=== PATIENT | male | born 2000 | race Caucasian/White ===

== ENCOUNTER → 2019-09-10 | Outpatient (CLI) | payer OTHER, MEDICARE ==
[2019-09-10 12:35] LABS: Basophils # (A) 0.1 k/uL (0-0.2); Basophils % (A) 1 %; Eosinophils # (A) 0.4 k/uL (0-0.7); Eosinophils % (A) 5 %; HCT 47.7 % (39.0-53.0); HGB 15.9 gm/dL (13.0-17.5); Lymphocytes # (A) 1.8 k/uL (1.0-4.8); Lymphocytes % (A) 22 %; MCH 30.6 pg (25.0-35.0); MCHC 33.4 g/dL (31.0-37.0); MCV 91.5 fL (80.0-100.0); Monocytes # (A) 0.4 k/uL (0-1.0); Monocytes % (A) 5 %; Neutrophils # (A) 5.5 k/uL (1.3-7.7); Neutrophils % (A) 66 %; Platelet Count 198 k/uL (150-450); RBC 5.21 m/uL (4.30-5.90); RDW 11.9 % (11.5-15.5); WBC 8.3 k/uL (3.8-10.6)
[2019-09-10 19:00] LABS: ALT 15 U/L (10-49); AST 20 U/L (14-35); Albumin/Globulin Ratio 2.25 (1.60-3.17); Alkaline Phosphatase 80 U/L (41-126); Chol/HDL Ratio 1.93; Cholesterol 87 mg/dL (0-200); Glucose 82 mg/dL (70-110); Total Bilirubin 0.4 mg/dL (0.2-1.2); Total Protein 6.5 g/dL (6.2-8.2); Triglycerides <50.0 mg/dL (0.0-149.0)
[2019-09-10 20:04] LABS: Hemoglobin A1C 4.9 % (4.0-6.0)
== END | disposition home or self-care (01) ==
LOC: LABWHC1 11:33
PROVIDERS: ATTEND Nurse Practitioner Family
DX: Z51.81 Encounter for therapeutic drug level monitoring (principal); Z79.899 Other long term (current) drug therapy
CPT/HCPCS: 36415; 80061; 80076; 82947; 83036; 84439; 84443; 85025

== ENCOUNTER 2020-12-15 09:12 | Emergency (ER) | payer MEDICARE, OTHER ==
--- NOTE | 2020-12-15 09:37 | ED ---
Psych HPI - General Source: patient, RN notes reviewed Mode of arrival: ambulatory Limitations: no limitations <Khai Farnsworth - Last Filed: 12/15/20 09:36> <Layton Castle - Last Filed: 12/19/20 13:02> - General Chief Complaint: Psychiatric Symptoms Stated Complaint: Mental Health Time Seen by Provider: 12/15/20 09:16 - History of Present Illness Initial Comments: 20-year-old male presents emergency department via EMS from [facility] for psychiatric evaluation. Patient had increased agitation recently. Information is very limited as patient is not cystic. Patient reportedly had a new psychiatric medication patch applied which was removed they feel that symptoms started after this medication was started (Khai Farnsworth) - Related Data Home Medications Medication Instructions Recorded Confirmed Asenapine [Secuado 3.8MG Patch] 1 patch TRANSDERM Q24H 12/15/20 12/15/20 Divalproex Sprinkle [Depakote 250 mg PO BID@0700,199912/15/20 12/15/20 Sprinkle] Melatonin 6 mg PO HS 12/15/20 12/15/20 Methylphenidate HCl [Ritalin LA] 20 mg PO DAILY@0700 12/15/20 12/15/20 Mirtazapine [Remeron] 30 mg PO HS@199912/15/20 12/15/20 diphenhydrAMINE [Benadryl] 25 mg PO Q4H PRN 12/15/20 12/15/20 Allergies Allergy/AdvReac Type Severity Reaction Status Date / Time No Known Allergies Allergy Verified 12/15/20 10:48 Review of Systems ROS Other: All systems not noted in ROS Statement are negative. <hKai Farnsworth - Last Filed: 12/15/20 09:36> ROS Other: All systems not noted in ROS Statement are negative. <Layton Castle - Last Filed: 12/19/20 13:02> ROS Statement: Those systems with pertinent positive or pertinent negative responses have been documented in the HPI. Past Medical History Additional Past Medical History / Comment(s): autism History of Any Multi-Drug Resistant Organisms: Unobtainable Past Surgical History: Unable to Obtain Past Psychological History: Unable to Obtain Smoking Status: Unknown if ever smoked Past Alcohol Use History: Unable to Obtain Past Drug Use History: Unable to Obtain <Khai Farnsworth M - Last Filed: 12/15/20 09:36> General Exam Limitations: language barrier, altered mental status General appearance: alert, in no apparent distress Head exam: Present: atraumatic, normocephalic, normal inspection Eye exam: Present: normal appearance, PERRL, EOMI. Absent: scleral icterus, conjunctival injection, periorbital swelling ENT exam: Present: normal exam, mucous membranes moist Neck exam: Present: normal inspection, full ROM. Absent: tenderness, meningismus, lymphadenopathy Respiratory exam: Present: normal lung sounds bilaterally. Absent: respiratory distress, wheezes, rales, rhonchi, stridor Cardiovascular Exam: Present: regular rate, normal rhythm, normal heart sounds. Absent: systolic murmur, diastolic murmur, rubs, gallop, clicks Neurological exam: Present: alert Skin exam: Present: warm, dry, intact, normal color. Absent: rash <Khai Farnsworth - Last Filed: 12/15/20 09:36> Course Vital Signs 12/15/20 12/15/20 12/15/20 09:30 19:09 21:00 Temperature 97.4 F L Pulse Rate 79 79 Respiratory 18 18 16 Rate Blood Pressure 117/69 117/98 O2 Sat by Pulse 98 98 Oximetry 12/15/20 12/15/20 12/16/20 22:00 23:00 02:00 Temperature Pulse Rate Respiratory 17 16 17 Rate Blood Pressure O2 Sat by Pulse Oximetry 12/16/20 12/16/20 12/16/20 03:00 04:00 05:00 Temperature 98.5 F Pulse Rate 67 Respiratory 16 17 17 Rate Blood Pressure 115/69 O2 Sat by Pulse 99 Oximetry 12/16/20 12/17/20 12/18/20 12:20 22:05 06:40 Temperature 97.7 F Pulse Rate 98 108 H Respiratory 18 14 16 Rate Blood Pressure 126/61 114/69 130/88 O2 Sat by Pulse 98 96 100 Oximetry 12/18/20 12/18/20 12/18/20 07:32 12:35 20:00 Temperature 98.1 F Pulse Rate 99 107 H Respiratory 16 16 Rate Blood Pressure 117/80 126/76 O2 Sat by Pulse 98 99 Oximetry 12/18/20 12/19/20 21:00 06:35 Temperature 98.2 F Pulse Rate 96 Respiratory 16 20 Rate Blood Pressure 127/88 O2 Sat by Pulse 98 Oximetry Medical Decision Making - Lab Data Result diagrams: 12/16/20 15:30 12/16/20 15:30 <Layton Castle - Last Filed: 12/19/20 13:02> - Medical Decision Making 20-year-old male who had been reported in the emergency department awaiting placement for increased aggression. At approximately 1300 on December 19 the brother who is by mouth a and the [facility] had planned to take the patient back to his [facility] where he resides. Patient will be released into the care of the staff at his [facility]. (Layton Castle) - Lab Data Lab Results 12/16/20 12/16/20 12/18/20 Range/Units 15:30 15:30 09:25 WBC 6.8 (3.8-10.6) k/uL RBC 5.10 (4.30-5.90) m/uL Hgb 16.1 (13.0-17.5) gm/dL Hct 45.1 (39.0-53.0) % MCV 88.6 (80.0-100.0) fL MCH 31.7 (25.0-35.0) pg MCHC 35.8 (31.0-37.0) g/dL RDW 12.1 (11.5-15.5) % Plt Count 266 (150-450) k/uL MPV 8.0 Neutrophils % 66 % Lymphocytes % 24 % Monocytes % 7 % Eosinophils % 2 % Basophils % 0 % Neutrophils # 4.5 (1.3-7.7) k/uL Lymphocytes # 1.6 (1.0-4.8) k/uL Monocytes # 0.5 (0-1.0) k/uL Eosinophils # 0.1 (0-0.7) k/uL Basophils # 0.0 (0-0.2) k/uL Sodium 139 (137-145) mmol/L Potassium 4.0 (3.5-5.1) mmol/L Chloride 102 (98-107) mmol/L Carbon Dioxide 22 (22-30) mmol/L Anion Gap 15 mmol/L BUN 16 (9-20) mg/dL Creatinine 0.63 L (0.66-1.25) mg/dL Est GFR (CKD-EPI)AfAm >90 (>60 ml/min/1.73 sqM) Est GFR (CKD-EPI)NonAf >90 (>60 ml/min/1.73 sqM) Glucose 73 L (74-99) mg/dL Calcium 10.1 (8.4-10.2) mg/dL Total Bilirubin 0.7 (0.2-1.3) mg/dL AST 71 H (17-59) U/L ALT 26 (4-49) U/L Alkaline Phosphatase 86 (38-126) U/L Total Protein 7.8 (6.3-8.2) g/dL Albumin 4.6 (3.5-5.0) g/dL Vitamin B12 110.0 L (200.0-944.0) pg/mL Folate Cancelled TSH 2.980 (0.465-4.680) mIU/L Coronavirus (PCR) Not Detected (Not Detectd) Disposition <Khai Farnsworth - Last Filed: 12/15/20 09:36> Is patient prescribed a controlled substance at d/c from ED?: No Time of Disposition: 13:02 <Layton Castle - Last Filed: 12/19/20 13:02> Clinical Impression: Autism Disposition: HOME SELF-CARE Condition: Fair Instructions (If sedation given, give patient instructions): Autism Spectrum Disorder (DC) Referrals: None,Stated [Primary Care Provider] - 1-2 days
[2020-12-15] MEDS ORDERED: LORazepam 2 MG/ML INJ IM STA (11:47)
[2020-12-15] MEDS ORDERED: ZIPRASIDONE 20 MG VIAL IM STA (12:33)
[2020-12-15] MEDS: LORazepam 2 MG/ML INJ IM PRN (23:03)
[2020-12-16] MEDS ORDERED: DIVALPROEX SPRINKLE 125 MG CAP.SPRINK PO SCH (09:00)
[2020-12-16] MEDS: LORazepam 2 MG/ML INJ IM PRN (09:01)
--- NOTE | 2020-12-16 12:59 | P.CN ---
Psychiatric Consult - . Consult date: 12/16/20 Consult:: IDENTIFYING DATA: This patient is a 20-year-old, single, development disabled, male who presents to the emergency department for psychiatric evaluation and increased agitation. HISTORY OF PRESENT ILLNESS: The patient presented to the hospital on 12/15/2020 for increasing agitation. Patient is nonverbal and unable to participate in the psychiatric interview. Collateral information was provided by the patient's outpatient psychiatrist Dr Garsia. Patient was reportedly started on an asenapine patch and depakote sprinkles by [facility] for increasing agitation. Reportedly since starting this medication a few days ago, the patient began experiencing a worsening of behaviors. At baseline patient has severe autism and is noncommunicative and difficult to direct. As per Dr. Garsia, the patient has been nonadherent with any prescribed medications and therefore was placed on the patch so that he may receive some form of treatment for his agitation. Reportedly, the patient would only take his medications if it was crushed up int o his food. PAST PSYCHIATRIC HISTORY: The patient has severe autism. Past medication trials include Saphris and Depakote. Unable to determine if he has had any prior inpatient psychiatric hospitalizations. He is currently open with [facility] in the outpatient setting. PAST MEDICAL HISTORY: Additional Past Medical History / Comment(s): autism History of Any Multi-Drug Resistant Organisms: Unobtainable Past Surgical History: Unable to Obtain Past Psychological History: Unable to Obtain Smoking Status: Unknown if ever smoked Past Alcohol Use History: Unable to Obtain Past Drug Use History: Unable to Obtain ALLERGIES: NO KNOWN DRUG ALLERGIES CHEMICAL DEPENDENCY HISTORY: Unable to obtain FAMILY PSYCHIATRIC/SUBSTANCE USE HISTORY: Unable to obtain SOCIAL HISTORY: The patient has been staying at [address] [place] [address] in [place], [place]. He is single and never . His sibling Johann is in the process of becoming his guardian. MENTAL STATUS EXAM: General Appearance: Patient appears to be stated age is alert, uncooperative, and disheveled. He is wearing a hospital gown and is currently in restraints in bed. Behavior: Patient is displaying psychomotor agitation. Eye contact is poor. He appears to be hyper oral and attempting to place feces in his mouth. Speech: Patient is nonverbal. Mood/Affect: Unable to assess. Suicidality/Homicidality: Unable to assess. Perceptions: Unable to assess. Though content/process: Unable to assess. Memory and concentration: Grossly poor. Judgment and insight: Very poor. IMPRESSIONS: Developmental disability - autism spectrum disorder PLAN: -At this time patient DOES meet criteria for inpatient psychiatric admission. He will require placement in a psychiatric facility that can accommodate his developmental disability. -Patient DOES NOT have decision making capacity at this time and is unable to reason through and communicate/appreciate the risks, benefits and alternatives to treatment. -Would recommend the following medication changes/additions: We will increase his Depakote sprinkles to 250 mg by mouth daily and 500 mg at bedtime for mood stabilization We will discontinue Zyprexa Zydis and start Haldol oral solution 2 mg by mouth twice a day to aid in medication adherence for mood stabilization Continue Remeron 30 mg by mouth at bedtime for insomnia Continue Zyprexa when necessary 5 mg IM every 8 hours for agitation -Will continue to follow along 12/16/20 12:49
[2020-12-16] MEDS: HALOPERIDOL ORAL SOLN 10 MG/5 ML CUP PO SCH ×2 (15:19→21:45)
[2020-12-16 15:45] LABS: Basophils % (A) 0 %; Eosinophils # (A) 0.1 k/uL (0-0.7); Eosinophils % (A) 2 %; HCT 45.1 % (39.0-53.0); HGB 16.1 gm/dL (13.0-17.5); Lymphocytes # (A) 1.6 k/uL (1.0-4.8); Lymphocytes % (A) 24 %; MCH 31.7 pg (25.0-35.0); MCHC 35.8 g/dL (31.0-37.0); MCV 88.6 fL (80.0-100.0); Monocytes # (A) 0.5 k/uL (0-1.0); Monocytes % (A) 7 %; Neutrophils # (A) 4.5 k/uL (1.3-7.7); Neutrophils % (A) 66 %; Platelet Count 266 k/uL (150-450); RDW 12.1 % (11.5-15.5); WBC 6.8 k/uL (3.8-10.6)
[2020-12-16 16:00] LABS: ALT 26 U/L (4-49); AST 71 U/L (17-59); African American GFR (CKD) >90 (>60 ml/min/1.73 sqM); Albumin 4.6 g/dL (3.5-5.0); Alkaline Phosphatase 86 U/L (38-126); Anion Gap 15 mmol/L; Blood Urea Nitrogen 16 mg/dL (9-20); Calcium 10.1 mg/dL (8.4-10.2); Carbon Dioxide 22 mmol/L (22-30); Chloride 102 mmol/L (98-107); Glucose 73 mg/dL (74-99); Non-African American GFR(CKD) >90 (>60 ml/min/1.73 sqM); Sodium 139 mmol/L (137-145); Total Bilirubin 0.7 mg/dL (0.2-1.3); Total Protein 7.8 g/dL (6.3-8.2)
[2020-12-16] MEDS: MIRTAZAPINE 15 MG TAB PO SCH (20:58)
[2020-12-16] MEDS: MELATONIN 3 MG TABLET PO SCH (20:58)
[2020-12-16] MEDS ORDERED: HALOPERIDOL ORAL SOLN 10 MG/5 ML CUP PO SCH (21:00)
[2020-12-16] MEDS ORDERED: OLANZapine ODT 5 MG TAB PO SCH ×2 (21:00)
[2020-12-16] MEDS: DIVALPROEX SPRINKLE 125 MG CAP.SPRINK PO SCH (21:32)
[2020-12-17] MEDS: OLANZapine 10 MG VIAL IM PRN (01:10)
[2020-12-17] MEDS: HALOPERIDOL ORAL SOLN 10 MG/5 ML CUP PO SCH ×2 (01:14→21:41)
[2020-12-17] MEDS: DIVALPROEX SPRINKLE 125 MG CAP.SPRINK PO SCH ×2 (09:10→21:42)
[2020-12-17] MEDS ORDERED: HALOPERIDOL ORAL SOLN 10 MG/5 ML CUP PO STA (14:00)
[2020-12-17] MEDS: MIRTAZAPINE 15 MG TAB PO SCH (21:39)
[2020-12-17] MEDS: MELATONIN 3 MG TABLET PO SCH (21:39)
[2020-12-18] MEDS: HALOPERIDOL ORAL SOLN 10 MG/5 ML CUP PO SCH ×2 (08:46→21:52)
[2020-12-18] MEDS: DIVALPROEX SPRINKLE 125 MG CAP.SPRINK PO SCH ×2 (08:46→21:53)
[2020-12-18] MEDS: MIRTAZAPINE 15 MG TAB PO SCH (21:53)
[2020-12-18] MEDS: MELATONIN 3 MG TABLET PO SCH (21:53)
[2020-12-19] MEDS: OLANZapine 10 MG VIAL IM PRN ×2 (03:17→15:32)
[2020-12-19 07:19] VITALS: TEMP 98.2
[2020-12-19] MEDS: HALOPERIDOL ORAL SOLN 10 MG/5 ML CUP PO SCH (10:12)
[2020-12-19] MEDS: DIVALPROEX SPRINKLE 125 MG CAP.SPRINK PO SCH (11:45)
[2020-12-19 17:19] VITALS: BP 122/88; PULSE 86; RESP 18
== END 2020-12-19 17:38 | disposition home or self-care (01) ==
LOC: EC 09:12
DX: F84.0 Autistic disorder (principal); Z20.822 Contact with and (suspected) exposure to COVID-19
CPT/HCPCS: 99285; 96372; 82075; 36415; 80053; 84443; 82607; 85025; J2060 ×2; J3486; 82746

== ENCOUNTER 2021-01-11 17:32 | Emergency (ER) | payer MEDICARE, OTHER ==
[2021-01-11 18:47] LABS: Basophils % (A) 0 %; Eosinophils # (A) 0.1 k/uL (0-0.7); Eosinophils % (A) 1 %; HCT 48.5 % (39.0-53.0); HGB 16.1 gm/dL (13.0-17.5); Lymphocytes # (A) 1.2 k/uL (1.0-4.8); Lymphocytes % (A) 10 %; MCH 30.6 pg (25.0-35.0); MCHC 33.3 g/dL (31.0-37.0); MCV 91.9 fL (80.0-100.0); Mean Platelet Volume 7.9; Monocytes # (A) 0.7 k/uL (0-1.0); Monocytes % (A) 6 %; Neutrophils # (A) 9.5 k/uL (1.3-7.7); Neutrophils % (A) 82 %; Platelet Count 222 k/uL (150-450); RBC 5.27 m/uL (4.30-5.90); RDW 12.9 % (11.5-15.5); WBC 11.6 k/uL (3.8-10.6)
--- NOTE | 2021-01-11 19:05 | ED ---
General Adult HPI - General Chief complaint: Recheck/Abnormal Lab/Rx Stated complaint: poss med reaction Time Seen by Provider: 01/11/21 17:39 Source: patient, EMS, RN notes reviewed, old records reviewed Mode of arrival: EMS Limitations: language barrier, altered mental status - History of Present Illness Initial comments: 20-year-old male who had presented from the home where he resides with an elevated heart rate and elevated blood pressure. He apparently also been somewhat diaphoretic. He was seen in this emergency Department with the last month for increased agitation and his medications were adjusted at at that time including increasing his Depakote and changing Zyprexa to Haldol. Patient is nonverbal and unable to provide any history or complaints. There was no reported fever or vomiting. - Related Data Home Medications Medication Instructions Recorded Confirmed Divalproex Sprinkle [Depakote 500 mg PO BID@0700,199912/15/20 01/11/21 Sprinkle] Methylphenidate HCl [Ritalin LA] 20 mg PO DAILY@0700 12/15/20 01/11/21 diphenhydrAMINE [Benadryl] 25 mg PO HS@199912/15/20 01/11/21 Haloperidol Oral Soln [Haldol Oral 6 mg PO HS@199901/11/21 01/11/21 Soln] LORazepam ORAL CONC [Ativan 1 mg PO BID@0800,1500 01/11/21 01/11/21 Intensol] LORazepam ORAL CONC [Ativan 2 mg PO HS@199901/11/21 01/11/21 Intensol] Allergies Allergy/AdvReac Type Severity Reaction Status Date / Time No Known Allergies Allergy Verified 01/11/21 18:23 Review of Systems ROS Statement: Those systems with pertinent positive or pertinent negative responses have been documented in the HPI. ROS Other: All systems not noted in ROS Statement are negative. Past Medical History Additional Past Medical History / Comment(s): autism, cerebral palsy, cognitive delay History of Any Multi-Drug Resistant Organisms: Unobtainable Past Surgical History: Unable to Obtain Past Psychological History: ADD/ADHD Smoking Status: Unknown if ever smoked Past Alcohol Use History: Unable to Obtain Past Drug Use History: Unable to Obtain General Exam Limitations: language barrier, altered mental status General appearance: alert, in no apparent distress Head exam: Present: atraumatic, normocephalic Eye exam: Present: normal appearance, PERRL ENT exam: Present: mucous membranes dry Neck exam: Present: normal inspection. Absent: tenderness, meningismus Respiratory exam: Present: normal lung sounds bilaterally. Absent: respiratory distress, wheezes Cardiovascular Exam: Present: normal rhythm, tachycardia (Heart rate around 100) GI/Abdominal exam: Present: soft. Absent: distended, tenderness, guarding Extremities exam: Present: normal inspection, normal capillary refill. Absent: pedal edema, calf tenderness Neurological exam: Present: alert, other (Patient is ambulatory in the emergency department.). Absent: oriented X3 Skin exam: Present: warm, diaphoretic. Absent: cyanosis Course Vital Signs 01/11/21 01/11/21 17:39 19:59 Temperature 98.0 F 97.8 F Pulse Rate 111 H 117 H Respiratory 16 18 Rate Blood Pressure 144/99 137/79 O2 Sat by Pulse 100 100 Oximetry EKG Findings - EKG Comments: EKG Findings:: EKG: Sinus tachycardia with short CT baseline artifact, no ST segment elevation, rate of 113, CT interval 84, QRS duration 80, QTC 441. Medical Decision Making - Medical Decision Making 20-year-old male brought in for possible medication reaction, there was concern that the patient had an elevated heart rate and elevated blood pressure secondary to recent medication change. He was started on increased dose of Depakote. His Depakote level today is therapeutic but on the low end of normal at 55. He has mild leukocytosis of uncertain etiology, normal electrolytes. EKG showing sinus tachycardia 113, he is somewhat agitated at the time of this EKG and throughout his stay in the emergency department although he is able to be redirected. He is nonverbal and unable to give history. At this time patient will be discharged with very close outpatient follow-up and return parameters. Vital signs will be monitored. - Lab Data Result diagrams: 01/11/21 18:39 01/11/21 18:39 Lab Results 01/11/21 01/11/21 Range/Units 18:39 18:39 WBC 11.6 H (3.8-10.6) k/uL RBC 5.27 (4.30-5.90) m/uL Hgb 16.1 (13.0-17.5) gm/dL Hct 48.5 (39.0-53.0) % MCV 91.9 (80.0-100.0) fL MCH 30.6 (25.0-35.0) pg MCHC 33.3 (31.0-37.0) g/dL RDW 12.9 (11.5-15.5) % Plt Count 222 (150-450) k/uL MPV 7.9 Neutrophils % 82 % Lymphocytes % 10 % Monocytes % 6 % Eosinophils % 1 % Basophils % 0 % Neutrophils # 9.5 H (1.3-7.7) k/uL Lymphocytes # 1.2 (1.0-4.8) k/uL Monocytes # 0.7 (0-1.0) k/uL Eosinophils # 0.1 (0-0.7) k/uL Basophils # 0.0 (0-0.2) k/uL Sodium 139 (137-145) mmol/L Potassium 4.4 (3.5-5.1) mmol/L Chloride 104 (98-107) mmol/L Carbon Dioxide 26 (22-30) mmol/L Anion Gap 9 mmol/L BUN 16 (9-20) mg/dL Creatinine 0.56 L (0.66-1.25) mg/dL Est GFR (CKD-EPI)AfAm >90 (>60 ml/min/1.73 sqM) Est GFR (CKD-EPI)NonAf >90 (>60 ml/min/1.73 sqM) Glucose 113 H (74-99) mg/dL Calcium 10.0 (8.4-10.2) mg/dL Magnesium 2.0 (1.6-2.3) mg/dL Total Bilirubin 0.3 (0.2-1.3) mg/dL AST 39 (17-59) U/L ALT 27 (4-49) U/L Alkaline Phosphatase 76 (38-126) U/L Total Protein 7.2 (6.3-8.2) g/dL Albumin 4.3 (3.5-5.0) g/dL Valproic Acid 55.8 ug/mL Disposition Clinical Impression: Dehydration, Autism Disposition: HOME SELF-CARE Condition: Fair Additional Instructions: Please monitor heart rate and blood pressure at home. Please watch for fever. Return the emergency department with any worsening or changing signs or sym ptoms. Is patient prescribed a controlled substance at d/c from ED?: No Referrals: None,Stated [Primary Care Provider] - 1-2 days Time of Disposition: 20:09
[2021-01-11 19:20] LABS: ALT 27 U/L (4-49); AST 39 U/L (17-59); African American GFR (CKD) >90 (>60 ml/min/1.73 sqM); Albumin 4.3 g/dL (3.5-5.0); Alkaline Phosphatase 76 U/L (38-126); Anion Gap 9 mmol/L; Blood Urea Nitrogen 16 mg/dL (9-20); Carbon Dioxide 26 mmol/L (22-30); Chloride 104 mmol/L (98-107); Glucose 113 mg/dL (74-99); Non-African American GFR(CKD) >90 (>60 ml/min/1.73 sqM); Potassium 4.4 mmol/L (3.5-5.1); Sodium 139 mmol/L (137-145); Total Bilirubin 0.3 mg/dL (0.2-1.3); Total Protein 7.2 g/dL (6.3-8.2)
[2021-01-11 19:26] LABS: Valproic Acid (Depakene) 55.8 ug/mL
[2021-01-11 20:00] VITALS: BP 137/79; RESP 18; TEMP 97.8
[2021-01-11 20:12] VITALS: PULSE 104
== END 2021-01-11 20:50 | disposition home or self-care (01) ==
LOC: EEVIPCON 17:32 → EC 17:32
DX: E86.0 Dehydration (principal); F84.0 Autistic disorder
CPT/HCPCS: 36415; 80053; 80164; 83735; 85025; 93005; 99284

== ENCOUNTER 2021-01-18 11:00 | Emergency (ER) | payer MEDICARE, OTHER ==
[2021-01-18 11:11] VITALS: BP 126/79; PULSE 126; RESP 18; TEMP 98.3
--- NOTE | 2021-01-18 11:59 | CT ---
EXAMINATION TYPE: CT brain wo con DATE OF EXAM: 01/18/2021 COMPARISON: None HISTORY: 20-year-old male Fall with Left supraorbital injury. TECHNIQUE: Examination was done in axial plane without intravenous contrast. Coronal and sagittal r econstructions performed. CT DLP: 2481.4 mGycm Automated exposure control for dose reduction was used. FINDINGS: There is no evidence of acute intracranial hemorrhage, acute ischemic changes, mass, mass-effect, or extra-axial fluid collection. There is no effacement of cerebral sulci or basal subarachnoid cister ns. There is no hydrocephalus. There is no midline shift. Gimenez-white matter distinction is preserv ed. Some early cerebral cortical volume loss. Leftward nasal septal deviation. Orbits and globes appear symmetric and intact. Paranasal sinuses and mastoid air cells are clear. No calvarial fracture. IMPRESSION: No acute intracranial abnormality seen.
[2021-01-18] MEDS ORDERED: LORazepam 2 MG/ML INJ IM STA (12:08)
--- NOTE | 2021-01-18 12:12 | ED ---
General Adult HPI - General Chief complaint: Extremity Injury, Upper Stated complaint: Hematoma on head Time Seen by Provider: 01/18/21 11:18 Source: EMS, RN notes reviewed Mode of arrival: EMS Limitations: altered mental status - History of Present Illness Initial comments: 20-year-old male presents from [facility] home for increased agitation after stopping Haldol. Patient was stopped his medication yesterday of Haldol. It is unclear why he was stopped. Patient is nonverbal and will report given. Patient was sent in to evaluate after head injury. Patient reportedly hit herself off the wall. No other reported injuries or complaints from staff. - Related Data Home Medications Medication Instructions Recorded Confirmed Divalproex Sprinkle [Depakote 500 mg PO BID@0700,199912/15/20 01/11/21 Sprinkle] Methylphenidate HCl [Ritalin LA] 20 mg PO DAILY@0700 12/15/20 01/11/21 diphenhydrAMINE [Benadryl] 25 mg PO HS@199912/15/20 01/11/21 Haloperidol Oral Soln [Haldol Oral 6 mg PO HS@199901/11/21 01/11/21 Soln] LORazepam ORAL CONC [Ativan 1 mg PO BID@0800,1500 01/11/21 01/11/21 Intensol] LORazepam ORAL CONC [Ativan 2 mg PO HS@199901/11/21 01/11/21 Intensol] Allergies Allergy/AdvReac Type Severity Reaction Status Date / Time No Known Allergies Allergy Verified 01/11/21 18:23 Review of Systems ROS Statement: Those systems with pertinent positive or pertinent negative responses have been documented in the HPI. ROS Other: All systems not noted in ROS Statement are negative. Past Medical History Additional Past Medical History / Comment(s): autism, cerebral palsy, cognitive delay History of Any Multi-Drug Resistant Organisms: Unobtainable Past Surgical History: Unable to Obtain Past Psychological History: ADD/ADHD Smoking Status: Unknown if ever smoked Past Alcohol Use History: Unable to Obtain Past Drug Use History: Unable to Obtain General Exam Limitations: altered mental status General appearance: alert, in no apparent distress Head exam: Present: atraumatic, normocephalic. Absent: normal inspection (Small hematoma left) Eye exam: Present: normal appearance, PERRL, EOMI. Absent: scleral icterus, conjunctival injection, periorbital swelling ENT exam: Present: normal exam, mucous membranes moist Neck exam: Present: normal inspection. Absent: tenderness, meningismus, lymphadenopathy Respiratory exam: Present: normal lung sounds bilaterally. Absent: respiratory distress, wheezes, rales, rhonchi, stridor Cardiovascular Exam: Present: normal rhythm, tachycardia, normal heart sounds. Absent: systolic murmur, diastolic murmur, rubs, gallop, clicks GI/Abdominal exam: Present: soft, normal bowel sounds. Absent: distended, tenderness, guarding, rebound, rigid Neurological exam: Present: alert Skin exam: Present: warm, dry, intact, normal color. Absent: rash Course Vital Signs 01/18/21 11:07 Temperature 98.3 F Pulse Rate 126 H Respiratory 18 Rate Blood Pressure 126/79 O2 Sat by Pulse 98 Oximetry Medical Decision Making - Medical Decision Making CT is unremarkable. Patient was sent in to evaluate for head injury there is no intracranial hemorrhage or mass effect. Patient did have some increased agitation most likely from being stopped of his haldol. Patient was given Ativan will be discharged. Disposition Clinical Impression: Head injury Disposition: HOME SELF-CARE Condition: Stable Instructions (If sedation given, give patient instructions): Head Injury (ED) Additional Instructions: Please return to the Emergency Department if symptoms worsen or any other concerns. Is patient prescribed a controlled substance at d/c from ED?: No Referrals: None,Stated [Primary Care Provider] - 1-2 days Time of Disposition: 12:11
== END 2021-01-18 12:44 | disposition home or self-care (01) ==
LOC: EC 11:00
DX: S09.90XA Unspecified injury of head, initial encounter (principal); G80.9 Cerebral palsy, unspecified; F84.0 Autistic disorder; W22.01XA Walked into wall, initial encounter
CPT/HCPCS: 70450; 99284; 96372; J2060

== ENCOUNTER 2021-09-02 08:25 | Emergency (ER) | payer MEDICARE, OTHER ==
[2021-09-02 08:40] VITALS: BP 117/79; PULSE 145; RESP 20; TEMP 100.2
[2021-09-02] MEDS ORDERED: diphenhydrAMINE 50 MG/ML 1 ML VIAL IVP STA (08:45)
[2021-09-02] MEDS ORDERED: LORazepam 2 MG/ML INJ IV STA ×2 (08:45→16:15)
[2021-09-02] MEDS ORDERED: SODIUM CHLORIDE 0.9% 1,000 ML IV STA ×3 (08:45→14:51)
--- NOTE | 2021-09-02 09:13 | ED ---
Altered Mental Status HPI - General Chief Complaint: Altered Mental Status Stated Complaint: Behavior Changes Time Seen by Provider: 09/02/21 08:40 Source: EMS, RN notes reviewed, old records reviewed Mode of arrival: EMS Limitations: physical limitation - History of Present Illness Initial Comments: 21-year-old male with a history of behavioral issues who apparently is been acting out recently he is going through medication changes this time he appar ently has been acting more last several days and she threw himself on the floor earlier today. No fever chills nausea vomiting he has been tremulous no reports of cough no other information available at this time MD Complaint: other - Related Data Home Medications Medication Instructions Recorded Confirmed Divalproex Sprinkle [Depakote 500 mg PO BID@0700,199912/15/20 09/02/21 Sprinkle] Methylphenidate HCl [Ritalin LA] 20 mg PO DAILY@0700 12/15/20 09/02/21 diphenhydrAMINE [Benadryl] 25 mg PO HS@199912/15/20 09/02/21 LORazepam ORAL CONC [Ativan 8 mg PO BID@0700,149901/11/21 09/02/21 Intensol] Benztropine Mesylate [Cogentin] 0.5 mg PO BID@0700,199901/18/21 09/02/21 LORazepam ORAL CONC [Ativan 2 mg PO HS 01/18/21 09/02/21 Intensol] Haloperidol Con 2mg/Ml 2 mg IM BID@0700,199909/02/21 09/02/21 Siltussin Sa Syrup 100/5ml 1 dose PO DIRECTED PRN 09/02/21 09/02/21 Allergies Allergy/AdvReac Type Severity Reaction Status Date / Time No Known Allergies Allergy Verified 09/02/21 10:12 Review of Systems ROS Statement: Those systems with pertinent positive or pertinent negative responses have been documented in the HPI. ROS Other: All systems not noted in ROS Statement are negative. Past Medical History Additional Past Medical History / Comment(s): autism, cerebral palsy, cognitive delay History of Any Multi-Drug Resistant Organisms: Unobtainable Past Surgical History: Unable to Obtain Past Psychological History: ADD/ADHD Smoking Status: Unknown if ever smoked Past Alcohol Use History: Unable to Obtain Past Drug Use History: Unable to Obtain General Exam - General Exam Comments Initial Comments: This is a well-developed sec appearing male who is awake alert demonstrate some tremor Limitations: physical limitation General appearance: alert, anxious Head exam: Present: other (Beneficial abrasion lacerations seen over the right lateral orbit. Aspect no step-off no crepitation no active bleeding no repair indicated at this time) Eye exam: Present: normal appearance ENT exam: Present: mucous membranes dry Neck exam: Present: normal inspection, full ROM, other Respiratory exam: Present: normal lung sounds bilaterally. Absent: respiratory distress, wheezes, rales, rhonchi, stridor Cardiovascular Exam: Present: normal rhythm, tachycardia, normal heart sounds. Absent: systolic murmur, diastolic murmur, rubs, gallop, clicks GI/Abdominal exam: Present: soft, normal bowel sounds. Absent: distended, tenderness, guarding, rebound, rigid Rectal exam: Present: deferred Extremities exam: Present: full ROM, normal capillary refill, other (Tremor no jessica ). Absent: tenderness, pedal edema, joint swelling, calf tenderness Back exam: Present: normal inspection Neurological exam: Present: alert, altered, CN II-XII intact. Absent: motor sensory deficit Psychiatric exam: Present: agitated Skin exam: Present: warm, dry, intact, normal color. Absent: rash Course Vital Signs 09/02/21 08:26 Temperature 100.2 F H Pulse Rate 145 H Respiratory 20 Rate Blood Pressure 117/79 O2 Sat by Pulse 95 Oximetry - Reevaluation(s) Reevaluation #1: 09/02/21 14:53 Reevaluation the patient patient has severe tremor it was later found that it is been going on for about a month patient does have a history of cerebral palsy ADD developmental delay. Additionally his elbow dosing from nighttime today time. Is also learned that he had fallen twice in last 2 days with the last time being apparent joint himself out of bed. Reevaluation #2: 09/02/21 14:54 Patient did require sedation to get the CAT scan I and ketamine was adminis tered. Medical Decision Making - Medical Decision Making I did discuss the findings [facility] ER to ER. Patient is evident evidence of dehydration and rhabdomyolysis and up to now a fever of unknown origin urine was unable to be obtained initially. Covid testing is negative - Lab Data Result diagrams: 09/02/21 09:47 09/02/21 09:47 Lab Results 09/02/21 09/02/21 09/02/21 Range/Units 09:47 09:47 09:47 WBC 13.7 H (3.8-10.6) k/uL RBC 5.31 (4.30-5.90) m/uL Hgb 16.7 (13.0-17.5) gm/dL Hct 48.5 (39.0-53.0) % MCV 91.3 (80.0-100.0) fL MCH 31.4 (25.0-35.0) pg MCHC 34.4 (31.0-37.0) g/dL RDW 12.1 (11.5-15.5) % Plt Count 213 (150-450) k/uL MPV 8.9 Neutrophils % 84 % Lymphocytes % 7 % Monocytes % 8 % Eosinophils % 0 % Basophils % 0 % Neutrophils # 11.5 H (1.3-7.7) k/uL Lymphocytes # 1.0 (1.0-4.8) k/uL Monocytes # 1.1 H (0-1.0) k/uL Eosinophils # 0.0 (0-0.7) k/uL Basophils # 0.0 (0-0.2) k/uL Sodium 139 (137-145) mmol/L Potassium 4.6 (3.5-5.1) mmol/L Chloride 100 (98-107) mmol/L Carbon Dioxide 22 (22-30) mmol/L Anion Gap 17 mmol/L BUN 20 (9-20) mg/dL Creatinine 0.88 (0.66-1.25) mg/dL Est GFR (CKD-EPI)AfAm >90 (>60 ml/min/1.73 sqM) Est GFR (CKD-EPI)NonAf >90 (>60 ml/min/1.73 sqM) Glucose 92 (74-99) mg/dL Lactic Ac Sepsis Rflx Plasma Lactic Acid Mino 2.6 H* (0.7-2.0) mmol/L Calcium 9.8 (8.4-10.2) mg/dL Magnesium 1.9 (1.6-2.3) mg/dL Total Bilirubin 1.2 (0.2-1.3) mg/dL AST 1101 H (17-59) U/L ALT 197 H (4-49) U/L Alkaline Phosphatase 60 (38-126) U/L Ammonia 16 (<30) umol/L Creatine Kinase 97952 H* (55-170) U/L Total Protein 7.4 (6.3-8.2) g/dL Albumin 4.6 (3.5-5.0) g/dL Influenza Type A (PCR) (Not Detectd) Influenza Type B (PCR) (Not Detectd) RSV (PCR) (Not Detectd) SARS-CoV-2 (PCR) (Not Detectd) 09/02/21 09/02/21 09/02/21 Range/Units 09:47 10:40 13:15 WBC (3.8-10.6) k/uL RBC (4.30-5.90) m/uL Hgb (13.0-17.5) gm/dL Hct (39.0-53.0) % MCV (80.0-100.0) fL MCH (25.0-35.0) pg MCHC (31.0-37.0) g/dL RDW (11.5-15.5) % Plt Count (150-450) k/uL MPV Neutrophils % % Lymphocytes % % Monocytes % % Eosinophils % % Basophils % % Neutrophils # (1.3-7.7) k/uL Lymphocytes # (1.0-4.8) k/uL Monocytes # (0-1.0) k/uL Eosinophils # (0-0.7) k/uL Basophils # (0-0.2) k/uL Sodium (137-145) mmol/L Potassium (3.5-5.1) mmol/L Chloride (98-107) mmol/L Carbon Dioxide (22-30) mmol/L Anion Gap mmol/L BUN (9-20) mg/dL Creatinine (0.66-1.25) mg/dL Est GFR (CKD-EPI)AfAm (>60 ml/min/1.73 sqM) Est GFR (CKD-EPI)NonAf (>60 ml/min/1.73 sqM) Glucose (74-99) mg/dL Lactic Ac Sepsis Rflx Y Plasma Lactic Acid Mino 1.0 (0.7-2.0) mmol/L Calcium (8.4-10.2) mg/dL Magnesium (1.6-2.3) mg/dL Total Bilirubin (0.2-1.3) mg/dL AST (17-59) U/L ALT (4-49) U/L Alkaline Phosphatase (38-126) U/L Ammonia (<30) umol/L Creatine Kinase (55-170) U/L Total Protein (6.3-8.2) g/dL Albumin (3.5-5.0) g/dL Influenza Type A (PCR) Not Detected (Not Detectd) Influenza Type B (PCR) Not Detected (Not Detectd) RSV (PCR) Not Detected (Not Detectd) SARS-CoV-2 (PCR) Not Detected (Not Detectd) - Radiology Data Radiology results: report reviewed (Imaging reviewed and I did discuss the case with the radiologist patient does have evidence of a left frontal subdural hematoma with a subarachnoid component. No mass effect seen), image reviewed Critical Care Time Critical Care Time: Yes Total Critical Care Time: 39 Critical Care Time: This did include initial assessment with history physical labs x-rays discussed with paramedics regarding the initial findings for reevaluation the patient review charting was available discussed with the radiologist discussed with the receiving physician discussion with the paramedics documentation of the above Disposition Clinical Impression: Subdural hematoma, Subarachnoid bleed, Fall, Rhabdomyolysis, Dehydration, Tachycardia Disposition: OTHER INSTITUTION NOT DEFINED Condition: Fair Referrals: Maddi Garsia MD [Primary Care Provider] - 1-2 days - Out of Hospital Transfer - Req. Specs Out of Hospital Transfer - Requested Specifics: Other Emergency Center
[2021-09-02] MEDS ORDERED: KETAMINE 50 MG/ML 10 ML VIAL IM ONE (09:24)
[2021-09-02 10:03] LABS: Basophils % (A) 0 %; Eosinophils % (A) 0 %; HCT 48.5 % (39.0-53.0); HGB 16.7 gm/dL (13.0-17.5); Lymphocytes % (A) 7 %; MCH 31.4 pg (25.0-35.0); MCHC 34.4 g/dL (31.0-37.0); MCV 91.3 fL (80.0-100.0); Mean Platelet Volume 8.9; Monocytes # (A) 1.1 k/uL (0-1.0); Monocytes % (A) 8 %; Neutrophils # (A) 11.5 k/uL (1.3-7.7); Neutrophils % (A) 84 %; Platelet Count 213 k/uL (150-450); RBC 5.31 m/uL (4.30-5.90); RDW 12.1 % (11.5-15.5); WBC 13.7 k/uL (3.8-10.6)
[2021-09-02 10:16] LABS: ALT 197 U/L (4-49); African American GFR (CKD) >90 (>60 ml/min/1.73 sqM); Albumin 4.6 g/dL (3.5-5.0); Alkaline Phosphatase 60 U/L (38-126); Anion Gap 17 mmol/L; Blood Urea Nitrogen 20 mg/dL (9-20); Calcium 9.8 mg/dL (8.4-10.2); Carbon Dioxide 22 mmol/L (22-30); Chloride 100 mmol/L (98-107); Glucose 92 mg/dL (74-99); Magnesium 1.9 mg/dL (1.6-2.3); Non-African American GFR(CKD) >90 (>60 ml/min/1.73 sqM); Potassium 4.6 mmol/L (3.5-5.1); Sodium 139 mmol/L (137-145); Total Bilirubin 1.2 mg/dL (0.2-1.3); Total Protein 7.4 g/dL (6.3-8.2)
[2021-09-02 10:35] LABS: AST 1101 U/L (17-59)
[2021-09-02 10:40] LABS: Lactic Acid, Venous 2.6 mmol/L (0.7-2.0)
[2021-09-02] MEDS ORDERED: HALOPERIDOL LACTATE 5 MG/ML 1 ML VIAL IM STA (10:45)
[2021-09-02 11:50] LABS: Creatine Kinase 83768 U/L (55-170)
[2021-09-02] MEDS ORDERED: DIPH,PERTUS(ACELL)TETVAC-LF 0.5 ML VIAL IM ONE (11:57)
--- NOTE | 2021-09-02 13:02 | CT ---
EXAMINATION TYPE: CT brain cspine wo con CT DLP: 1342.5 mGycm, Automated exposure control for dose reduction was used. DATE OF EXAM: 09/02/2021 12:45 PM COMPARISON: None.. CLINICAL INDICATION:Male, 21 years old with history of Trauma, altered mental status. TECHNIQUE: Brain: Multiple axial CT images of the brain were obtained without IV contrast. Cspine: Axial CT images from the skull base to the inferior aspect of T2 we obtained without intraven ous contrast. Coronal and sagittal reformatted images were also reviewed. FINDINGS: Brain: Extra-axial spaces: High Density blood products are seen over the convexity of the left frontal lobe with also high density within the sulci of the left frontal lobe. Ventricular system: Within normal limits Cerebral parenchyma: No acute intraparenchymal hemorrhage or mass effect. The blair-white junction is well differentiated. Cerebellum: Unremarkable. Mass effect: No evidence of midline shift. Intracranial vasculature: unremarkable Soft tissues: Normal. Calvarium/osseous structures: No depressed skull fracture. Paranasal sinuses and mastoid air cells: Clear. Visualized orbits: Orbital contents are intact. Cervical spine: Fracture: None. Osseous structures: Unremarkable Vertebral alignment: Within normal limits. Spinal canal/Neural Foramina: No evidence of significant spinal canal narrowing. No evidence of signi ficant neural foramina narrowing. Neck soft tissues: Prevertebral soft tissues are within normal limits. Other: The airway is patent. The lung apices are clear. Findings communicated to Dr. Layton Henderson MD on 09/02/2021 12:[address] Layton Lombardo. IMPRESSION: 1. Acute subdural hemorrhage over the convexity of the left frontal lobe with a small subarachnoid co mponent the left frontal lobe. No evidence of midline shift. 1. No evidence of cervical spine fracture.
--- NOTE | 2021-09-02 13:59 | XR ---
EXAMINATION TYPE: XR chest 1V DATE OF EXAM: 09/02/2021 1:37 PM COMPARISON:None CLINICAL INDICATION:Male, 21 years old with history of Fever; TECHNIQUE: Frontal view of the chest. FINDINGS: Lungs/Pleura: There is no evidence of pleural effusion, focal consolidation, or pneumothorax. Pulmonary vascularity: Unremarkable. Heart/mediastinum: Cardiomediastinal silhouette is unremarkable. Musculoskeletal: No acute osseous pathology. IMPRESSION: No acute cardiopulmonary disease/process.
== END 2021-09-02 16:35 | disposition other institution (70) ==
LOC: EC 08:25
DX: S06.5X9A Traumatic subdural hemorrhage with loss of consciousness of unspecified duration, initial encounter (principal); S06.6X9A Traumatic subarachnoid hemorrhage with loss of consciousness of unspecified duration, initial encounter; T79.6XXA Traumatic ischemia of muscle, initial encounter; E86.0 Dehydration; R00.0 Tachycardia, unspecified; R40.2412 Glasgow coma scale score 13-15, at arrival to emergency department; Z23 Encounter for immunization; Z20.822 Contact with and (suspected) exposure to COVID-19; W19.XXXA Unspecified fall, initial encounter
CPT/HCPCS: 36415; 80053; 82140; 82550; 83605; 83735; 85025; 87040; 87636; 71045; 72125; 70450; 90715; 99291; 96374; 96361; 96372; 90471; 96376; 96375; J2060; J1200; J1630

== ENCOUNTER 2021-12-19 19:33 | Emergency (ER) | payer MEDICARE, OTHER ==
[2021-12-19] MEDS ORDERED: SODIUM CHLORIDE 0.9% 1,000 ML IV STA (20:15)
--- NOTE | 2021-12-19 20:17 | ED ---
General Adult HPI - General Chief complaint: Seizure Stated complaint: seizure Time Seen by Provider: 12/19/21 20:05 Source: EMS, RN notes reviewed, old records reviewed, Caregiver Mode of arrival: EMS Limitations: altered mental status - History of Present Illness Initial comments: 21-year-old autistic male presents from extended care facility with caregiver. Patient had a seizure today lasting about 2 minutes. She states he was "flopping around like a fish" hit his head multiple times on the floor. He does have a history of seizures and his neurologist is weaning him off of Keppra, he is on Depakote 500 mg twice a day. Patient's last seizure was on December 08. His first seizure was New Year's Peggy and he was seen at [facility] after being found to have a small intracranial bleed. Patient is acting his normal self at this time per the caregiver. There is no evidence of head trauma. Patient does not appear to be in discomfort -: hour(s) Severity scale (1-10): 0 Associated Symptoms: other (seizure 2 minutes) - Related Data Home Medications Medication Instructions Recorded Confirmed Acetaminophen Oral Susp [Tylenol] 650 mg PO Q4H PRN 12/08/21 12/19/21 Famotidine [Pepcid] 20 mg PO BID@0700,199912/08/21 12/19/21 Fludrocortisone [Florinef] 0.1 mg PO TID@0700,1500,199912/08/21 12/19/21 FLUoxetine HCL [PROzac] 20 mg PO DAILY@0700 12/19/21 12/19/21 LORazepam [Ativan] 1 mg PO DAILY PRN 12/19/21 12/19/21 Valproic Acid [Depakene] 500 mg PO BID@0700,199912/19/21 12/19/21 Ziprasidone [Geodon] 20 mg PO BID@0700,1700 12/19/21 12/19/21 cloNIDine HCL [Catapres] 0.1 mg PO BID@0700,1700 12/19/21 12/19/21 hydrOXYzine HCL [Atarax] 25 - 50 mg PO TID PRN 12/19/21 12/19/21 Allergies Allergy/AdvReac Type Severity Reaction Status Date / Time No Known Allergies Allergy Verified 12/19/21 20:50 Review of Systems ROS Statement: Those systems with pertinent positive or pertinent negative responses have been documented in the HPI. ROS Other: All systems not noted in ROS Statement are negative. Past Medical History Additional Past Medical History / Comment(s): autism, cerebral palsy, cognitive delay History of Any Multi-Drug Resistant Organisms: Unobtainable Past Surgical History: Unable to Obtain Past Psychological History: ADD/ADHD Smoking Status: Unknown if ever smoked Past Alcohol Use History: Unable to Obtain Past Drug Use History: Unable to Obtain General Exam Limitations: altered mental status General appearance: alert, in no apparent distress Head exam: Present: atraumatic, normocephalic, normal inspection Eye exam: Present: normal appearance, EOMI. Absent: scleral icterus, conjuncti hanna injection, periorbital swelling, periorbital tenderness ENT exam: Present: mucous membranes dry Neck exam: Present: normal inspection, full ROM. Absent: tenderness, meningismus, lymphadenopathy, thyromegaly Respiratory exam: Present: normal lung sounds bilaterally. Absent: respiratory distress, accessory muscle use Cardiovascular Exam: Present: tachycardia, normal heart sounds GI/Abdominal exam: Present: soft. Absent: distended, tenderness Extremities exam: Present: normal inspection, full ROM, normal capillary refill. Absent: tenderness, pedal edema Back exam: Present: normal inspection, full ROM. Absent: tenderness, CVA tenderness (R), CVA tenderness (L), rash noted Neurological exam: Present: alert Expanded Neurological exam: Present: protecting the airway Patient oriented to: Present: person (Patient is autistic, normally does not use words clearly) Cranial nerves: EOM's Intact: Normal, Gag Reflex: Normal, Tongue Deviation: Normal Motor strength exam: RUE: 5, LUE: 5, RLE: 5, LLE: 5 Eye Response: (4) open spontaneously Motor Response: (5) localizes to pain Verbal Response: (5) oriented Carey Total: 14 Psychiatric exam: Present: normal affect, normal mood Skin exam: Present: warm, dry, intact, normal color. Absent: cyanosis, diaphoretic, petechiae, pallor Course Vital Signs 12/19/21 12/19/21 12/19/21 19:36 20:35 22:40 Temperature 97.8 F 97.6 F Pulse Rate 109 H 98 Respiratory 20 18 Rate Blood Pressure 132/102 126/78 O2 Sat by Pulse 94 L 97 Oximetry Medical Decision Making - Medical Decision Making Patient presents with a 2 minute seizure today. This is his third seizure. He is on Depakote and his neurologist is weaning him off Keppra. Per caregiver patient did hit his head multiple times while seizing. Apparently this month patient had a seizure resulting in intracranial bleed therefore a CT was ordered. CT is negative for any intracranial process bleed. Electrolytes labs are unremarkable. Patient is back to normal baseline. Vital signs are stable and patient ate a peanut butter sandwich brought by caregiver. There is no evidence of trauma. Patient is moving all extremities. Case discussed with Dr. Gross and patient was given 1 g of Keppra. Caregiver was notified to contact his neurologist tomorrow to discuss plan of care. Return to the emergency room with any new or concerning symptoms. Caregiver is agreeable to this plan of care. - Lab Data Result diagrams: 12/19/21 20:33 12/19/21 20:33 Lab Results 12/19/21 12/19/21 Range/Units 20:33 20:33 WBC 7.0 (3.8-10.6) k/uL RBC 4.61 (4.30-5.90) m/uL Hgb 14.0 (13.0-17.5) gm/dL Hct 42.6 (39.0-53.0) % MCV 92.4 (80.0-100.0) fL MCH 30.4 (25.0-35.0) pg MCHC 32.9 (31.0-37.0) g/dL RDW 12.0 (11.5-15.5) % Plt Count 226 (150-450) k/uL MPV 9.6 Neutrophils % 54 % Lymphocytes % 31 % Monocytes % 6 % Eosinophils % 7 % Basophils % 1 % Neutrophils # 3.7 (1.3-7.7) k/uL Lymphocytes # 2.2 (1.0-4.8) k/uL Monocytes # 0.4 (0-1.0) k/uL Eosinophils # 0.5 (0-0.7) k/uL Basophils # 0.1 (0-0.2) k/uL Sodium 142 (137-145) mmol/L Potassium 4.4 (3.5-5.1) mmol/L Chloride 104 (98-107) mmol/L Carbon Dioxide 30 (22-30) mmol/L Anion Gap 8 mmol/L BUN 13 (9-20) mg/dL Creatinine 0.57 L (0.66-1.25) mg/dL Est GFR (CKD-EPI)AfAm >90 (>60 ml/min/1.73 sqM) Est GFR (CKD-EPI)NonAf >90 (>60 ml/min/1.73 sqM) Glucose 78 (74-99) mg/dL Calcium 9.2 (8.4-10.2) mg/dL Magnesium 2.0 (1.6-2.3) mg/dL Total Bilirubin 0.2 (0.2-1.3) mg/dL AST 28 (17-59) U/L ALT 26 (4-49) U/L Alkaline Phosphatase 74 (38-126) U/L Total Protein 7.3 (6.3-8.2) g/dL Albumin 4.1 (3.5-5.0) g/dL Valproic Acid 38.7 ug/mL Disposition Clinical Impression: Seizure Disposition: HOME SELF-CARE Condition: Good Instructions (If sedation given, give patient instructions): Recurrent Seizures in Adults (ED) Additional Instructions: Take seizure medication as prescribed and follow-up with your neurologist this week, advise your doctor of a breakthrough seizure and get recommendations for continuation of care. Return to the emergency room with any new or concerning symptoms. Is patient prescribed a controlled substance at d/c from ED?: No Referrals: Maddi Garsia MD [STAFF PHYSICIAN] - 1-2 days Time of Disposition: 22:49
[2021-12-19 20:49] LABS: Basophils # (A) 0.1 k/uL (0-0.2); Basophils % (A) 1 %; Eosinophils # (A) 0.5 k/uL (0-0.7); Eosinophils % (A) 7 %; HCT 42.6 % (39.0-53.0); Lymphocytes # (A) 2.2 k/uL (1.0-4.8); Lymphocytes % (A) 31 %; MCH 30.4 pg (25.0-35.0); MCHC 32.9 g/dL (31.0-37.0); MCV 92.4 fL (80.0-100.0); Mean Platelet Volume 9.6; Monocytes # (A) 0.4 k/uL (0-1.0); Monocytes % (A) 6 %; Neutrophils # (A) 3.7 k/uL (1.3-7.7); Neutrophils % (A) 54 %; Platelet Count 226 k/uL (150-450); RBC 4.61 m/uL (4.30-5.90)
[2021-12-19 20:59] LABS: ALT 26 U/L (4-49); AST 28 U/L (17-59); African American GFR (CKD) >90 (>60 ml/min/1.73 sqM); Albumin 4.1 g/dL (3.5-5.0); Alkaline Phosphatase 74 U/L (38-126); Anion Gap 8 mmol/L; Blood Urea Nitrogen 13 mg/dL (9-20); Calcium 9.2 mg/dL (8.4-10.2); Carbon Dioxide 30 mmol/L (22-30); Chloride 104 mmol/L (98-107); Glucose 78 mg/dL (74-99); Non-African American GFR(CKD) >90 (>60 ml/min/1.73 sqM); Potassium 4.4 mmol/L (3.5-5.1); Sodium 142 mmol/L (137-145); Total Bilirubin 0.2 mg/dL (0.2-1.3); Total Protein 7.3 g/dL (6.3-8.2)
[2021-12-19 21:03] LABS: Valproic Acid (Depakene) 38.7 ug/mL
[2021-12-19] MEDS ORDERED: LORazepam 2 MG/ML INJ IV STA (21:24)
[2021-12-19] MEDS ORDERED: levETIRAcetam IV 1,000 MG in SALINE 1 100ML.BAG IVPB STA (22:19)
--- NOTE | 2021-12-19 22:37 | CT ---
EXAMINATION TYPE: CT brain wo con DATE OF EXAM: 12/19/2021 COMPARISON: 12/08/2021 HISTORY: AMS and Seizure CT DLP: 1704.2 mGycm Automated exposure control for dose reduction was used. There is some cerebral cortical atrophy. There is slight enlargement of the ventricles. There is no m ass effect or midline shift. There is no sign of intracranial hemorrhage. Calvarium is intact. IMPRESSION: Cerebral atrophy and mild hydrocephalus. No change compared to old exam.
[2021-12-19 22:46] VITALS: BP 126/78; PULSE 98; RESP 18; TEMP 97.6
== END 2021-12-19 23:15 | disposition home or self-care (01) ==
LOC: SUPCPDRO 19:33 → EC 19:33
DX: R56.9 Unspecified convulsions (principal)
CPT/HCPCS: 36415; 80164; 80053; 83735; 85025; 70450; 96374; 96375; 96361; 99285; J2060; J1953

== ENCOUNTER 2022-04-03 19:54 | Emergency (ER) | payer MEDICARE, OTHER ==
[2022-04-03 20:15] VITALS: RESP 16; TEMP 98.1
[2022-04-03 21:07] LABS: Appearance,Urine Clear (Clear); Bilirubin,Urine Negative (Negative); Blood,Urine Negative (Negative); Color,Urine Yellow; Glucose,Urine (UA) Negative (Negative); Ketones,Urine Negative (Negative); Leukocyte Esterase,Urine Negative (Negative); Nitrite,Urine Negative (Negative); Protein,Urine Trace (Negative); Specific Gravity,Urine 1.023 (1.001-1.035); Urobilinogen,Urine <2.0 mg/dL (<2.0)
--- NOTE | 2022-04-03 21:14 | ED ---
General Adult HPI <Axel Sosa - Last Filed: 04/03/22 22:55> - General Source: EMS, RN notes reviewed Mode of arrival: EMS Limitations: no limitations <Ml Luna - Last Filed: 04/06/22 06:40> - General Chief complaint: Urogenital Stated complaint: Possible UTI Time Seen by Provider: 04/03/22 20:32 - History of Present Illness Initial comments: 21-year-old male presents to the emergency department via EMS from [facility] for evaluation of possible UTI. Per EMS, staff reports patient is having increased episodes of aggression and is restless. States he has been observed pulling at his penis so they are concerned about urinary tract infection. Patient is nonverbal. He is able to follow simple, basic commands and is cooperative upon assessment. He does not display any evidence of discomfort. No known fever, sick exposures, or appetite changes. (Ml Luna) - Related Data Home Medications Medication Instructions Recorded Confirmed Acetaminophen Oral Susp [Tylenol] 650 mg PO Q4H PRN 12/08/21 04/03/22 Fludrocortisone [Florinef] 0.1 mg PO TID@0700,1500,199912/08/21 04/03/22 LORazepam [Ativan] 0.5 mg PO BID PRN 12/19/21 04/03/22 cloNIDine HCL [Catapres] 0.1 mg PO BID@0700,199912/19/21 04/03/22 hydrOXYzine HCL [Atarax] 25 mg PO TID@0700,1200,1700 12/19/21 04/03/22 Famotidine [Pepcid] 20 mg PO BID@0700,199904/03/22 04/03/22 Melatonin 5 mg PO HS@199904/03/22 04/03/22 Valproic Acid Oral Soln [Depakene 750 mg PO BID@0700,199904/03/22 04/03/22 Syrup] Ziprasidone [Geodon] 80 mg PO BID@0700,199904/03/22 04/03/22 Allergies Allergy/AdvReac Type Severity Reaction Status Date / Time No Known Allergies Allergy Verified 04/03/22 22:11 Review of Systems ROS Other: All systems not noted in ROS Statement are negative. <Axel Sosa - Last Filed: 04/03/22 22:55> ROS Other: All systems not noted in ROS Statement are negative. <Ml Luna - Last Filed: 04/06/22 06:40> ROS Statement: Those systems with pertinent positive or pertinent negative responses have been documented in the HPI. Past Medical History Additional Past Medical History / Comment(s): autism, cerebral palsy, cognitive delay History of Any Multi-Drug Resistant Organisms: Unobtainable Past Surgical History: Unable to Obtain Past Psychological History: ADD/ADHD Smoking Status: Unknown if ever smoked Past Alcohol Use History: Unable to Obtain Past Drug Use History: Unable to Obtain <Ml Luna - Last Filed: 04/06/22 06:40> General Exam General appearance: alert, in no apparent distress, other (Well-developed, well- nourished male in no acute distress. He is nonverbal. Initial temperature 98.1, pulse 78, respirations 16, blood pressure 121/60, pulse ox 98% on room air.) Head exam: Present: normal inspection Eye exam: Present: normal appearance, PERRL. Absent: scleral icterus, conjunctival injection, periorbital swelling ENT exam: Present: mucous membranes moist Neck exam: Present: normal inspection, full ROM. Absent: lymphadenopathy Respiratory exam: Present: normal lung sounds bilaterally. Absent: respiratory distress, wheezes, rales, rhonchi, stridor, chest wall tenderness Cardiovascular Exam: Present: regular rate, normal rhythm, normal heart sounds. Absent: systolic murmur, diastolic murmur, rubs, gallop, clicks GI/Abdominal exam: Present: soft, normal bowel sounds. Absent: distended, tenderness, guarding, rebound, rigid exam: Present: normal inspection. Absent: testicular tenderness, urethral discharge, scrotal swelling External exam: Present: normal external exam. Absent: erythema, swelling, lesions Extremities exam: Present: normal inspection, normal capillary refill. Absent: pedal edema Back exam: Absent: CVA tenderness (R), CVA tenderness (L) Neurological exam: Present: alert Psychiatric exam: Present: flat affect Skin exam: Present: warm, dry, intact, normal color. Absent: rash, petechiae, pallor <Ml Luna - Last Filed: 04/06/22 06:40> Course <Ml Luna - Last Filed: 04/06/22 06:40> Vital Signs 04/03/22 04/03/22 20:05 23:00 Temperature 98.1 F Pulse Rate 78 74 Respiratory 16 Rate Blood Pressure 121/60 118/67 O2 Sat by Pulse 98 Oximetry - Reevaluation(s) Reevaluation #1: 04/03/22 21:00 Patient was straight cathed to obtain urine specimen as he is incontinent. He was cooperative with this procedure and demonstrated no aggression. 04/03/22 22:00 Patient continues to rest comfortably with no episodes of aggression. Urinalysis is negative. Patient's care is discussed with my attending, Dr. Sosa. Laboratory studies will be obtained. (Ml Luna) Medical Decision Making - Lab Data Result diagrams: 04/03/22 22:07 04/03/22 22:07 <Axel Sosa - Last Filed: 04/03/22 22:55> - Lab Data Result diagrams: 04/03/22 22:07 04/03/22 22:07 <Ml Luna - Last Filed: 04/06/22 06:40> - Medical Decision Making 21-year-old male with a history of cognitive impairment presents to the emergency department from [facility] for evaluation of increased episodes of aggression and concern for UTI. Upon exam, patient is well-appearing resting comfortably and in no acute distress. He is nonverbal. Physical exam findings are normal for his baseline. Urinalysis obtained via straight cath. Laboratory studies were reviewed and are unremarkable. No episodes of aggression demonstrated while present in the emergency department. He will be discharged home with instructions to staff to follow up with PCP as needed. Return parameters noted in paperwork. Attending: Ian. (Ml Luna) - Lab Data Lab Results 04/03/22 04/03/22 04/03/22 Range/Units 20:55 22:07 22:07 WBC 8.0 (3.8-10.6) k/uL RBC 4.74 (4.30-5.90) m/uL Hgb 13.7 (13.0-17.5) gm/dL Hct 41.3 (39.0-53.0) % MCV 87.2 (80.0-100.0) fL MCH 29.0 (25.0-35.0) pg MCHC 33.2 (31.0-37.0) g/dL RDW 13.2 (11.5-15.5) % Plt Count 180 (150-450) k/uL MPV 7.9 Neutrophils % 58 % Lymphocytes % 25 % Monocytes % 8 % Eosinophils % 8 % Basophils % 1 % Neutrophils # 4.6 (1.3-7.7) k/uL Lymphocytes # 2.0 (1.0-4.8) k/uL Monocytes # 0.6 (0-1.0) k/uL Eosinophils # 0.6 (0-0.7) k/uL Basophils # 0.1 (0-0.2) k/uL Sodium 139 (137-145) mmol/L Potassium 3.9 (3.5-5.1) mmol/L Chloride 107 (98-107) mmol/L Carbon Dioxide 27 (22-30) mmol/L Anion Gap 5 mmol/L BUN 12 (9-20) mg/dL Creatinine 0.63 L (0.66-1.25) mg/dL Est GFR (CKD-EPI)AfAm >90 (>60 ml/min/1.73 sqM) Est GFR (CKD-EPI)NonAf >90 (>60 ml/min/1.73 sqM) Glucose 108 H (74-99) mg/dL Calcium 9.1 (8.4-10.2) mg/dL Total Bilirubin <0.1 L (0.2-1.3) mg/dL AST 27 (17-59) U/L ALT 18 (4-49) U/L Alkaline Phosphatase 85 (38-126) U/L Total Protein 6.5 (6.3-8.2) g/dL Albumin 3.7 (3.5-5.0) g/dL Urine Color Yellow Urine Appearance Clear (Clear) Urine pH 8.0 (5.0-8.0) Ur Specific [place] 1.023 (1.001-1.035) Urine Protein Trace H (Negative) Urine Glucose (UA) Negative (Negative) Urine Ketones Negative (Negative) Urine Blood Negative (Negative) Urine Nitrite Negative (Negative) Urine Bilirubin Negative (Negative) Urine Urobilinogen <2.0 (<2.0) mg/dL Ur Leukocyte Esterase Negative (Negative) Disposition <Axel Sosa - Last Filed: 04/03/22 22:55> Is patient prescribed a controlled substance at d/c from ED?: No Time of Disposition: 22:50 <Ml Luna - Last Filed: 04/06/22 06:40> Clinical Impression: Feared condition not demonstrated Disposition: HOME SELF-CARE Condition: Stable Instructions (If sedation given, give patient instructions): Normal Exam (ED) Additional Instructions: Your laboratory studies were negative. There is no urine tract infection. Continue home medications as prescribed. Follow up with the PCP for a recheck as needed. Return to the emergency department with any new, worsening, or concerning symptoms. Referrals: Lenny Colindres MD [Primary Care Provider] - 1-2 days
[2022-04-03 22:29] LABS: Basophils # (A) 0.1 k/uL (0-0.2); Basophils % (A) 1 %; Eosinophils # (A) 0.6 k/uL (0-0.7); Eosinophils % (A) 8 %; HCT 41.3 % (39.0-53.0); HGB 13.7 gm/dL (13.0-17.5); Lymphocytes % (A) 25 %; MCHC 33.2 g/dL (31.0-37.0); MCV 87.2 fL (80.0-100.0); Mean Platelet Volume 7.9; Monocytes # (A) 0.6 k/uL (0-1.0); Monocytes % (A) 8 %; Neutrophils # (A) 4.6 k/uL (1.3-7.7); Neutrophils % (A) 58 %; Platelet Count 180 k/uL (150-450); RBC 4.74 m/uL (4.30-5.90); RDW 13.2 % (11.5-15.5)
[2022-04-03 22:38] LABS: ALT 18 U/L (4-49); AST 27 U/L (17-59); African American GFR (CKD) >90 (>60 ml/min/1.73 sqM); Albumin 3.7 g/dL (3.5-5.0); Alkaline Phosphatase 85 U/L (38-126); Anion Gap 5 mmol/L; Blood Urea Nitrogen 12 mg/dL (9-20); Calcium 9.1 mg/dL (8.4-10.2); Carbon Dioxide 27 mmol/L (22-30); Chloride 107 mmol/L (98-107); Glucose 108 mg/dL (74-99); Non-African American GFR(CKD) >90 (>60 ml/min/1.73 sqM); Potassium 3.9 mmol/L (3.5-5.1); Sodium 139 mmol/L (137-145); Total Bilirubin <0.1 mg/dL (0.2-1.3); Total Protein 6.5 g/dL (6.3-8.2)
[2022-04-03 23:24] VITALS: BP 118/67; PULSE 74
== END 2022-04-03 23:24 | disposition home or self-care (01) ==
LOC: EC 19:54
DX: Z71.1 Person with feared health complaint in whom no diagnosis is made (principal)
CPT/HCPCS: 36415; 80053; 81003; 85025; 99283

== ENCOUNTER 2022-04-12 14:38 | Emergency (ER) | payer MEDICARE, OTHER ==
[2022-04-12 14:54] VITALS: BP 110/65; PULSE 88; RESP 22; TEMP 98.2
[2022-04-12] MEDS ORDERED: LIDOCAINE/EPINEPHR/TETRACAINE 5 ML BOTTLE TOPICAL ONE (15:38)
--- NOTE | 2022-04-12 16:41 | ED ---
Wound/Laceration HPI - General Chief Complaint: Wound/Laceration Stated Complaint: punctured scrotum Time Seen by Provider: 04/12/22 15:21 Source: Caregiver Mode of arrival: ambulatory Limitations: language barrier - History of Present Illness Initial Comments: This 21-year-old autistic male presents with group sales representative for a laceration to his scrotum. The group sales representative is unsure how this may have happened. He may have scratched himself. He apparently plays with his genitals very regularly. This likely just occurred shortly prior to arrival. There is no other complaints or modifying factors. The patient is noncommunicative and unable to give any history himself. - Related Data Home Medications Medication Instructions Recorded Confirmed Acetaminophen Oral Susp [Tylenol] 650 mg PO Q4H PRN 12/08/21 04/03/22 Fludrocortisone [Florinef] 0.1 mg PO TID@0700,1500,199912/08/21 04/03/22 LORazepam [Ativan] 0.5 mg PO BID PRN 12/19/21 04/03/22 cloNIDine HCL [Catapres] 0.1 mg PO BID@0700,199912/19/21 04/03/22 hydrOXYzine HCL [Atarax] 25 mg PO TID@0700,1200,1700 12/19/21 04/03/22 Famotidine [Pepcid] 20 mg PO BID@0700,199904/03/22 04/03/22 Melatonin 5 mg PO HS@199904/03/22 04/03/22 Valproic Acid Oral Soln [Depakene 750 mg PO BID@0700,199904/03/22 04/03/22 Syrup] Ziprasidone [Geodon] 80 mg PO BID@0700,199904/03/22 04/03/22 Allergies Allergy/AdvReac Type Severity Reaction Status Date / Time No Known Allergies Allergy Verified 04/03/22 22:11 Review of Systems ROS Statement: Those systems with pertinent positive or pertinent negative responses have been documented in the HPI. ROS Other: All systems not noted in ROS Statement are negative. Past Medical History Additional Past Medical History / Comment(s): autism, cerebral palsy, cognitive delay History of Any Multi-Drug Resistant Organisms: Unobtainable Past Surgical History: Unable to Obtain Past Psychological History: ADD/ADHD Smoking Status: Unknown if ever smoked Past Alcohol Use History: Unable to Obtain Past Drug Use History: Unable to Obtain General Exam Limitations: language barrier exam: Present: other (There is a 2 cm superficial laceration noted to the inferior aspect of the left scrotum. There is no deep structures or foreign bodies identified.) Neurological exam: Present: other (Patient is significantly mentally handicapped.) Psychiatric exam: Present: other (Patient is significantly mentally handicapped.) Course Vital Signs 04/12/22 14:50 Temperature 98.2 F Pulse Rate 88 Respiratory 22 Rate Blood Pressure 110/65 O2 Sat by Pulse 98 Oximetry Medical Decision Making - Medical Decision Making The patient was seen and examined. LET is applied to the scrotum. This does cause partial anesthesia but not complete and therefore lidocaine plain appro ximately 2 mL was injected to the area. Excellent anesthesia is identified. The wound is thoroughly cleansed. It is closed with 3 simple interrupted 5-0 Rapide Vicryl absorbable sutures. No complications were noted. This felt as though he stable for discharge. Wound care instructions were discussed with the group sales representative. Return parameters are discussed. These are absorbable sutures so he does not need to return for removal. Disposition Clinical Impression: Laceration Disposition: HOME SELF-CARE Condition: Good Instructions (If sedation given, give patient instructions): Laceration (ED) Is patient prescribed a controlled substance at d/c from ED?: No Referrals: Luis Fernandez NPC [Primary Care Provider] - 04/18/22 Time of Disposition: 16:41
[2022-04-12] MEDS ORDERED: LIDOCAINE 1% INJ 10MG/ML (20 ML MDV) SQ ONE (17:04)
== END 2022-04-12 16:48 | disposition home or self-care (01) ==
LOC: EC 14:38
DX: S31.31XA Laceration without foreign body of scrotum and testes, initial encounter (principal); X58.XXXA Exposure to other specified factors, initial encounter
CPT/HCPCS: 99283; 12001; J2001

== ENCOUNTER 2022-04-23 08:54 | Emergency (ER) | payer MEDICARE, OTHER ==
[2022-04-23 10:20] LABS: Glucose,Whole Blood 97 mg/dL (70-110)
[2022-04-23] MEDS ORDERED: LORazepam 2 MG/ML INJ IV STA ×3 (10:32→20:23)
[2022-04-23 10:33] LABS: Basophils % (A) 1 %; Eosinophils # (A) 0.3 k/uL (0-0.7); Eosinophils % (A) 5 %; HGB 14.1 gm/dL (13.0-17.5); Lymphocytes # (A) 1.5 k/uL (1.0-4.8); Lymphocytes % (A) 24 %; MCHC 33.7 g/dL (31.0-37.0); MCV 89.1 fL (80.0-100.0); Mean Platelet Volume 9.1; Monocytes # (A) 0.4 k/uL (0-1.0); Monocytes % (A) 6 %; Neutrophils # (A) 3.9 k/uL (1.3-7.7); Neutrophils % (A) 63 %; Platelet Count 206 k/uL (150-450); RBC 4.72 m/uL (4.30-5.90); RDW 13.5 % (11.5-15.5); WBC 6.3 k/uL (3.8-10.6)
[2022-04-23 10:48] LABS: ALT 15 U/L (4-49); AST 27 U/L (17-59); African American GFR (CKD) >90 (>60 ml/min/1.73 sqM); Albumin 3.7 g/dL (3.5-5.0); Alkaline Phosphatase 69 U/L (38-126); Anion Gap 9 mmol/L; Blood Urea Nitrogen 14 mg/dL (9-20); Calcium 9.4 mg/dL (8.4-10.2); Carbon Dioxide 26 mmol/L (22-30); Chloride 106 mmol/L (98-107); Glucose 100 mg/dL (74-99); Non-African American GFR(CKD) >90 (>60 ml/min/1.73 sqM); Potassium 4.1 mmol/L (3.5-5.1); Sodium 141 mmol/L (137-145); Total Bilirubin 0.3 mg/dL (0.2-1.3); Total Protein 6.4 g/dL (6.3-8.2)
[2022-04-23 10:53] LABS: Valproic Acid (Depakene) 62.3 ug/mL
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
[2022-04-23] MEDS ORDERED: diphenhydrAMINE 50 MG/ML 1 ML VIAL IVP STA (13:48)
[2022-04-23] MEDS ORDERED: ACETAMINOPHEN ORAL SUSP 160 MG/5 ML CUP PO PRN (16:06)
[2022-04-23] MEDS ORDERED: ZIPRASIDONE 20 MG VIAL IM STA ×2 (16:07→20:38)
[2022-04-23] MEDS: ZIPRASIDONE 80 MG CAP PO SCH ×2 (20:37→23:48)
[2022-04-23] MEDS: MELATONIN 5 MG TABLET PO SCH (20:55)
[2022-04-23] MEDS: FAMOTIDINE 20 MG TAB PO SCH (21:01)
[2022-04-23] MEDS: VALPROIC ACID ORAL SOLN 250 MG/5 ML CUP PO SCH (21:05)
[2022-04-23] MEDS: FLUDROCORTISONE 0.1 MG TAB PO SCH (21:11)
[2022-04-23] MEDS: LACTULOSE 20 GM/30 ML CUP PO SCH (21:12)
[2022-04-24] MEDS ORDERED: LORazepam 2 MG/ML INJ IV STA ×2 (03:41→12:40)
[2022-04-24] MEDS ORDERED: ZIPRASIDONE 20 MG VIAL IM STA ×2 (03:41→18:27)
[2022-04-24] MEDS: MELATONIN 5 MG TABLET PO SCH ×2 (03:58→22:48)
[2022-04-24] MEDS: DOXEPIN 10 MG CAP PO SCH ×2 (03:59→22:48)
[2022-04-24] MEDS: cloNIDine HCL 0.1 MG TAB PO SCH ×3 (04:00→22:46)
[2022-04-24] MEDS: FLUDROCORTISONE 0.1 MG TAB PO SCH ×3 (07:41→22:47)
[2022-04-24] MEDS: LACTULOSE 20 GM/30 ML CUP PO SCH ×2 (07:41→22:49)
[2022-04-24] MEDS: FAMOTIDINE 20 MG TAB PO SCH ×2 (07:42→22:47)
[2022-04-24] MEDS: VALPROIC ACID ORAL SOLN 250 MG/5 ML CUP PO SCH ×2 (08:22→22:49)
[2022-04-24] MEDS: ZIPRASIDONE 80 MG CAP PO SCH ×2 (08:27→22:48)
[2022-04-24 11:57] LABS: Amphetamine Screen,Urine Not Detected (NotDetected); Barbiturate Screen,Urine Not Detected (NotDetected); Benzodiazepines Screen,Urine Detected (NotDetected); Cocaine Screen,Urine Not Detected (NotDetected); Methadone Screen, Urine Not Detected (NotDetected); Opiate Screen,Urine Not Detected (NotDetected); Oxycodone Screen, Urine Not Detected (NotDetected); Phencyclidine Screen,Urine Not Detected (NotDetected); Tricyclic Antidepressant,Urine Not Detected (NotDetected); Urn Cannabinoid Scrn Not Detected (NotDetected)
[2022-04-24 14:37] LABS: Appearance,Urine Clear (Clear); Bilirubin,Urine Negative (Negative); Blood,Urine Negative (Negative); Color,Urine Light Yellow; Glucose,Urine (UA) Negative (Negative); Ketones,Urine Trace (Negative); Leukocyte Esterase,Urine Negative (Negative); Nitrite,Urine Negative (Negative); Protein,Urine Negative (Negative); Specific Gravity,Urine 1.009 (1.001-1.035); Urobilinogen,Urine <2.0 mg/dL (<2.0)
--- NOTE | 2022-04-24 19:40 | CT ---
EXAMINATION TYPE: CT brain wo con CT DLP: 1178.4 mGycm, Automated exposure control for dose reduction was used. DATE OF EXAM: 04/24/2022 7:34 PM COMPARISON: 12/19/2021. CLINICAL INDICATION:Male, 21 years old with history of altered mental status, TECHNIQUE: Brain: Axial CT images of the brain were obtained with coronal and sagittal reformats created and rev iewed. Contrast used: None. Oral contrast used: None. FINDINGS: Brain: Extra-axial spaces: No abnormal extra-axial fluid collections. Ventricular system: Within normal limits Cerebral parenchyma: No acute intraparenchymal hemorrhage or mass effect. The blair-white junction is well differentiated. Cerebellum: Unremarkable. Mass effect: No evidence of midline shift. Intracranial vasculature: unremarkable Soft tissues: Normal. Calvarium/osseous structures: No depressed skull fracture. Paranasal sinuses and mastoid air cells: Mild scattered paranasal sinus disease. Visualized orbits: Orbital contents are intact. IMPRESSION: No acute intracranial process.
[2022-04-25] MEDS ORDERED: ZIPRASIDONE 20 MG VIAL IM STA (00:41)
[2022-04-25] MEDS: VALPROIC ACID ORAL SOLN 250 MG/5 ML CUP PO SCH ×2 (07:35→21:03)
[2022-04-25] MEDS: ZIPRASIDONE 80 MG CAP PO SCH ×2 (07:35→20:41)
[2022-04-25] MEDS: LACTULOSE 20 GM/30 ML CUP PO SCH ×2 (07:35→20:41)
[2022-04-25] MEDS: FLUDROCORTISONE 0.1 MG TAB PO SCH ×3 (07:36→20:37)
[2022-04-25] MEDS: FAMOTIDINE 20 MG TAB PO SCH ×2 (07:36→20:39)
[2022-04-25] MEDS: cloNIDine HCL 0.1 MG TAB PO SCH ×2 (07:36→20:37)
[2022-04-25] MEDS: DOXEPIN 10 MG CAP PO SCH (20:37)
[2022-04-25] MEDS: MELATONIN 5 MG TABLET PO SCH (20:40)
[2022-04-26] MEDS: cloNIDine HCL 0.1 MG TAB PO SCH ×3 (09:10→21:35)
[2022-04-26] MEDS: LACTULOSE 20 GM/30 ML CUP PO SCH ×3 (09:10→21:38)
[2022-04-26] MEDS: ZIPRASIDONE 80 MG CAP PO SCH ×2 (09:10→21:36)
[2022-04-26] MEDS: FLUDROCORTISONE 0.1 MG TAB PO SCH ×4 (09:11→21:35)
[2022-04-26] MEDS: FAMOTIDINE 20 MG TAB PO SCH ×3 (09:11→21:38)
[2022-04-26] MEDS: VALPROIC ACID ORAL SOLN 250 MG/5 ML CUP PO SCH ×2 (09:11→21:38)
[2022-04-26] MEDS: MELATONIN 5 MG TABLET PO SCH (21:37)
[2022-04-27] MEDS: cloNIDine HCL 0.1 MG TAB PO SCH ×2 (08:14→08:15)
[2022-04-27] MEDS: VALPROIC ACID ORAL SOLN 250 MG/5 ML CUP PO SCH ×2 (08:14→21:19)
[2022-04-27] MEDS: LACTULOSE 20 GM/30 ML CUP PO SCH ×2 (08:15→21:19)
[2022-04-27] MEDS: FLUDROCORTISONE 0.1 MG TAB PO SCH ×3 (08:15→21:21)
[2022-04-27] MEDS: FAMOTIDINE 20 MG TAB PO SCH ×2 (08:15→21:22)
[2022-04-27] MEDS: ZIPRASIDONE 80 MG CAP PO SCH ×2 (08:15→21:21)
[2022-04-27] MEDS: DOXEPIN 10 MG CAP PO SCH ×2 (09:57→21:21)
[2022-04-27] MEDS: MELATONIN 5 MG TABLET PO SCH (21:21)
[2022-04-28] MEDS: FAMOTIDINE 20 MG TAB PO SCH ×2 (08:07→20:21)
[2022-04-28] MEDS: FLUDROCORTISONE 0.1 MG TAB PO SCH ×3 (08:07→20:21)
[2022-04-28] MEDS: cloNIDine HCL 0.1 MG TAB PO SCH (08:07)
[2022-04-28] MEDS: ZIPRASIDONE 80 MG CAP PO SCH ×2 (08:08→20:26)
[2022-04-28] MEDS: VALPROIC ACID ORAL SOLN 250 MG/5 ML CUP PO SCH ×2 (08:08→20:23)
[2022-04-28] MEDS: LACTULOSE 20 GM/30 ML CUP PO SCH ×2 (08:08→20:21)
[2022-04-28] MEDS ORDERED: traZODone HCL 50 MG TAB PO ONE (12:20)
[2022-04-28] MEDS: DOXEPIN 10 MG CAP PO SCH (20:21)
[2022-04-28] MEDS: MELATONIN 5 MG TABLET PO SCH (20:23)
[2022-04-29] MEDS: cloNIDine HCL 0.1 MG TAB PO SCH ×2 (07:21→21:53)
[2022-04-29] MEDS: FAMOTIDINE 20 MG TAB PO SCH ×2 (07:21→21:53)
[2022-04-29] MEDS: FLUDROCORTISONE 0.1 MG TAB PO SCH ×3 (07:22→21:53)
[2022-04-29] MEDS: LACTULOSE 20 GM/30 ML CUP PO SCH ×2 (07:22→21:54)
[2022-04-29] MEDS: VALPROIC ACID ORAL SOLN 250 MG/5 ML CUP PO SCH ×2 (07:37→22:33)
[2022-04-29] MEDS: ZIPRASIDONE 80 MG CAP PO SCH ×2 (07:38→22:33)
[2022-04-29] MEDS ORDERED: traZODone HCL 50 MG TAB PO ONE (09:31)
[2022-04-29] MEDS ORDERED: LORazepam 2 MG/ML INJ IM STA (18:14)
[2022-04-29] MEDS: MELATONIN 5 MG TABLET PO SCH (21:53)
[2022-04-29] MEDS: DOXEPIN 10 MG CAP PO SCH (22:33)
[2022-04-30] MEDS: FAMOTIDINE 20 MG TAB PO SCH ×2 (07:29→07:30)
[2022-04-30] MEDS: VALPROIC ACID ORAL SOLN 250 MG/5 ML CUP PO SCH ×2 (07:30→22:37)
[2022-04-30] MEDS: cloNIDine HCL 0.1 MG TAB PO SCH ×2 (07:30→22:39)
[2022-04-30] MEDS: FLUDROCORTISONE 0.1 MG TAB PO SCH ×3 (07:30→22:39)
[2022-04-30] MEDS: LACTULOSE 20 GM/30 ML CUP PO SCH ×2 (07:30→22:38)
[2022-04-30] MEDS: ZIPRASIDONE 80 MG CAP PO SCH (07:30)
[2022-04-30] MEDS ORDERED: OLANZapine 10 MG VIAL IM PRN (12:52)
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
[2022-04-30] MEDS: OLANZapine 5 MG TAB PO PRN (15:05)
[2022-04-30] MEDS ORDERED: LORazepam 2 MG/ML INJ IM STA (20:33)
[2022-04-30] MEDS ORDERED: PALIPERIDONE 3 MG TAB.ER.24 PO SCH (21:00)
[2022-04-30] MEDS: DOXEPIN 10 MG CAP PO SCH ×2 (22:38→22:39)
[2022-04-30] MEDS: MELATONIN 5 MG TABLET PO SCH (22:39)
[2022-04-30] MEDS: ZIPRASIDONE 40 MG CAP PO SCH (22:40)
[2022-05-01] MEDS: cloNIDine HCL 0.1 MG TAB PO SCH (10:07)
[2022-05-01] MEDS: FAMOTIDINE 20 MG TAB PO SCH ×2 (10:07→20:05)
[2022-05-01] MEDS: FLUDROCORTISONE 0.1 MG TAB PO SCH ×3 (10:07→20:05)
[2022-05-01] MEDS: LACTULOSE 20 GM/30 ML CUP PO SCH ×2 (10:07→20:05)
[2022-05-01] MEDS: ZIPRASIDONE 40 MG CAP PO SCH (11:22)
[2022-05-01] MEDS: VALPROIC ACID ORAL SOLN 250 MG/5 ML CUP PO SCH ×2 (11:22→20:04)
[2022-05-01] MEDS: OLANZapine 5 MG TAB PO PRN (14:33)
--- NOTE | 2022-05-01 14:36 | P.PN ---
Progress Note - Text Progress Note Date: 05/01/22 Interval History: Patient was seen today for psychiatric follow-up regarding patient's psychiatric condition. The patients nurse claims that patient is sleeping on and off throughout the day waking up at times and pacing. He received Zyprexa prns yesterday both IM and by mouth and also extra Ativan IM last night. Patient was seen laying on the bed and continues to be in a position. He opened his eyes briefly when chief writer attempted to speak with him and patient did not answer any questions and closed his eyes shortly after. Mental Status Exam: General Appearance: Patient appears to be in a position, laying in bed, I woke briefly, not following any commands. Fair grooming and hygiene, wearing hospital gown with poor eye contact. Behavior: She is calmly laying in the bed. Speech: Nonverbal Mood/Affect: Unable to assess Suicidality/Homicidality: Unable to assess Perceptions: Unable to assess. Not responding to internal stimuli. Though content/process: Unable to assess. He is nonverbal. Memory and concentration: Unable to assess Judgment and insight: Chronically limited IMPRESSIONS: Developmental delay History of cerebral palsy PLAN: -At this time patient DOES meet criteria for inpatient psychiatric admission to a developmental delay psych unit. Please continue on with trying to find patient a bed. -Patient DOES NOT have decision making capacity. -Would recommend the following medication changes/additions: increase invega 6 mg and decrease geodon today. increase Sinequan 25 mg daily at bedtime for sleep/mood, Depakene 750 mg twice a day for mood stabilization/aggression. continue Melatonin 5 mg daily at bedtime for sleep]. Increase zyprexa 7.5 mg tid IM and PO option prn for severe agitation. -Continue 1:1 sitter for safety -Communicated plan to patient's nurse -Will continue to follow along -Please contact with any questions.
[2022-05-01] MEDS: OLANZapine 7.5 MG TAB PO PRN (18:49)
[2022-05-01] MEDS: PALIPERIDONE 6 MG TAB.ER.24 PO SCH (20:04)
[2022-05-01] MEDS: ZIPRASIDONE 20 MG CAP PO SCH (20:04)
[2022-05-01] MEDS: OLANZapine 10 MG VIAL IM PRN (20:48)
[2022-05-02] MEDS ORDERED: diphenhydrAMINE 50 MG/ML 1 ML VIAL IM STA ×2 (04:59→23:15)
[2022-05-02] MEDS ORDERED: ZIPRASIDONE 20 MG VIAL IM STA ×2 (04:59→23:15)
[2022-05-02] MEDS: LACTULOSE 20 GM/30 ML CUP PO SCH ×2 (08:11→21:55)
[2022-05-02] MEDS: FAMOTIDINE 20 MG TAB PO SCH ×2 (08:45→21:54)
[2022-05-02] MEDS: FLUDROCORTISONE 0.1 MG TAB PO SCH ×3 (08:45→21:55)
[2022-05-02] MEDS: ZIPRASIDONE 20 MG CAP PO SCH ×2 (08:46→21:55)
[2022-05-02] MEDS: cloNIDine HCL 0.1 MG TAB PO SCH ×2 (08:46→21:54)
[2022-05-02] MEDS: VALPROIC ACID ORAL SOLN 250 MG/5 ML CUP PO SCH ×2 (09:04→21:55)
[2022-05-02] MEDS ORDERED: PALIPERIDONE 3 MG TAB.ER.24 PO STA (14:31)
[2022-05-02] MEDS ORDERED: diphenhydrAMINE 50 MG CAP PO PRN (14:32)
--- NOTE | 2022-05-02 14:45 | P.PN ---
Progress Note - Text Progress Note Date: 05/02/22 Interval History: Patient was seen today for psychiatric follow-up regarding patient's psychiatric condition. The patients nurse claims that patient is sleeping on and off, and apparently patient required several when necessary's once again for sleep. Patient was seen pacing around his room looking at his tablet looked up at bid writer when bid writer called his name however patient looks back down and continue walking around and did not answer any questions. He has been taking his medications. Mental Status Exam: General Appearance: Patient appears to be in a position, laying in bed and also walking around his room with his tablet, not following any commands. Fair grooming and hygiene, wearing hospital gown with poor eye contact. Behavior: Walking around his room. Speech: Nonverbal Mood/Affect: Unable to assess Suicidality/Homicidality: Unable to assess Perceptions: Unable to assess. Not responding to internal stimuli. Though content/process: Unable to assess. He is nonverbal. Memory and concentration: Unable to assess Judgment and insight: Chronically limited IMPRESSIONS: Developmental delay History of cerebral palsy PLAN: -At this time patient DOES meet criteria for inpatient psychiatric admission to a developmental delay psych unit. Please continue on with trying to find patient a bed. -Patient DOES NOT have decision making capacity. -Would recommend the following medication changes/additions: increase invega 6 mg qhs + 3 mg daily. increase doxepin to 25 mg daily at bedtime for sleep/mood, Depakene 750 mg twice a day for mood stabilization/aggression. increase Melatonin 10 mg daily at bedtime for sleep]. zyprexa 7.5 mg tid IM and PO option prn for severe agitation. added benadryl 50 mg qhs prn for insomnia. Reference Test Clerk is not able to put in the orders into the EMR and asked nurse to do this under my name. -Continue 1:1 sitter for safety -Communicated plan to patient's nurse -Will continue to follow along -Please contact with any questions.
[2022-05-02] MEDS: OLANZapine 10 MG VIAL IM PRN (17:25)
[2022-05-02] MEDS ORDERED: MELATONIN 5 MG TABLET PO SCH (21:00)
[2022-05-02] MEDS: PALIPERIDONE 6 MG TAB.ER.24 PO SCH (21:55)
[2022-05-02] MEDS: DOXEPIN 25 MG CAP PO SCH (21:55)
[2022-05-03] MEDS ORDERED: PALIPERIDONE 3 MG TAB.ER.24 PO SCH (09:00)
[2022-05-03] MEDS: FLUDROCORTISONE 0.1 MG TAB PO SCH ×3 (10:20→20:50)
[2022-05-03] MEDS: cloNIDine HCL 0.1 MG TAB PO SCH ×2 (10:20→20:50)
[2022-05-03] MEDS: FAMOTIDINE 20 MG TAB PO SCH ×2 (10:21→20:50)
[2022-05-03] MEDS: VALPROIC ACID ORAL SOLN 250 MG/5 ML CUP PO SCH ×2 (10:21→20:53)
[2022-05-03] MEDS: LACTULOSE 20 GM/30 ML CUP PO SCH ×2 (10:21→20:53)
[2022-05-03] MEDS: ZIPRASIDONE 20 MG CAP PO SCH (10:21)
--- NOTE | 2022-05-03 13:21 | P.PN ---
Progress Note - Text Progress Note Date: 05/03/22 Interval History: Patient was seen today for psychiatric follow-up regarding patient's psychiatric condition. The patients nurse claims that patient has mainly been wandering around however causing any issues and no behavioral issues today. Patient reportedly slept about 6 hours last night according to staff. Patient was seen today in his room and was pacing around watching his tablet and a video. He looked up at fha underwriter and approached him however turned around and walked away and did not respond to any questions. He has been taking his medications. Mental Status Exam: General Appearance: Patient appears to be walking around his room with his tablet, not following any commands. Fair grooming and hygiene, wearing hospital gown with poor eye contact. Behavior: Walking around his room. Speech: Nonverbal Mood/Affect: Unable to assess Suicidality/Homicidality: Unable to assess Perceptions: Unable to assess. Not responding to internal stimuli. Though content/process: Unable to assess. He is nonverbal. Memory and concentration: Unable to assess Judgment and insight: Chronically limited IMPRESSIONS: Developmental delay History of cerebral palsy PLAN: -At this time patient DOES meet criteria for inpatient psychiatric admission to a developmental delay psych unit. Please continue on with trying to find patient a bed. -Patient DOES NOT have decision making capacity. -Would recommend the following medication changes/additions: increase invega 6 mg qhs + 6 mg daily. doxepin 25 mg daily at bedtime for sleep/mood, Depakene 750 mg twice a day for mood stabilization/aggression, Melatonin 10 mg daily at bedtime for sleep]. zyprexa 7.5 mg tid IM and PO option prn for severe agitation. benadryl 50 mg qhs prn for insomnia. Materials Management Supervisor is not able to put in the orders into the EMR and asked nurse to do this under my name. -Continue 1:1 sitter for safety -Communicated plan to patient's nurse -Will continue to follow along. if patient gets stabilized while in the ER then patient may be able to be transferred to a residential through [facility]. -Please contact with any questions.
[2022-05-03] MEDS ORDERED: PALIPERIDONE 3 MG TAB.ER.24 PO STA (13:47)
[2022-05-03] MEDS: DOXEPIN 25 MG CAP PO SCH (20:50)
[2022-05-03] MEDS: MELATONIN 5 MG TABLET PO SCH (20:51)
[2022-05-03] MEDS: PALIPERIDONE 6 MG TAB.ER.24 PO SCH (21:08)
[2022-05-03] MEDS: OLANZapine 10 MG VIAL IM PRN (22:56)
[2022-05-04] MEDS: FLUDROCORTISONE 0.1 MG TAB PO SCH ×4 (08:10→22:41)
[2022-05-04] MEDS: VALPROIC ACID ORAL SOLN 250 MG/5 ML CUP PO SCH ×2 (08:11→20:53)
[2022-05-04] MEDS: cloNIDine HCL 0.1 MG TAB PO SCH ×3 (08:12→22:39)
[2022-05-04] MEDS: FAMOTIDINE 20 MG TAB PO SCH ×3 (08:12→22:39)
[2022-05-04] MEDS: PALIPERIDONE 6 MG TAB.ER.24 PO SCH ×2 (11:08→22:38)
[2022-05-04] MEDS: LACTULOSE 20 GM/30 ML CUP PO SCH ×3 (11:08→22:41)
[2022-05-04] MEDS: OLANZapine 7.5 MG TAB PO PRN (13:24)
[2022-05-04] MEDS ORDERED: traZODone HCL 100 MG TAB PO PRN (13:39)
--- NOTE | 2022-05-04 13:50 | P.PN ---
Progress Note - Text Progress Note Date: 05/04/22 Interval History: Patient was seen today for psychiatric follow-up regarding patient's psychiatric condition. The patients nurse claims that patient just finished receiving a Zyprexa due to agitation and not being able to redirect patient. Patient apparently is still having some troubles with sleep at nighttime. He did not receive the Benadryl when necessary and instead received a Zyprexa when necessary. Patient does appear to continue to be more directable with staff and was asking for water today. He continues to be nonverbal and pacing around. He has been taking his medications. Mental Status Exam: General Appearance: Patient appears to be walking around his room with his table t, following some commands. Fair grooming and hygiene, wearing hospital gown with poor eye contact. Behavior: Walking around his room. Speech: Nonverbal Mood/Affect: Unable to assess Suicidality/Homicidality: Unable to assess Perceptions: Unable to assess. Not responding to internal stimuli. Though content/process: Unable to assess. He is nonverbal. Memory and concentration: Unable to assess Judgment and insight: Chronically limited IMPRESSIONS: Developmental delay History of cerebral palsy PLAN: -At this time patient DOES meet criteria for inpatient psychiatric admission to a developmental delay psych unit. Please continue on with trying to find patient a bed. -Patient DOES NOT have decision making capacity. -Would recommend the following medication changes/additions: invega 6 mg qhs + 6 mg daily. doxepin 25 mg daily at bedtime for sleep/mood, Depakene 750 mg twice a day for mood stabilization/aggression, Melatonin 10 mg daily at bedtime for sleep]. zyprexa 7.5 mg tid IM and PO option prn for severe agitation. benadryl 50 mg qhs for insomnia. Added trazodone 100 mg daily at bedtime when necessary for insomnia. -Continue 1:1 sitter for safety -Communicated plan to patient's nurse -Will continue to follow along. if patient gets stabilized while in the ER then patient may be able to be transferred to a skilled nursing through [facility]. -Please contact with any questions.
[2022-05-04] MEDS: diphenhydrAMINE 50 MG CAP PO SCH (20:13)
[2022-05-04] MEDS: MELATONIN 5 MG TABLET PO SCH (20:14)
[2022-05-04] MEDS ORDERED: traZODone HCL 50 MG TAB PO STA (20:28)
[2022-05-04] MEDS: DOXEPIN 25 MG CAP PO SCH (20:53)
[2022-05-04] MEDS: traZODone HCL 100 MG TAB PO STA (20:53)
[2022-05-04] MEDS: OLANZapine 10 MG VIAL IM PRN (22:00)
[2022-05-05] MEDS: LACTULOSE 20 GM/30 ML CUP PO SCH (08:43)
[2022-05-05] MEDS: FAMOTIDINE 20 MG TAB PO SCH ×2 (09:08→21:06)
[2022-05-05] MEDS: cloNIDine HCL 0.1 MG TAB PO SCH ×2 (09:08→21:10)
[2022-05-05] MEDS: VALPROIC ACID ORAL SOLN 250 MG/5 ML CUP PO SCH (09:08)
[2022-05-05] MEDS: FLUDROCORTISONE 0.1 MG TAB PO SCH ×3 (09:08→21:07)
[2022-05-05] MEDS: PALIPERIDONE 6 MG TAB.ER.24 PO SCH (09:08)
[2022-05-05] MEDS: OLANZapine 10 MG VIAL IM PRN (15:51)
[2022-05-05] MEDS ORDERED: traZODone HCL 50 MG TAB PO STA (20:33)
[2022-05-05] MEDS: MELATONIN 5 MG TABLET PO SCH ×2 (21:06→21:10)
[2022-05-05] MEDS: traZODone HCL 100 MG TAB PO STA (21:07)
[2022-05-06] MEDS: LACTULOSE 20 GM/30 ML CUP PO SCH ×3 (07:08→20:09)
[2022-05-06] MEDS: DOXEPIN 25 MG CAP PO SCH ×2 (07:08→20:10)
[2022-05-06] MEDS: VALPROIC ACID ORAL SOLN 250 MG/5 ML CUP PO SCH ×3 (07:08→20:09)
[2022-05-06] MEDS: PALIPERIDONE 6 MG TAB.ER.24 PO SCH ×3 (07:09→20:10)
[2022-05-06] MEDS: diphenhydrAMINE 50 MG CAP PO SCH ×2 (07:09→20:10)
[2022-05-06] MEDS: cloNIDine HCL 0.1 MG TAB PO SCH ×2 (08:47→20:09)
[2022-05-06] MEDS: OLANZapine 7.5 MG TAB PO PRN (08:47)
[2022-05-06] MEDS: FAMOTIDINE 20 MG TAB PO SCH ×2 (08:47→20:10)
[2022-05-06] MEDS: FLUDROCORTISONE 0.1 MG TAB PO SCH ×3 (09:29→20:09)
[2022-05-06] MEDS ORDERED: ACETAMINOPHEN ORAL SUSP 160 MG/5 ML CUP PO PRN (14:14)
[2022-05-06] MEDS: MELATONIN 5 MG TABLET PO SCH (20:09)
[2022-05-06] MEDS: traZODone HCL 100 MG TAB PO PRN (20:10)
[2022-05-07] MEDS: FLUDROCORTISONE 0.1 MG TAB PO SCH ×3 (08:17→22:09)
[2022-05-07] MEDS: cloNIDine HCL 0.1 MG TAB PO SCH ×2 (08:17→22:09)
[2022-05-07] MEDS: FAMOTIDINE 20 MG TAB PO SCH ×2 (08:17→22:09)
[2022-05-07] MEDS: VALPROIC ACID ORAL SOLN 250 MG/5 ML CUP PO SCH ×2 (08:18→22:08)
[2022-05-07] MEDS: PALIPERIDONE 6 MG TAB.ER.24 PO SCH ×2 (08:18→22:09)
[2022-05-07] MEDS: LACTULOSE 20 GM/30 ML CUP PO SCH ×2 (08:18→22:09)
[2022-05-07] MEDS: OLANZapine 10 MG VIAL IM PRN ×2 (16:14→22:10)
[2022-05-07] MEDS: traZODone HCL 100 MG TAB PO PRN (20:22)
[2022-05-07] MEDS: MELATONIN 5 MG TABLET PO SCH (22:08)
[2022-05-07] MEDS: DOXEPIN 25 MG CAP PO SCH (22:09)
[2022-05-07] MEDS: diphenhydrAMINE 50 MG CAP PO SCH (22:09)
[2022-05-08] MEDS: cloNIDine HCL 0.1 MG TAB PO SCH ×2 (07:49→20:29)
[2022-05-08] MEDS: VALPROIC ACID ORAL SOLN 250 MG/5 ML CUP PO SCH ×2 (07:49→20:37)
[2022-05-08] MEDS: PALIPERIDONE 6 MG TAB.ER.24 PO SCH ×2 (07:49→20:37)
[2022-05-08] MEDS: FLUDROCORTISONE 0.1 MG TAB PO SCH ×3 (07:49→20:31)
[2022-05-08] MEDS: FAMOTIDINE 20 MG TAB PO SCH ×2 (07:49→20:29)
[2022-05-08] MEDS: LACTULOSE 20 GM/30 ML CUP PO SCH ×2 (07:49→20:30)
[2022-05-08] MEDS: OLANZapine 10 MG VIAL IM PRN ×2 (09:01→20:37)
[2022-05-08] MEDS: traZODone HCL 100 MG TAB PO SCH (20:29)
[2022-05-08] MEDS: MELATONIN 5 MG TABLET PO SCH (20:29)
[2022-05-08] MEDS: lamoTRIgine 25 MG TAB PO SCH (20:29)
[2022-05-08] MEDS: diphenhydrAMINE 50 MG CAP PO SCH (20:30)
[2022-05-08] MEDS: DOXEPIN 25 MG CAP PO SCH (20:37)
--- NOTE | 2022-05-09 09:02 | PN ---
PROGRESS NOTE INTERVAL HISTORY: The patient was seen today for psychiatric followup regarding patient's psychiatric condition. The patient was seen today lying in his bed, sleeping, and was difficult to awake and continues to be nonverbal. According to staff members and the patient's nurse, the patient continues to wander at times in the ER and continues to grab at people when he wants something apparently. The patient has not been too aggressive. He was able to sleep better last night, however, was given Zyprexa p.r.n. The patient has also been taking his other psychiatric medications every day. MENTAL STATUS EXAMINATION: The patient is in a hospital gown, lying in bed in the position and somnolent. Unable to assess the patient's mood, he remains to be nonverbal. Unable to assess suicidal thoughts or homicidal thoughts or any perceptions. Unable to assess thought content and thought process. Unable to assess the patient's mental orientation. The patient has limited insight and judgment. ASSESSMENT/PLAN: Continue along with current assessment. Continue with trying to find psychiatric bed at different facilities. We will continue with medication management at this time. Continue with Sinequan 25 mg at bedtime, Benadryl 50 mg at bedtime, melatonin 10 mg at bedtime, b.i.d., increase trazodone to 200 mg scheduled at bedtime. Continue with Depakote liquid b.i.d. for mood stabilization. Added on Lamictal 25 mg b.i.d. for mood stabilization. Seed Corn Production Manager spoke with the patient's nurse about different behavioral techniques to try and minimize the use of p.r.n. and more redirection for the patient's behaviors. It is likely that the patient due to being nonverbal is attempting to communicate through grabbing at people. We will continue to work on the patient's sleep and agitation during the day. We will also continue following up with [facility] to see about possible custodial placement from the ER. Communicated plan with the patient's nurse and the orders for the senior technical writer. We will continue to follow along, please contact with any questions. MMODL / IJN: [id number] /
[2022-05-09] MEDS: LACTULOSE 20 GM/30 ML CUP PO SCH ×2 (09:57→20:49)
[2022-05-09] MEDS: cloNIDine HCL 0.1 MG TAB PO SCH ×2 (09:58→20:49)
[2022-05-09] MEDS: PALIPERIDONE 6 MG TAB.ER.24 PO SCH (09:58)
[2022-05-09] MEDS: VALPROIC ACID ORAL SOLN 250 MG/5 ML CUP PO SCH ×2 (09:58→20:49)
[2022-05-09] MEDS: FLUDROCORTISONE 0.1 MG TAB PO SCH ×3 (09:59→20:49)
[2022-05-09] MEDS: OLANZapine 7.5 MG TAB PO PRN (09:59)
[2022-05-09] MEDS: FAMOTIDINE 20 MG TAB PO SCH ×2 (09:59→20:49)
[2022-05-09] MEDS: lamoTRIgine 25 MG TAB PO SCH ×2 (10:09→20:50)
[2022-05-09] MEDS: OLANZapine 10 MG VIAL IM PRN (12:09)
[2022-05-09] MEDS ORDERED: VALPROIC ACID ORAL SOLN 250 MG/5 ML CUP PO ONE (14:15)
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
[2022-05-09] MEDS: chlorproMAZINE 25 MG TAB PO SCH (20:49)
[2022-05-09] MEDS: diphenhydrAMINE 50 MG CAP PO SCH (20:50)
[2022-05-09] MEDS: MELATONIN 5 MG TABLET PO SCH (20:50)
[2022-05-09] MEDS: traZODone HCL 100 MG TAB PO SCH (20:50)
[2022-05-09] MEDS: DOXEPIN 25 MG CAP PO SCH (20:50)
[2022-05-10] MEDS: cloNIDine HCL 0.1 MG TAB PO SCH ×2 (07:47→20:21)
[2022-05-10] MEDS: LACTULOSE 20 GM/30 ML CUP PO SCH ×2 (07:47→20:21)
[2022-05-10] MEDS: VALPROIC ACID ORAL SOLN 250 MG/5 ML CUP PO SCH ×2 (07:47→20:22)
[2022-05-10] MEDS: FAMOTIDINE 20 MG TAB PO SCH ×2 (07:48→20:21)
[2022-05-10] MEDS: FLUDROCORTISONE 0.1 MG TAB PO SCH ×3 (07:48→20:22)
[2022-05-10] MEDS: lamoTRIgine 25 MG TAB PO SCH ×2 (08:49→20:21)
[2022-05-10] MEDS: chlorproMAZINE 25 MG TAB PO SCH ×3 (10:10→20:22)
--- NOTE | 2022-05-10 14:42 | P.PN ---
Progress Note - Text Progress Note Date: 05/10/22 Interval History: Patient was seen today for psychiatric follow-up regarding patient's psychiatric condition. Patient appeared to be laying in bed awake and at times was noted to be getting up out of bed and trying to walk down the galo and needed to be escorted back to the room by sitters. The patients nurse and sitters claim that patient has been doing better since yesterday and is less aggressive however continues to grab at people at times however is more directable. Patient did not require a prn zyprexa sincenyesterday and apparenbtluy slept last night. He has been taking his medications. Mental Status Exam: General Appearance: Patient appears to be walking around his room with his tablet, following some commands improving. Fair grooming and hygiene, wearing hospital gown with poor eye contact. Behavior: Walking around his room. Speech: Nonverbal Mood/Affect: Unable to assess Suicidality/Homicidality: Unable to assess Perceptions: Unable to assess. Not responding to internal stimuli. Though content/process: Unable to assess. He is nonverbal. Memory and concentration: Unable to assess Judgment and insight: Chronically limited IMPRESSIONS: Developmental delay History of cerebral palsy PLAN: -At this time patient DOES meet criteria for inpatient psychiatric admission to a developmental delay psych unit. Please continue on with trying to find patient a bed. -Patient DOES NOT have decision making capacity. -Would recommend the following medication changes/additions: increase thorazine 50 mg bid + 25 mg at 12pm scheduled for agitation/psychosis. doxepin 25 mg daily at bedtime for sleep/mood, increase Depakene 1000 mg twice a day for mood stabilization/aggression, Melatonin 10 mg daily at bedtime for sleep]. zyprexa 7.5 mg tid IM and PO option prn for severe agitation. benadryl 50 mg qhs for insomnia. trazodone 200 mg daily at bedtime for insomnia. lamictal 50 mg bid for mood stablization. -Continue 1:1 sitter for safety -Communicated plan to patient's nurse -Will continue to follow along. if patient gets stabilized while in the ER then patient may be able to be transferred to a [place] [facility] [place] facility through [facility]. -Please contact with any questions.
[2022-05-10] MEDS: MELATONIN 5 MG TABLET PO SCH (20:21)
[2022-05-10] MEDS: DOXEPIN 25 MG CAP PO SCH (20:22)
[2022-05-10] MEDS: traZODone HCL 100 MG TAB PO SCH (20:22)
[2022-05-10] MEDS: diphenhydrAMINE 50 MG CAP PO SCH (20:22)
[2022-05-11] MEDS: cloNIDine HCL 0.1 MG TAB PO SCH ×3 (09:09→20:46)
[2022-05-11] MEDS: VALPROIC ACID ORAL SOLN 250 MG/5 ML CUP PO SCH ×2 (09:10→20:49)
[2022-05-11] MEDS: FAMOTIDINE 20 MG TAB PO SCH ×2 (09:10→20:45)
[2022-05-11] MEDS: chlorproMAZINE 25 MG TAB PO SCH ×3 (09:12→20:48)
[2022-05-11] MEDS: LACTULOSE 20 GM/30 ML CUP PO SCH ×2 (09:12→20:47)
[2022-05-11] MEDS: lamoTRIgine 25 MG TAB PO SCH ×2 (09:12→20:49)
[2022-05-11] MEDS: FLUDROCORTISONE 0.1 MG TAB PO SCH ×2 (16:08→20:47)
[2022-05-11] MEDS: DOXEPIN 25 MG CAP PO SCH (20:47)
[2022-05-11] MEDS: diphenhydrAMINE 50 MG CAP PO SCH (20:48)
[2022-05-11] MEDS: MELATONIN 5 MG TABLET PO SCH (20:48)
[2022-05-11] MEDS: traZODone HCL 100 MG TAB PO SCH (20:48)
[2022-05-12] MEDS: lamoTRIgine 25 MG TAB PO SCH ×2 (08:12→21:12)
[2022-05-12] MEDS: LACTULOSE 20 GM/30 ML CUP PO SCH ×2 (08:12→21:11)
[2022-05-12] MEDS: FAMOTIDINE 20 MG TAB PO SCH ×2 (08:13→08:14)
[2022-05-12] MEDS: cloNIDine HCL 0.1 MG TAB PO SCH (08:13)
[2022-05-12] MEDS: FLUDROCORTISONE 0.1 MG TAB PO SCH ×3 (08:13→19:36)
[2022-05-12] MEDS: VALPROIC ACID ORAL SOLN 250 MG/5 ML CUP PO SCH ×2 (09:09→21:10)
[2022-05-12] MEDS: chlorproMAZINE 25 MG TAB PO SCH ×2 (09:09→21:12)
[2022-05-12] MEDS: DOXEPIN 25 MG CAP PO SCH (21:12)
[2022-05-12] MEDS: diphenhydrAMINE 50 MG CAP PO SCH (21:12)
[2022-05-12] MEDS: MELATONIN 5 MG TABLET PO SCH (21:12)
[2022-05-12] MEDS: traZODone HCL 100 MG TAB PO SCH (21:13)
[2022-05-13] MEDS: FAMOTIDINE 20 MG TAB PO SCH ×2 (06:14→21:17)
[2022-05-13] MEDS: chlorproMAZINE 25 MG TAB PO SCH ×3 (06:14→21:17)
[2022-05-13] MEDS: lamoTRIgine 25 MG TAB PO SCH ×2 (06:15→21:17)
[2022-05-13] MEDS: cloNIDine HCL 0.1 MG TAB PO SCH ×2 (06:15→21:17)
[2022-05-13] MEDS: VALPROIC ACID ORAL SOLN 250 MG/5 ML CUP PO SCH ×2 (07:08→21:18)
[2022-05-13] MEDS: FLUDROCORTISONE 0.1 MG TAB PO SCH ×3 (07:08→21:17)
[2022-05-13] MEDS: LACTULOSE 20 GM/30 ML CUP PO SCH ×2 (07:08→21:17)
--- NOTE | 2022-05-13 18:33 | P.PN ---
Progress Note - Text Progress Note Date: 05/12/22 Psychiatry consult follow-up note: Interval History: Patient was seen today for psychiatric follow-up. Patient appeared to be laying in bed asleep with sitter for constant observation to maintain safety. Staff reports he is better today, has not been agitated and has not required PRN medications for agitation. He has been compliant with medications. Mental Status Exam: General Appearance: Patient with fair grooming and hygiene, wearing hospital gown with poor eye contact. Behavior: Resting in his bed Speech: Nonverbal Mood/Affect: Unable to assess Suicidality/Homicidality: Unable to assess Perceptions: Unable to assess. Not responding to internal stimuli. Though content/process: Unable to assess. He is nonverbal. Memory and concentration: Unable to assess Judgment and insight: Chronically limited IMPRESSIONS: Developmental delay History of cerebral palsy PLAN: -At this time patient DOES meet criteria for inpatient psychiatric admission to a developmental delay psych unit. Please continue on with trying to find patient a bed. -Patient DOES NOT have decision making capacity. -Continue medications as currently ordered. -Continue 1:1 sitter for safety -Communicated plan to patient's nurse. -Will continue to follow along. If patient gets stabilized while in the ER then patient may be able to be transferred to a fdc through [facility]. -Please contact with any questions.
[2022-05-13] MEDS: MELATONIN 5 MG TABLET PO SCH (21:17)
[2022-05-13] MEDS: DOXEPIN 25 MG CAP PO SCH (21:17)
[2022-05-13] MEDS: traZODone HCL 100 MG TAB PO SCH (21:17)
[2022-05-13] MEDS: diphenhydrAMINE 50 MG CAP PO SCH (21:17)
[2022-05-14] MEDS: OLANZapine 10 MG VIAL IM PRN ×2 (03:55→19:49)
[2022-05-14] MEDS: LACTULOSE 20 GM/30 ML CUP PO SCH ×2 (08:22→19:53)
[2022-05-14] MEDS: cloNIDine HCL 0.1 MG TAB PO SCH ×2 (08:22→19:53)
[2022-05-14] MEDS: FLUDROCORTISONE 0.1 MG TAB PO SCH ×3 (08:22→19:53)
[2022-05-14] MEDS: FAMOTIDINE 20 MG TAB PO SCH ×2 (08:23→19:53)
[2022-05-14] MEDS: VALPROIC ACID ORAL SOLN 250 MG/5 ML CUP PO SCH ×2 (08:23→20:03)
[2022-05-14] MEDS: lamoTRIgine 25 MG TAB PO SCH ×2 (08:35→19:55)
[2022-05-14] MEDS: chlorproMAZINE 25 MG TAB PO SCH ×3 (08:40→19:52)
--- NOTE | 2022-05-14 13:03 | P.PN ---
Progress Note - Text Progress Note Date: 05/14/22 Psychiatry consult follow-up note: Interval History: Patient was seen today for psychiatric follow-up. Patient appeared to be laying in bed asleep with sitter for constant observation to maintain safety. As per staff report, the patient has been more directable and predictable. He has been eating his meals. He continues to display coprophagia and other feces related behaviors. However, this is less frequent as to when he was first admitted. He is otherwise adherent with his medications. Mental Status Exam: General Appearance: Patient with fair grooming and hygiene, wearing hospital gown with poor eye contact. Behavior: Resting in bed without any agitated behaviors at this time. Speech: Nonverbal Mood/Affect: Unable to assess Suicidality/Homicidality: Unable to assess Perceptions: Unable to assess. Not responding to internal stimuli. Though content/process: Unable to assess. He is nonverbal. Memory and concentration: Unable to assess Judgment and insight: Chronically limited Vital Signs Temp 98.0 F 05/13/22 09:40 Pulse 78 05/13/22 09:40 Resp 18 05/13/22 09:40 BP 114/70 05/13/22 09:40 Pulse Ox 98 05/13/22 09:40 FiO2 IMPRESSIONS: Developmental delay History of cerebral palsy PLAN: -At this time patient DOES meet criteria for inpatient psychiatric admission to a developmental delay psych unit. Please continue on with trying to find patient a bed. -Patient DOES NOT have decision making capacity. -Continue medications as currently ordered. -Continue 1:1 sitter for safety -Communicated plan to patient's nurse. -Will continue to follow along. If patient gets stabilized while in the ER then patient may be able to be transferred to a care home through [facility]. -Please contact with any questions. Psychiatry will loosely follow at this time.
[2022-05-14] MEDS: diphenhydrAMINE 50 MG CAP PO SCH (20:04)
[2022-05-14] MEDS: MELATONIN 5 MG TABLET PO SCH (20:04)
[2022-05-14] MEDS: DOXEPIN 25 MG CAP PO SCH (20:04)
[2022-05-14] MEDS: traZODone HCL 100 MG TAB PO SCH (20:05)
--- NOTE | 2022-05-15 05:02 | XR ---
EXAMINATION TYPE: XR KUB DATE OF EXAM: 05/15/2022 COMPARISON: NONE HISTORY: Constipation TECHNIQUE: 2 views upright FINDINGS: There is no evidence of a pneumoperitoneum. Bony structures are intact. There is retained f ecal material throughout the large bowel. Lung bases are clear. No pathologic calcifications seen ov er the kidneys. IMPRESSION: Constipation. No free air.
[2022-05-15] MEDS: OLANZapine 7.5 MG TAB PO PRN (05:03)
[2022-05-15] MEDS: OLANZapine 10 MG VIAL IM PRN ×3 (05:03→22:49)
[2022-05-15] MEDS ORDERED: diphenhydrAMINE 50 MG/ML 1 ML VIAL IVP STA (05:06)
[2022-05-15] MEDS: cloNIDine HCL 0.1 MG TAB PO SCH ×2 (08:42→21:13)
[2022-05-15] MEDS: chlorproMAZINE 25 MG TAB PO SCH ×3 (08:52→21:14)
[2022-05-15] MEDS: FAMOTIDINE 20 MG TAB PO SCH ×2 (08:52→21:13)
[2022-05-15] MEDS: DOCUSATE 100 MG CAP PO SCH ×2 (08:52→21:15)
[2022-05-15] MEDS: lamoTRIgine 25 MG TAB PO SCH ×3 (08:52→21:17)
[2022-05-15] MEDS: FLUDROCORTISONE 0.1 MG TAB PO SCH ×3 (08:52→21:13)
[2022-05-15] MEDS: LACTULOSE 20 GM/30 ML CUP PO SCH ×2 (08:58→21:14)
[2022-05-15] MEDS: VALPROIC ACID ORAL SOLN 250 MG/5 ML CUP PO SCH ×2 (08:58→21:17)
--- NOTE | 2022-05-15 15:33 | ED ---
Medical Decision Making - Lab Data Result diagrams: 04/23/22 10:10 04/23/22 09:28 Lab Results 04/23/22 04/23/22 04/23/22 Range/Units 09:28 10:10 10:15 WBC 6.3 (3.8-10.6) k/uL RBC 4.72 (4.30-5.90) m/uL Hgb 14.1 (13.0-17.5) gm/dL Hct 42.0 (39.0-53.0) % MCV 89.1 (80.0-100.0) fL MCH 30.0 (25.0-35.0) pg MCHC 33.7 (31.0-37.0) g/dL RDW 13.5 (11.5-15.5) % Plt Count 206 (150-450) k/uL MPV 9.1 Neutrophils % 63 % Lymphocytes % 24 % Monocytes % 6 % Eosinophils % 5 % Basophils % 1 % Neutrophils # 3.9 (1.3-7.7) k/uL Lymphocytes # 1.5 (1.0-4.8) k/uL Monocytes # 0.4 (0-1.0) k/uL Eosinophils # 0.3 (0-0.7) k/uL Basophils # 0.0 (0-0.2) k/uL Sodium 141 (137-145) mmol/L Potassium 4.1 (3.5-5.1) mmol/L Chloride 106 (98-107) mmol/L Carbon Dioxide 26 (22-30) mmol/L Anion Gap 9 mmol/L BUN 14 (9-20) mg/dL Creatinine 0.61 L (0.66-1.25) mg/dL Est GFR (CKD-EPI)AfAm >90 (>60 ml/min/1.73 sqM) Est GFR (CKD-EPI)NonAf >90 (>60 ml/min/1.73 sqM) Glucose 100 H (74-99) mg/dL POC Glucose (mg/dL) 97 (70-110) mg/dL POC Glu Cyber Security ID Windy Andujar Calcium 9.4 (8.4-10.2) mg/dL Total Bilirubin 0.3 (0.2-1.3) mg/dL AST 27 (17-59) U/L ALT 15 (4-49) U/L Alkaline Phosphatase 69 (38-126) U/L Total Protein 6.4 (6.3-8.2) g/dL Albumin 3.7 (3.5-5.0) g/dL Urine Color Urine Appearance (Clear) Urine pH (5.0-8.0) Ur Specific [place] (1.001-1.035) Urine Protein (Negative) Urine Glucose (UA) (Negative) Urine Ketones (Negative) Urine Blood (Negative) Urine Nitrite (Negative) Urine Bilirubin (Negative) Urine Urobilinogen (<2.0) mg/dL Ur Leukocyte Esterase (Negative) Urine Opiates Screen (NotDetected) Ur Oxycodone Screen (NotDetected) Urine Methadone Screen (NotDetected) Ur Propoxyphene Screen (NotDetected) Ur Barbiturates Screen (NotDetected) Valproic Acid 62.3 ug/mL U Tricyclic Antidepress (NotDetected) Ur Phencyclidine Scrn (NotDetected) Ur Amphetamines Screen (NotDetected) U Methamphetamines Scrn (NotDetected) U Benzodiazepines Scrn (NotDetected) Urine Cocaine Screen (NotDetected) U Marijuana (THC) Screen (NotDetected) Coronavirus (PCR) (Not Detectd) 04/24/22 04/24/22 04/24/22 Range/Units 07:13 10:35 14:24 WBC (3.8-10.6) k/uL RBC (4.30-5.90) m/uL Hgb (13.0-17.5) gm/dL Hct (39.0-53.0) % MCV (80.0-100.0) fL MCH (25.0-35.0) pg MCHC (31.0-37.0) g/dL RDW (11.5-15.5) % Plt Count (150-450) k/uL MPV Neutrophils % % Lymphocytes % % Monocytes % % Eosinophils % % Basophils % % Neutrophils # (1.3-7.7) k/uL Lymphocytes # (1.0-4.8) k/uL Monocytes # (0-1.0) k/uL Eosinophils # (0-0.7) k/uL Basophils # (0-0.2) k/uL Sodium (137-145) mmol/L Potassium (3.5-5.1) mmol/L Chloride (98-107) mmol/L Carbon Dioxide (22-30) mmol/L Anion Gap mmol/L BUN (9-20) mg/dL Creatinine (0.66-1.25) mg/dL Est GFR (CKD-EPI)AfAm (>60 ml/min/1.73 sqM) Est GFR (CKD-EPI)NonAf (>60 ml/min/1.73 sqM) Glucose (74-99) mg/dL POC Glucose (mg/dL) (70-110) mg/dL POC Glu Cyber Security ID Calcium (8.4-10.2) mg/dL Total Bilirubin (0.2-1.3) mg/dL AST (17-59) U/L ALT (4-49) U/L Alkaline Phosphatase (38-126) U/L Total Protein (6.3-8.2) g/dL Albumin (3.5-5.0) g/dL Urine Color Light Yellow Urine Appearance Clear (Clear) Urine pH 7.0 (5.0-8.0) Ur Specific [place] 1.009 (1.001-1.035) Urine Protein Negative (Negative) Urine Glucose (UA) Negative (Negative) Urine Ketones Trace H (Negative) Urine Blood Negative (Negative) Urine Nitrite Negative (Negative) Urine Bilirubin Negative (Negative) Urine Urobilinogen <2.0 (<2.0) mg/dL Ur Leukocyte Esterase Negative (Negative) Urine Opiates Screen Not Detected (NotDetected) Ur Oxycodone Screen Not Detected (NotDetected) Urine Methadone Screen Not Detected (NotDetected) Ur Propoxyphene Screen Not Detected (NotDetected) Ur Barbiturates Screen Not Detected (NotDetected) Valproic Acid ug/mL U Tricyclic Antidepress Not Detected (NotDetected) Ur Phencyclidine Scrn Not Detected (NotDetected) Ur Amphetamines Screen Not Detected (NotDetected) U Methamphetamines Scrn Not Detected (NotDetected) U Benzodiazepines Scrn Detected H (NotDetected) Urine Cocaine Screen Not Detected (NotDetected) U Marijuana (THC) Screen Not Detected (NotDetected) Coronavirus (PCR) Not Detected (Not Detectd) Disposition Clinical Impression: Encounter for psychiatric assessment Disposition: TRANSFER TO PSYCH HOSP/UNIT Condition: Stable Is patient prescribed a controlled substance at d/c from ED?: No Referrals: Lenny Colindres MD [Primary Care Provider] - 1-2 days Procedures - Restraint - Face to Face Restraint Occurrence 1 Patient's Immediate Situation: Endangers staff safety Patient's Reaction to the Intervention: Fearful, Bizarre, Resistive to care Patient's Medical & Behavioral Condition: Agitated Need to Continue or Terminate Restraint or Seclusion: Continue Face to Face Eval of Restraint Date: 05/15/22 Face to Face Eval of Restraint Time: 15:00 Restraint Occurrence 2 Patient's Immediate Situation: Endangers others' safety Patient's Reaction to the Intervention: Aggressive, Combative Patient's Medical & Behavioral Condition: Agitated Need to Continue or Terminate Restraint or Seclusion: Continue Face to Face Eval of Restraint Date: 05/15/22 Face to Face Eval of Restraint Time: 17:00
[2022-05-15] MEDS: diphenhydrAMINE 50 MG CAP PO SCH (21:15)
[2022-05-15] MEDS: traZODone HCL 100 MG TAB PO SCH (21:32)
[2022-05-15] MEDS: DOXEPIN 25 MG CAP PO SCH (21:33)
[2022-05-15] MEDS: MELATONIN 5 MG TABLET PO SCH (21:33)
[2022-05-16] MEDS: LACTULOSE 20 GM/30 ML CUP PO SCH ×2 (06:45→20:13)
[2022-05-16] MEDS: cloNIDine HCL 0.1 MG TAB PO SCH ×2 (06:46→20:13)
[2022-05-16] MEDS: FAMOTIDINE 20 MG TAB PO SCH ×2 (06:47→20:12)
[2022-05-16] MEDS: FLUDROCORTISONE 0.1 MG TAB PO SCH ×3 (06:47→20:13)
[2022-05-16] MEDS: VALPROIC ACID ORAL SOLN 250 MG/5 ML CUP PO SCH ×2 (06:49→20:12)
[2022-05-16] MEDS: DOCUSATE 100 MG CAP PO SCH ×2 (09:10→20:13)
[2022-05-16] MEDS: chlorproMAZINE 25 MG TAB PO SCH ×3 (09:11→20:14)
[2022-05-16] MEDS: OLANZapine 10 MG VIAL IM PRN ×2 (12:02→20:14)
[2022-05-16] MEDS: OLANZapine 7.5 MG TAB PO PRN (18:28)
[2022-05-16] MEDS: diphenhydrAMINE 50 MG CAP PO SCH (20:12)
[2022-05-16] MEDS: MELATONIN 5 MG TABLET PO SCH (20:13)
[2022-05-16] MEDS: lamoTRIgine 25 MG TAB PO SCH (20:13)
[2022-05-16] MEDS: traZODone HCL 100 MG TAB PO SCH (20:13)
[2022-05-16] MEDS: DOXEPIN 25 MG CAP PO SCH (20:13)
[2022-05-17] MEDS: OLANZapine 10 MG VIAL IM PRN ×3 (03:54→21:37)
[2022-05-17] MEDS: FLUDROCORTISONE 0.1 MG TAB PO SCH ×3 (08:54→20:49)
[2022-05-17] MEDS: FAMOTIDINE 20 MG TAB PO SCH ×3 (08:54→20:49)
[2022-05-17] MEDS: cloNIDine HCL 0.1 MG TAB PO SCH ×2 (08:54→20:48)
[2022-05-17] MEDS: DOCUSATE 100 MG CAP PO SCH ×2 (08:54→20:13)
[2022-05-17] MEDS: VALPROIC ACID ORAL SOLN 250 MG/5 ML CUP PO SCH ×2 (08:55→20:13)
[2022-05-17] MEDS: lamoTRIgine 25 MG TAB PO SCH ×2 (08:55→20:13)
[2022-05-17] MEDS: LACTULOSE 20 GM/30 ML CUP PO SCH ×2 (08:55→20:49)
[2022-05-17] MEDS: chlorproMAZINE 25 MG TAB PO SCH ×4 (08:55→20:13)
--- NOTE | 2022-05-17 12:26 | P.PN ---
Progress Note - Text Progress Note Date: 05/17/22 Psychiatry consult follow-up note: Interval History: Patient was seen today for psychiatric follow-up. The patient was noted by staff to engage in coprophagia. He also has been displaying and judgment episodes of anger and agitation. He has been noted to be pulling hair, grabbing at next and faces, and throwing himself on the floor. He has been adherent with his medications. Mental Status Exam: General Appearance: Patient with fair grooming and hygiene, wearing hospital gown with poor eye contact. Behavior: Patient was seen pacing around his room and stepdown to the hallway however was redirectable back into his room. Speech: Nonverbal Mood/Affect: Unable to assess Suicidality/Homicidality: Unable to assess Perceptions: Unable to assess. Not responding to internal stimuli. Though content/process: Unable to assess. He is nonverbal. Memory and concentration: Unable to assess Judgment and insight: Chronically limited Vital Signs Temp 97.6 F 05/16/22 06:38 Pulse 104 H 05/16/22 06:38 Resp 16 05/16/22 06:38 BP 124/86 05/16/22 06:38 Pulse Ox 98 05/16/22 06:38 FiO2 IMPRESSIONS: Developmental delay History of cerebral palsy PLAN: -At this time patient DOES meet criteria for inpatient psychiatric admission to a developmental delay psych unit. Please continue on with trying to find patient a bed. -Patient DOES NOT have decision making capacity. -Continue medications as currently ordered with the exception of increasing doxepin to 50 mg at bedtime for insomnia and Thorazine to 50 mg by mouth 3 times a day for agitation -Continue 1:1 sitter for safety -Communicated plan to patient's nurse. -Will continue to follow along. If patient gets stabilized while in the ER then patient may be able to be transferred to a skilled nursing through [facility]. -Please contact with any questions. Psychiatry will loosely follow at this time.
[2022-05-17] MEDS: OLANZapine 7.5 MG TAB PO PRN (15:59)
[2022-05-17] MEDS ORDERED: ZIPRASIDONE 20 MG VIAL IM STA (17:30)
[2022-05-17] MEDS ORDERED: diphenhydrAMINE 50 MG/ML 1 ML VIAL IM STA (17:33)
[2022-05-17] MEDS: DOXEPIN 25 MG CAP PO SCH (20:13)
[2022-05-17] MEDS: traZODone HCL 100 MG TAB PO SCH (20:48)
[2022-05-17] MEDS: diphenhydrAMINE 50 MG CAP PO SCH (20:48)
[2022-05-17] MEDS: MELATONIN 5 MG TABLET PO SCH (20:48)
[2022-05-18] MEDS: cloNIDine HCL 0.1 MG TAB PO SCH ×2 (08:03→20:45)
[2022-05-18] MEDS: FLUDROCORTISONE 0.1 MG TAB PO SCH ×3 (08:04→21:12)
[2022-05-18] MEDS: FAMOTIDINE 20 MG TAB PO SCH ×2 (08:04→20:45)
[2022-05-18] MEDS: chlorproMAZINE 25 MG TAB PO SCH ×3 (08:04→21:11)
[2022-05-18] MEDS: VALPROIC ACID ORAL SOLN 250 MG/5 ML CUP PO SCH ×2 (08:04→20:44)
[2022-05-18] MEDS: lamoTRIgine 25 MG TAB PO SCH ×2 (08:05→20:44)
[2022-05-18] MEDS: LACTULOSE 20 GM/30 ML CUP PO SCH ×2 (08:05→20:43)
[2022-05-18] MEDS: DOCUSATE 100 MG CAP PO SCH ×2 (08:05→20:45)
[2022-05-18] MEDS: OLANZapine 10 MG VIAL IM PRN (13:00)
[2022-05-18] MEDS: OLANZapine 7.5 MG TAB PO PRN (17:00)
[2022-05-18] MEDS: MELATONIN 5 MG TABLET PO SCH (20:44)
[2022-05-18] MEDS: diphenhydrAMINE 50 MG CAP PO SCH (20:45)
[2022-05-18] MEDS: DOXEPIN 25 MG CAP PO SCH (20:45)
[2022-05-18] MEDS: traZODone HCL 100 MG TAB PO SCH (21:11)
[2022-05-19] MEDS ORDERED: SENNOSIDES-DOCUSATE SODIUM 1 EACH TAB PO STA (01:34)
[2022-05-19] MEDS ORDERED: polyethylene glycoL 3350 17 GM POWD.PACK PO STA (01:34)
--- NOTE | 2022-05-19 01:38 | XR ---
EXAMINATION TYPE: XR KUB DATE OF EXAM: 05/19/2022 COMPARISON: 05/15/2022 HISTORY: Constipation TECHNIQUE: FINDINGS: There is no sign of intestinal obstruction or pneumoperitoneum. There is some mild retained fecal material in the large bowel. No pathologic calcifications over the kidneys. No evidence of a m ass. IMPRESSION: Constipation which is improved compared to old exam.
[2022-05-19] MEDS: OLANZapine 10 MG VIAL IM PRN ×2 (05:06→12:25)
[2022-05-19] MEDS ORDERED: diphenhydrAMINE 50 MG/ML 1 ML VIAL IM STA (05:46)
[2022-05-19] MEDS ORDERED: chlorproMAZINE 25 MG/ML 1 ML AMP IM ONE (06:00)
[2022-05-19] MEDS: cloNIDine HCL 0.1 MG TAB PO SCH ×2 (10:21→21:52)
[2022-05-19] MEDS: lamoTRIgine 25 MG TAB PO SCH ×2 (10:22→21:51)
[2022-05-19] MEDS: FLUDROCORTISONE 0.1 MG TAB PO SCH ×2 (10:22→21:52)
[2022-05-19] MEDS: chlorproMAZINE 25 MG TAB PO SCH ×2 (10:22→21:51)
[2022-05-19] MEDS: VALPROIC ACID ORAL SOLN 250 MG/5 ML CUP PO SCH ×2 (10:22→21:56)
[2022-05-19] MEDS: FAMOTIDINE 20 MG TAB PO SCH ×2 (10:22→21:52)
[2022-05-19] MEDS: LACTULOSE 20 GM/30 ML CUP PO SCH ×2 (10:23→21:50)
[2022-05-19] MEDS: DOCUSATE 100 MG CAP PO SCH ×2 (10:23→21:51)
[2022-05-19] MEDS: OLANZapine 7.5 MG TAB PO PRN (11:47)
--- NOTE | 2022-05-19 12:36 | ED ---
Medical Decision Making - Medical Decision Making Patient became abusive towards staff and nonredirectable. Restraints were placed. See Face to Face. - Lab Data Result diagrams: 04/23/22 10:10 04/23/22 09:28 Lab Results 04/23/22 04/23/22 04/23/22 Range/Units 09:28 10:10 10:15 WBC 6.3 (3.8-10.6) k/uL RBC 4.72 (4.30-5.90) m/uL Hgb 14.1 (13.0-17.5) gm/dL Hct 42.0 (39.0-53.0) % MCV 89.1 (80.0-100.0) fL MCH 30.0 (25.0-35.0) pg MCHC 33.7 (31.0-37.0) g/dL RDW 13.5 (11.5-15.5) % Plt Count 206 (150-450) k/uL MPV 9.1 Neutrophils % 63 % Lymphocytes % 24 % Monocytes % 6 % Eosinophils % 5 % Basophils % 1 % Neutrophils # 3.9 (1.3-7.7) k/uL Lymphocytes # 1.5 (1.0-4.8) k/uL Monocytes # 0.4 (0-1.0) k/uL Eosinophils # 0.3 (0-0.7) k/uL Basophils # 0.0 (0-0.2) k/uL Sodium 141 (137-145) mmol/L Potassium 4.1 (3.5-5.1) mmol/L Chloride 106 (98-107) mmol/L Carbon Dioxide 26 (22-30) mmol/L Anion Gap 9 mmol/L BUN 14 (9-20) mg/dL Creatinine 0.61 L (0.66-1.25) mg/dL Est GFR (CKD-EPI)AfAm >90 (>60 ml/min/1.73 sqM) Est GFR (CKD-EPI)NonAf >90 (>60 ml/min/1.73 sqM) Glucose 100 H (74-99) mg/dL POC Glucose (mg/dL) 97 (70-110) mg/dL POC Glu Portable Sawmill Operator ID Con, Windy Calcium 9.4 (8.4-10.2) mg/dL Total Bilirubin 0.3 (0.2-1.3) mg/dL AST 27 (17-59) U/L ALT 15 (4-49) U/L Alkaline Phosphatase 69 (38-126) U/L Total Protein 6.4 (6.3-8.2) g/dL Albumin 3.7 (3.5-5.0) g/dL Urine Color Urine Appearance (Clear) Urine pH (5.0-8.0) Ur Specific [place] (1.001-1.035) Urine Protein (Negative) Urine Glucose (UA) (Negative) Urine Ketones (Negative) Urine Blood (Negative) Urine Nitrite (Negative) Urine Bilirubin (Negative) Urine Urobilinogen (<2.0) mg/dL Ur Leukocyte Esterase (Negative) Urine Opiates Screen (NotDetected) Ur Oxycodone Screen (NotDetected) Urine Methadone Screen (NotDetected) Ur Propoxyphene Screen (NotDetected) Ur Barbiturates Screen (NotDetected) Valproic Acid 62.3 ug/mL U Tricyclic Antidepress (NotDetected) Ur Phencyclidine Scrn (NotDetected) Ur Amphetamines Screen (NotDetected) U Methamphetamines Scrn (NotDetected) U Benzodiazepines Scrn (NotDetected) Urine Cocaine Screen (NotDetected) U Marijuana (THC) Screen (NotDetected) Coronavirus (PCR) (Not Detectd) 04/24/22 04/24/22 04/24/22 Range/Units 07:13 10:35 14:24 WBC (3.8-10.6) k/uL RBC (4.30-5.90) m/uL Hgb (13.0-17.5) gm/dL Hct (39.0-53.0) % MCV (80.0-100.0) fL MCH (25.0-35.0) pg MCHC (31.0-37.0) g/dL RDW (11.5-15.5) % Plt Count (150-450) k/uL MPV Neutrophils % % Lymphocytes % % Monocytes % % Eosinophils % % Basophils % % Neutrophils # (1.3-7.7) k/uL Lymphocytes # (1.0-4.8) k/uL Monocytes # (0-1.0) k/uL Eosinophils # (0-0.7) k/uL Basophils # (0-0.2) k/uL Sodium (137-145) mmol/L Potassium (3.5-5.1) mmol/L Chloride (98-107) mmol/L Carbon Dioxide (22-30) mmol/L Anion Gap mmol/L BUN (9-20) mg/dL Creatinine (0.66-1.25) mg/dL Est GFR (CKD-EPI)AfAm (>60 ml/min/1.73 sqM) Est GFR (CKD-EPI)NonAf (>60 ml/min/1.73 sqM) Glucose (74-99) mg/dL POC Glucose (mg/dL) (70-110) mg/dL POC Glu Portable Sawmill Operator ID Calcium (8.4-10.2) mg/dL Total Bilirubin (0.2-1.3) mg/dL AST (17-59) U/L ALT (4-49) U/L Alkaline Phosphatase (38-126) U/L Total Protein (6.3-8.2) g/dL Albumin (3.5-5.0) g/dL Urine Color Light Yellow Urine Appearance Clear (Clear) Urine pH 7.0 (5.0-8.0) Ur Specific [place] 1.009 (1.001-1.035) Urine Protein Negative (Negative) Urine Glucose (UA) Negative (Negative) Urine Ketones Trace H (Negative) Urine Blood Negative (Negative) Urine Nitrite Negative (Negative) Urine Bilirubin Negative (Negative) Urine Urobilinogen <2.0 (<2.0) mg/dL Ur Leukocyte Esterase Negative (Negative) Urine Opiates Screen Not Detected (NotDetected) Ur Oxycodone Screen Not Detected (NotDetected) Urine Methadone Screen Not Detected (NotDetected) Ur Propoxyphene Screen Not Detected (NotDetected) Ur Barbiturates Screen Not Detected (NotDetected) Valproic Acid ug/mL U Tricyclic Antidepress Not Detected (NotDetected) Ur Phencyclidine Scrn Not Detected (NotDetected) Ur Amphetamines Screen Not Detected (NotDetected) U Methamphetamines Scrn Not Detected (NotDetected) U Benzodiazepines Scrn Detected H (NotDetected) Urine Cocaine Screen Not Detected (NotDetected) U Marijuana (THC) Screen Not Detected (NotDetected) Coronavirus (PCR) Not Detected (Not Detectd) Disposition Clinical Impression: Encounter for psychiatric assessment Disposition: TRANSFER TO PSYCH HOSP/UNIT Condition: Stable Referrals: Lenny Colindres MD [Primary Care Provider] - 1-2 days Procedures - Restraint - Face to Face Restraint Occurrence 1 Patient's Immediate Situation: Endangers others' safety, Endangers staff safety, Violent behavior Patient's Reaction to the Intervention: Appropriate Patient's Medical & Behavioral Condition: Awake, Alert Need to Continue or Terminate Restraint or Seclusion: Continue Face to Face Eval of Restraint Date: 05/19/22 Face to Face Eval of Restraint Time: 12:30
[2022-05-19] MEDS ORDERED: diphenhydrAMINE 50 MG/ML 1 ML VIAL IM PRN (17:21)
[2022-05-19] MEDS: diphenhydrAMINE 50 MG CAP PO SCH (21:51)
[2022-05-19] MEDS: DOXEPIN 25 MG CAP PO SCH (21:51)
[2022-05-20] MEDS: FLUDROCORTISONE 0.1 MG TAB PO SCH ×4 (00:41→19:52)
[2022-05-20] MEDS: MELATONIN 5 MG TABLET PO SCH ×2 (00:42→20:54)
[2022-05-20] MEDS: traZODone HCL 100 MG TAB PO SCH ×2 (00:42→21:31)
[2022-05-20] MEDS: chlorproMAZINE 25 MG TAB PO SCH ×4 (00:44→21:32)
[2022-05-20] MEDS: VALPROIC ACID ORAL SOLN 250 MG/5 ML CUP PO SCH ×2 (09:55→19:55)
[2022-05-20] MEDS: LACTULOSE 20 GM/30 ML CUP PO SCH ×2 (09:56→19:53)
[2022-05-20] MEDS: DOCUSATE 100 MG CAP PO SCH ×3 (10:56→21:31)
[2022-05-20] MEDS: lamoTRIgine 25 MG TAB PO SCH ×2 (10:57→20:57)
[2022-05-20] MEDS: cloNIDine HCL 0.1 MG TAB PO SCH ×2 (10:57→19:52)
[2022-05-20] MEDS: FAMOTIDINE 20 MG TAB PO SCH ×2 (10:58→19:54)
[2022-05-20] MEDS: chlorproMAZINE 25 MG/ML 1 ML AMP IM PRN (13:03)
[2022-05-20] MEDS: diphenhydrAMINE 50 MG CAP PO SCH (20:53)
[2022-05-20] MEDS: DOXEPIN 25 MG CAP PO SCH (20:55)
[2022-05-20] MEDS: OLANZapine 10 MG VIAL IM PRN (22:10)
[2022-05-21] MEDS: chlorproMAZINE 25 MG/ML 1 ML AMP IM PRN (02:10)
[2022-05-21] MEDS: OLANZapine 7.5 MG TAB PO PRN ×2 (03:37→11:33)
[2022-05-21] MEDS ORDERED: diphenhydrAMINE 50 MG/ML 1 ML VIAL IM STA (06:10)
[2022-05-21] MEDS ORDERED: ZIPRASIDONE 20 MG VIAL IM STA (06:10)
[2022-05-21] MEDS: cloNIDine HCL 0.1 MG TAB PO SCH ×2 (10:11→20:12)
[2022-05-21] MEDS: FLUDROCORTISONE 0.1 MG TAB PO SCH ×3 (10:11→20:08)
[2022-05-21] MEDS: VALPROIC ACID ORAL SOLN 250 MG/5 ML CUP PO SCH ×2 (10:12→20:13)
[2022-05-21] MEDS: FAMOTIDINE 20 MG TAB PO SCH ×2 (10:12→20:11)
[2022-05-21] MEDS: lamoTRIgine 25 MG TAB PO SCH (11:32)
[2022-05-21] MEDS: LACTULOSE 20 GM/30 ML CUP PO SCH ×2 (11:32→20:18)
[2022-05-21] MEDS: DOCUSATE 100 MG CAP PO SCH ×3 (11:33→20:56)
[2022-05-21] MEDS: chlorproMAZINE 25 MG TAB PO SCH (11:33)
--- NOTE | 2022-05-21 13:40 | P.PN ---
Progress Note - Text Progress Note Date: 05/21/22 Interval History: Patient was seen today for psychiatric follow-up regarding patient's psychiatric condition. Patients nurse claims that patient received Thorazine, Benadryl and Zyprexa prns for agitation and aggression towards staff members earlier this morning/early last night. Patient was seen today laying in bed sleeping and continues to be nonverbal. He apparently has been sleeping fairly throughout the nighttime. He has been taking his medications as prescribed. Mental Status Exam: General Appearance: Patient \is sleeping in his bed. Fair grooming and hygiene, wearing hospital gown Behavior: Laying in his bed, sleeping. Speech: Nonverbal Mood/Affect: Unable to assess Suicidality/Homicidality: Unable to assess Perceptions: Unable to assess. Not responding to internal stimuli. Though content/process: Unable to assess. He is nonverbal. Memory and concentration: Unable to assess Judgment and insight: Chronically limited IMPRESSIONS: Developmental delay History of cerebral palsy PLAN: -At this time patient DOES meet criteria for inpatient psychiatric admission to a developmental delay psych unit. Please continue on with trying to find patient a bed. -Patient DOES NOT have decision making capacity. -Would recommend the following medication changes/additions: increase thorazine 100 mg bid sheduled for agitation/psychosis, doxepin 50 mg daily at bedtime for sleep/mood, Depakene 1000 mg twice a day for mood stabilization/aggression, check level tomorrow morning, Melatonin 10 mg daily at bedtime for sleep. zyprexa 7.5 mg tid IM and PO option prn for severe agitation. decrease benadryl 25 mg qhs for insomnia. increase trazodone 300 mg daily at bedtime for insomnia. increase lamictal 100 mg bid for mood stablization. added klonopin 1 mg bid prn for anxiety/agitation. -Continue 1:1 sitter for safety -Communicated plan to patient's nurse -Will continue to follow along. if patient gets stabilized while in the ER then patient may be able to be transferred to a long term through [facility]. -Please contact with any questions.
[2022-05-21] MEDS: MELATONIN 5 MG TABLET PO SCH (20:11)
[2022-05-21] MEDS: DOXEPIN 25 MG CAP PO SCH (20:15)
[2022-05-21] MEDS: chlorproMAZINE 100 MG TAB PO SCH (20:16)
[2022-05-21] MEDS: traZODone HCL 100 MG TAB PO SCH (20:18)
[2022-05-21] MEDS: diphenhydrAMINE 25 MG CAP PO SCH (20:21)
[2022-05-21] MEDS: lamoTRIgine 100 MG TAB PO SCH (20:56)
[2022-05-21] MEDS: clonazePAM 1 MG TAB PO PRN (22:32)
[2022-05-21] MEDS: ZIPRASIDONE 20 MG VIAL IM PRN (22:46)
[2022-05-22] MEDS: VALPROIC ACID ORAL SOLN 250 MG/5 ML CUP PO SCH ×2 (07:01→19:58)
[2022-05-22] MEDS: cloNIDine HCL 0.1 MG TAB PO SCH ×2 (07:02→20:00)
[2022-05-22] MEDS: FLUDROCORTISONE 0.1 MG TAB PO SCH ×4 (07:02→19:49)
[2022-05-22] MEDS: FAMOTIDINE 20 MG TAB PO SCH ×2 (07:02→19:45)
[2022-05-22] MEDS: DOCUSATE 100 MG CAP PO SCH ×2 (09:53→19:45)
[2022-05-22] MEDS: chlorproMAZINE 100 MG TAB PO SCH ×2 (09:54→19:44)
[2022-05-22] MEDS: lamoTRIgine 100 MG TAB PO SCH ×2 (09:54→19:44)
[2022-05-22] MEDS: LACTULOSE 20 GM/30 ML CUP PO SCH ×2 (09:55→19:58)
--- NOTE | 2022-05-22 13:29 | P.PN ---
Progress Note - Text Progress Note Date: 05/22/22 Interval History: Patient was seen today for psychiatric follow-up regarding patient's psychiatric condition. Patients nurse claims that patient has been doing a bit better today and has been a bit calmer. She states that last night she was finding difficult to sleep and was agitated and required Zyprexa and Benadryl prns to help with sleep and also agitation and aggression. She has been watching his tablet today and was eating fairly and also taking his medications. Both sitter and nurse claims that patient has improved since yesterday. Patient was seen today laying in bed watching his tablet and was distracted and nonverbal and did not say anything to data analyst report writer. He has been taking his medications as prescribed. Mental Status Exam: General Appearance: Patient is in his bed. Fair grooming and hygiene, wearing hospital gown Behavior: Laying in his bed, watching tablet. Speech: Nonverbal Mood/Affect: Unable to assess Suicidality/Homicidality: Unable to assess Perceptions: Unable to assess. Not responding to internal stimuli. Though content/process: Unable to assess. He is nonverbal. Memory and concentration: Unable to assess Judgment and insight: Chronically limited IMPRESSIONS: Developmental delay History of cerebral palsy PLAN: -At this time patient DOES meet criteria for inpatient psychiatric admission to a developmental delay psych unit. -Patient DOES NOT have decision making capacity. -Would recommend the following medication changes/additions: increase thorazine 150 mg bid sheduled for agitation/psychosis, doxepin 50 mg daily at bedtime for sleep/mood, Depakene 1000 mg twice a day for mood stabilization/aggression, VPA level on 05/22 - 34.8, Melatonin 10 mg daily at bedtime for sleep. zyprexa 7.5 mg tid IM and PO option prn for severe agitation. benadryl 25 mg qhs for insomnia. trazodone 300 mg daily at bedtime for insomnia, lamictal 100 mg bid for mood stablization. klonopin 1 mg bid prn for anxiety/agitation with 1 mg scheduled QHS for sleep -Continue 1:1 sitter for safety -Communicated plan to patient's nurse -Will continue to follow along. if patient gets stabilized while in the ER then patient may be able to be transferred to a detention through [facility]. -data analyst report writer attempted today to call Mary Burns to discuss patients care and treatm ent however no answer, left VM -Please contact with any questions.
[2022-05-22] MEDS: ZIPRASIDONE 20 MG VIAL IM PRN (19:33)
[2022-05-22] MEDS: DOXEPIN 25 MG CAP PO SCH (19:45)
[2022-05-22] MEDS: MELATONIN 5 MG TABLET PO SCH (19:45)
[2022-05-22] MEDS: clonazePAM 1 MG TAB PO SCH (19:49)
[2022-05-22] MEDS: diphenhydrAMINE 25 MG CAP PO SCH (19:49)
[2022-05-22] MEDS: traZODone HCL 100 MG TAB PO SCH (19:50)
[2022-05-23] MEDS: ZIPRASIDONE 20 MG VIAL IM PRN (04:24)
[2022-05-23] MEDS: OLANZapine 10 MG VIAL IM PRN (06:18)
[2022-05-23] MEDS: cloNIDine HCL 0.1 MG TAB PO SCH ×2 (08:03→23:06)
[2022-05-23] MEDS: FAMOTIDINE 20 MG TAB PO SCH ×2 (08:04→19:54)
[2022-05-23] MEDS: LACTULOSE 20 GM/30 ML CUP PO SCH ×2 (08:04→19:54)
[2022-05-23] MEDS: VALPROIC ACID ORAL SOLN 250 MG/5 ML CUP PO SCH ×2 (08:04→23:06)
[2022-05-23] MEDS: chlorproMAZINE 100 MG TAB PO SCH ×2 (08:05→19:56)
[2022-05-23] MEDS: DOCUSATE 100 MG CAP PO SCH ×2 (08:06→19:55)
[2022-05-23] MEDS: lamoTRIgine 100 MG TAB PO SCH ×2 (08:07→19:56)
--- NOTE | 2022-05-23 15:14 | P.PN ---
Progress Note - Text Progress Note Date: 05/23/22 Interval History: Patient was seen today for psychiatric follow-up regarding patient's psychiatric condition. Patients nurse claims that patient has been doing relatively better today however was apparently grabbing at sitter and also staff members earlier and according to documentation and MAR, patient did receive prns overnight and earlier this morning. Patient did appear to be fairly calm in his room watching his tablet and apparently showered yesterday. Seems to be that his sleep has b een gradually improving. He has been taking his medications as prescribed. Mental Status Exam: General Appearance: Patient is in his bed. Fair grooming and hygiene, wearing hospital gown Behavior: Laying in his bed, watching tablet. Speech: Nonverbal Mood/Affect: Unable to assess Suicidality/Homicidality: Unable to assess Perceptions: Unable to assess. Not responding to internal stimuli. Though content/process: Unable to assess. He is nonverbal. Memory and concentration: Unable to assess Judgment and insight: Chronically limited IMPRESSIONS: Developmental delay History of cerebral palsy PLAN: -At this time patient DOES meet criteria for inpatient psychiatric admission to a developmental delay psych unit. -Patient DOES NOT have decision making capacity. -Would recommend the following medication changes/additions: thorazine 150 mg bid sheduled for agitation/psychosis, doxepin 50 mg daily at bedtime for sleep/mood, Depakene 1000 mg twice a day for mood stabilization/aggression, VPA level on 05/22 - 34.8, Melatonin 10 mg daily at bedtime for sleep. zyprexa 7.5 mg tid IM and PO option prn for severe agitation. benadryl 25 mg qhs for insomnia. trazodone 300 mg daily at bedtime for insomnia, lamictal 100 mg bid for mood stablization. klonopin 1 mg bid prn for anxiety/agitation plus increase 2 mg scheduled QHS for sleep -Continue 1:1 sitter for safety -Communicated plan to patient's nurse -Will continue to follow along. if patient gets stabilized while in the ER then patient may be able to be transferred to a shelter through [facility]. -remote mortgage underwriter spoke with Mary Treadwell over the phone from [facility] about patients care and treatment. -Please contact with any questions.
[2022-05-23] MEDS: FLUDROCORTISONE 0.1 MG TAB PO SCH ×2 (15:24→23:06)
[2022-05-23] MEDS: chlorproMAZINE 25 MG/ML 1 ML AMP IM PRN (18:42)
[2022-05-23] MEDS: MELATONIN 5 MG TABLET PO SCH (19:54)
[2022-05-23] MEDS: clonazePAM 1 MG TAB PO PRN (19:55)
[2022-05-23] MEDS: traZODone HCL 100 MG TAB PO SCH (19:56)
[2022-05-23] MEDS ORDERED: clonazePAM 1 MG TAB PO SCH (21:00)
[2022-05-23] MEDS: DOXEPIN 25 MG CAP PO SCH (23:07)
[2022-05-23] MEDS: diphenhydrAMINE 25 MG CAP PO SCH (23:07)
[2022-05-24] MEDS: VALPROIC ACID ORAL SOLN 250 MG/5 ML CUP PO SCH ×2 (08:06→20:34)
[2022-05-24] MEDS: DOCUSATE 100 MG CAP PO SCH ×2 (08:06→20:32)
[2022-05-24] MEDS: FLUDROCORTISONE 0.1 MG TAB PO SCH ×3 (08:06→20:31)
[2022-05-24] MEDS: LACTULOSE 20 GM/30 ML CUP PO SCH ×2 (08:06→20:12)
[2022-05-24] MEDS: cloNIDine HCL 0.1 MG TAB PO SCH ×2 (08:07→20:31)
[2022-05-24] MEDS: chlorproMAZINE 100 MG TAB PO SCH ×2 (08:07→20:27)
[2022-05-24] MEDS: FAMOTIDINE 20 MG TAB PO SCH ×2 (08:07→20:31)
[2022-05-24] MEDS: lamoTRIgine 100 MG TAB PO SCH ×2 (08:07→20:27)
[2022-05-24] MEDS: clonazePAM 1 MG TAB PO PRN (08:09)
[2022-05-24] MEDS ORDERED: diphenhydrAMINE 50 MG/ML 1 ML VIAL IM PRN (09:06)
[2022-05-24] MEDS ORDERED: clonazePAM 1 MG TAB PO PRN (09:07)
[2022-05-24] MEDS: ZIPRASIDONE 20 MG VIAL IM PRN (09:30)
--- NOTE | 2022-05-24 12:29 | XR ---
EXAMINATION TYPE: XR foot limited LT DATE OF EXAM: 05/24/2022 COMPARISON: NONE HISTORY: 21 year-old male left foot pain TECHNIQUE: 2 views FINDINGS: Type I accessory navicular. A corticated density adjacent to the lateral malleolus. Os trigonum. Sugg estion of some mild anterior soft tissue swelling at the ankle. No acute fracture, subluxation, or di slocation seen. IMPRESSION: Possible bone fragment below the lateral malleolus suggesting sequela of remote injury. There may be some mild anterior soft tissue swelling at the ankle. 2 views without acute osseous abnormality seen.
--- NOTE | 2022-05-24 12:59 | P.PN ---
Progress Note - Text Progress Note Date: 05/24/22 Interval History: Patient was seen today for psychiatric follow-up regarding patient's psychiatric condition. Patients nurse claims that patient has been doing relatively better today. She claims that he was aggressive earlier in the night and had difficulty falling asleep once again she also claims that he needed Geodon prn this morning for agitation as well. She claims that she has been eating fairly well and watching his tablet. Patient apparently has also been favoring his right side of his foot/leg when walking. Seems to be that his sleep has been gradually improving. He has been taking his medications as prescribed. Mental Status Exam: General Appearance: Patient is in his bed. Fair grooming and hygiene, wearing hospital gown Behavior: Laying in his bed, watching tablet. Speech: Nonverbal Mood/Affect: Unable to assess Suicidality/Homicidality: Unable to assess Perceptions: Unable to assess. Not responding to internal stimuli. Though content/process: Unable to assess. He is nonverbal. Memory and concentration: Unable to assess Judgment and insight: Chronically limited IMPRESSIONS: Developmental delay History of cerebral palsy PLAN: -At this time patient DOES meet criteria for inpatient psychiatric admission to a developmental delay psych unit. -Patient DOES NOT have decision making capacity. -Would recommend the following medication changes/additions: increase thorazine 200 mg bid sheduled for agitation/psychosis, doxepin 50 mg daily at bedtime for sleep/mood, Depakene 1000 mg twice a day for mood stabilization/aggression, VPA level on 05/22 - 34.8, Melatonin 10 mg daily at bedtime for sleep. zyprexa 7.5 mg tid IM and PO option prn for severe agitation. benadryl 25 mg qhs for insomnia. trazodone 300 mg daily at bedtime for insomnia, increase lamictal 150 mg bid for mood stablization. klonopin 1 mg bid prn for anxiety/agitation plus 2 mg scheduled QHS for sleep -Continue 1:1 sitter for safety -Communicated plan to patient's nurse -Will continue to follow along. if patient gets stabilized while in the ER then patient may be able to be transferred to a residential through [facility]. -television writer spoke with Mary Treadwell over the phone from [facility] about patients care and treatment. -Please contact with any questions.
[2022-05-24] MEDS: OLANZapine 7.5 MG TAB PO PRN (15:31)
[2022-05-24] MEDS: ACETAMINOPHEN ORAL SUSP 160 MG/5 ML CUP PO PRN (18:29)
[2022-05-24] MEDS: traZODone HCL 100 MG TAB PO SCH (20:25)
[2022-05-24] MEDS: diphenhydrAMINE 25 MG CAP PO SCH (20:26)
[2022-05-24] MEDS: DOXEPIN 25 MG CAP PO SCH (20:29)
[2022-05-24] MEDS: MELATONIN 5 MG TABLET PO SCH (20:30)
[2022-05-24] MEDS: clonazePAM 1 MG TAB PO SCH (20:35)
[2022-05-25] MEDS: ACETAMINOPHEN ORAL SUSP 160 MG/5 ML CUP PO PRN (03:47)
[2022-05-25] MEDS ORDERED: ACETAMINOPHEN TAB 325 MG TAB PO PRN (03:53)
[2022-05-25] MEDS: cloNIDine HCL 0.1 MG TAB PO SCH ×2 (08:40→20:40)
[2022-05-25] MEDS: VALPROIC ACID ORAL SOLN 250 MG/5 ML CUP PO SCH ×2 (08:40→20:39)
[2022-05-25] MEDS: LACTULOSE 20 GM/30 ML CUP PO SCH ×2 (08:40→20:39)
[2022-05-25] MEDS: FLUDROCORTISONE 0.1 MG TAB PO SCH ×3 (08:41→20:40)
[2022-05-25] MEDS: chlorproMAZINE 100 MG TAB PO SCH ×2 (08:41→20:39)
[2022-05-25] MEDS: FAMOTIDINE 20 MG TAB PO SCH ×2 (08:41→20:39)
[2022-05-25] MEDS: DOCUSATE 100 MG CAP PO SCH ×2 (08:41→20:40)
[2022-05-25] MEDS: lamoTRIgine 100 MG TAB PO SCH ×2 (08:42→21:15)
--- NOTE | 2022-05-25 12:24 | P.PN ---
Progress Note - Text Progress Note Date: 05/25/22 Interval History: Patient was seen today for psychiatric follow-up regarding patient's psychiatric condition. Patients nurse claims that patient has been doing relatively better today and did not require any thorazine IM prns yesterday. No significant behavioral aggressions were noted today. Patient did not receive Klonopin last night due to unknown reasons, public relations writer spoke with nurse about ensuring that patient does receive SSI at nighttime to help him maintain sleep. Vision slept for the most part throughout the night. He was seen in his room today sleeping. She claims that she has been eating fairly well and watching his tablet. He has been taking his medications as prescribed. Mental Status Exam: General Appearance: Patient is in his bed. Fair grooming and hygiene, wearing hospital gown Behavior: Laying in his bed, sleeping Speech: Nonverbal Mood/Affect: Unable to assess Suicidality/Homicidality: Unable to assess Perceptions: Unable to assess. Though content/process: Unable to assess. He is nonverbal. Memory and concentration: Unable to assess Judgment and insight: Chronically limited IMPRESSIONS: Developmental delay History of cerebral palsy PLAN: -At this time patient DOES meet criteria for inpatient psychiatric admission to a developmental delay psych unit. -Patient DOES NOT have decision making capacity. -Would recommend the following medication changes/additions: thorazine 200 mg bid sheduled for agitation/psychosis, doxepin 50 mg daily at bedtime for sleep/mood, Depakene 1000 mg twice a day for mood stabilization/aggression, VPA level on 05/22 - 34.8, Melatonin 10 mg daily at bedtime for sleep. zyprexa 7.5 mg tid IM and PO option prn for severe agitation. benadryl 25 mg qhs for insomnia. trazodone 300 mg daily at bedtime for insomnia, lamictal 150 mg bid for mood stablization. klonopin 1 mg bid prn for anxiety/agitation plus 2 mg scheduled QHS for sleep -Continue 1:1 sitter for safety -Communicated plan to patient's nurse -Will continue to follow along on saturday by public relations writer -public relations writer spoke with Mary Treadwell over the phone from [facility] about patients care and treatment. -Please contact with any questions.
[2022-05-25] MEDS: OLANZapine 7.5 MG TAB PO PRN (15:33)
--- NOTE | 2022-05-25 16:39 | XR ---
EXAMINATION TYPE: XR KUB DATE OF EXAM: 05/25/2022 COMPARISON: NONE HISTORY: Pain TECHNIQUE: Single supine KUB image of the abdomen is obtained FINDINGS: Small bowel demonstrates no evidence for dilatation or air fluid levels. Gas and fecal material is seen in non-distended colon. No convincing evidence for pneumoperitoneum. No unusual calcifications. The lung bases are clear. The osseous structures are intact. IMPRESSION: 1. Overall nonobstructive bowel gas pattern. Mild to moderate fecal stasis.
[2022-05-25] MEDS: traZODone HCL 100 MG TAB PO SCH (20:39)
[2022-05-25] MEDS: clonazePAM 1 MG TAB PO SCH (20:40)
[2022-05-25] MEDS: diphenhydrAMINE 25 MG CAP PO SCH (20:40)
[2022-05-25] MEDS: DOXEPIN 25 MG CAP PO SCH (20:40)
[2022-05-25] MEDS: MELATONIN 5 MG TABLET PO SCH (20:40)
[2022-05-25] MEDS: ZIPRASIDONE 20 MG VIAL IM PRN (22:08)
[2022-05-26] MEDS: chlorproMAZINE 25 MG/ML 1 ML AMP IM PRN (01:42)
[2022-05-26] MEDS: OLANZapine 10 MG VIAL IM PRN (01:42)
[2022-05-26] MEDS: chlorproMAZINE 100 MG TAB PO SCH ×2 (08:50→20:44)
[2022-05-26] MEDS: cloNIDine HCL 0.1 MG TAB PO SCH (08:50)
[2022-05-26] MEDS: DOCUSATE 100 MG CAP PO SCH (08:50)
[2022-05-26] MEDS: lamoTRIgine 100 MG TAB PO SCH (08:50)
[2022-05-26] MEDS: FAMOTIDINE 20 MG TAB PO SCH (08:50)
[2022-05-26] MEDS: FLUDROCORTISONE 0.1 MG TAB PO SCH ×3 (08:51→20:43)
[2022-05-26] MEDS: VALPROIC ACID ORAL SOLN 250 MG/5 ML CUP PO SCH (08:51)
[2022-05-26] MEDS: LACTULOSE 20 GM/30 ML CUP PO SCH ×2 (09:16→20:45)
[2022-05-26] MEDS: ZIPRASIDONE 20 MG VIAL IM PRN ×2 (14:22→21:48)
[2022-05-26] MEDS: clonazePAM 1 MG TAB PO SCH (20:44)
[2022-05-26] MEDS: DOXEPIN 25 MG CAP PO SCH (20:45)
[2022-05-26] MEDS ORDERED: LORazepam 2 MG/ML INJ IM STA (22:15)
[2022-05-26] MEDS ORDERED: ZIPRASIDONE 20 MG VIAL IM STA (22:15)
[2022-05-27] MEDS: traZODone HCL 100 MG TAB PO SCH ×2 (01:51→19:47)
[2022-05-27] MEDS: VALPROIC ACID ORAL SOLN 250 MG/5 ML CUP PO SCH ×3 (01:52→19:46)
[2022-05-27] MEDS: diphenhydrAMINE 25 MG CAP PO SCH ×2 (01:52→19:46)
[2022-05-27] MEDS: cloNIDine HCL 0.1 MG TAB PO SCH ×3 (01:52→19:45)
[2022-05-27] MEDS: FAMOTIDINE 20 MG TAB PO SCH ×3 (01:52→19:45)
[2022-05-27] MEDS: OLANZapine 10 MG VIAL IM PRN ×3 (02:51→22:02)
[2022-05-27] MEDS: LACTULOSE 20 GM/30 ML CUP PO SCH ×2 (11:04→19:45)
[2022-05-27] MEDS: DOCUSATE 100 MG CAP PO SCH ×3 (11:05→22:52)
[2022-05-27] MEDS: chlorproMAZINE 100 MG TAB PO SCH ×2 (11:06→19:47)
[2022-05-27] MEDS: lamoTRIgine 100 MG TAB PO SCH ×3 (11:06→22:52)
[2022-05-27] MEDS: FLUDROCORTISONE 0.1 MG TAB PO SCH ×3 (11:06→19:45)
[2022-05-27] MEDS: MELATONIN 5 MG TABLET PO SCH ×2 (19:45→22:52)
[2022-05-27] MEDS: DOXEPIN 25 MG CAP PO SCH (19:46)
[2022-05-27] MEDS: clonazePAM 1 MG TAB PO SCH (22:29)
[2022-05-28] MEDS: ZIPRASIDONE 20 MG VIAL IM PRN (04:40)
[2022-05-28 09:30] VITALS: RESP 18
[2022-05-28] MEDS: LACTULOSE 20 GM/30 ML CUP PO SCH (09:55)
[2022-05-28] MEDS: VALPROIC ACID ORAL SOLN 250 MG/5 ML CUP PO SCH (09:55)
[2022-05-28] MEDS: lamoTRIgine 100 MG TAB PO SCH (09:56)
[2022-05-28] MEDS: FAMOTIDINE 20 MG TAB PO SCH (09:56)
[2022-05-28] MEDS: FLUDROCORTISONE 0.1 MG TAB PO SCH (09:57)
[2022-05-28] MEDS: DOCUSATE 100 MG CAP PO SCH (09:57)
[2022-05-28] MEDS: chlorproMAZINE 100 MG TAB PO SCH (09:57)
[2022-05-28] MEDS: cloNIDine HCL 0.1 MG TAB PO SCH (11:37)
[2022-05-28 11:42] VITALS: BP 135/89; PULSE 100; TEMP 98
[2022-05-28] MEDS ORDERED: OLANZapine 10 MG TAB PO PRN (12:24)
--- NOTE | 2022-05-28 13:07 | P.PN ---
Progress Note - Text Progress Note Date: 05/28/22 Interval History: Patient was seen today for psychiatric follow-up regarding patient's psychiatric condition. Patient was going back and forth in his room watching a tablet and appeared to be fairly happy and singing along with the songs. He appeared to have an improvement in his hygiene and grooming. The patient's nurse states the patient has been doing better and a lot less agitated. He did receive by mouth Zyprexa when necessary which had helped him earlier this morning. Patient appa rently has been getting better sleep however continues to struggle with it at times. A lot less aggression towards staff members. She has been eating and taking his medications as prescribed. Mental Status Exam: General Appearance: Patient is walking around his room watching a tablet. Fair grooming and hygiene, wearing hospital gown Behavior: Walking around watching his tablet. Poor eye contact. Speech: Nonverbal Mood/Affect: Unable to assess Suicidality/Homicidality: Unable to assess Perceptions: Unable to assess. Though content/process: Unable to assess. He is nonverbal. Memory and concentration: Unable to assess Judgment and insight: Chronically limited IMPRESSIONS: Developmental delay History of cerebral palsy PLAN: -Would recommend the following medication changes/additions: thorazine 200 mg bid sheduled for agitation/psychosis, doxepin 50 mg daily at bedtime for sleep/mood, Depakene 1000 mg twice a day for mood stabilization/aggression, VPA level on 05/22 - 34.8, Melatonin 10 mg daily at bedtime for sleep. increase prn zyprexa 10 mg BID PO prn for severe agitation. increase benadryl 50 mg qhs for insomnia. trazodone 300 mg daily at bedtime for insomnia, increase lamictal 200 mg bid for mood stablization. klonopin 2 mg scheduled QHS for sleep. -Communicated plan to patient's nurse and EPS nurse will call in patients meds to [facility] -at this time scientific writer will sign off as patient will be picked up today to go to skilled nursing and will have [facility] follow up. -Please contact with any questions.
[2022-05-28] MEDS ORDERED: diphenhydrAMINE 25 MG CAP PO SCH (21:00)
[2022-05-28] MEDS ORDERED: lamoTRIgine 100 MG TAB PO SCH (21:00)
== END 2022-05-28 12:58 ==
LOC: EC 08:54
DX: Z00.8 Encounter for other general examination (principal); Z88.8 Allergy status to other drugs, medicaments and biological substances; Z20.822 Contact with and (suspected) exposure to COVID-19
CPT/HCPCS: 36415; 93005; 80164; 80053; 85025; 81003; 80306; 87635; 70450; 99285; 96374; 96375 ×4; 96372 ×18; 96376 ×2; J2060 ×3; J1200 ×7; J3230 ×4; J3486 ×9

== ENCOUNTER 2022-05-31 07:46 | Emergency (ER) | payer MEDICARE, OTHER ==
[2022-05-31] MEDS ORDERED: ZIPRASIDONE 20 MG VIAL IM STA (08:08)
[2022-05-31] MEDS ORDERED: clonazePAM 0.5 MG TAB PO STA (09:54)
--- NOTE | 2022-05-31 09:56 | ED ---
General Adult HPI - General Chief complaint: Psychiatric Symptoms Stated complaint: petition Time Seen by Provider: 05/31/22 08:07 Source: police, RN notes reviewed Mode of arrival: ambulatory Limitations: language barrier, altered mental status - History of Present Illness Initial comments: Patient is a 21-year-old male presenting to the emergency department for agitation. Patient is nonverbal and does not provide significant history. Patient was recently at the hospital with similar problems for prolonged period of time. Patient did go to skilled nursing however reportedly was difficult and transferred back to the hospital. - Related Data Home Medications Medication Instructions Recorded Confirmed Fludrocortisone [Florinef] 0.1 mg PO TID@0800,1600,199912/08/21 05/31/22 cloNIDine HCL [Catapres] 0.1 mg PO BID@0800,199912/19/21 05/31/22 Lactulose 10 gm PO BID@0800,199904/23/22 05/31/22 Docusate Sodium [Dok] 100 mg PO BID@0800,199905/31/22 05/31/22 Doxepin HCl 50 mg PO HS@199905/31/22 05/31/22 Melatonin 10 mg PO HS@199905/31/22 05/31/22 OLANZapine [ZyPREXA] 10 mg PO BID PRN 05/31/22 05/31/22 Valproic Acid [Depakene] 1,000 mg PO BID@0800,199905/31/22 05/31/22 chlorproMAZINE HCL [Thorazine] 200 mg PO BID@0800,199905/31/22 05/31/22 diphenhydrAMINE [Benadryl] 50 mg PO HS@199905/31/22 05/31/22 lamoTRIgine [LaMICtal] 200 mg PO BID@0800,199905/31/22 05/31/22 traZODone HCL 300 mg PO HS@199905/31/22 05/31/22 Allergies Allergy/AdvReac Type Severity Reaction Status Date / Time haloperidol [From Haldol] AdvReac Unknown Verified 05/31/22 13:23 lorazepam [From Ativan] AdvReac Confusion Verified 05/31/22 13:23 Review of Systems ROS Statement: Those systems with pertinent positive or pertinent negative responses have been documented in the HPI. ROS Other: All systems not noted in ROS Statement are negative. Limitations: ROS unobtainable due to patients medical condition Past Medical History Additional Past Medical History / Comment(s): autism, cerebral palsy, cognitive delay History of Any Multi-Drug Resistant Organisms: Unobtainable Past Surgical History: Unable to Obtain Past Psychological History: ADD/ADHD Smoking Status: Unknown if ever smoked Past Alcohol Use History: Unable to Obtain Past Drug Use History: Unable to Obtain General Exam Limitations: language barrier, altered mental status General appearance: alert, in no apparent distress Head exam: Present: atraumatic Eye exam: Present: normal appearance Respiratory exam: Present: normal lung sounds bilaterally Cardiovascular Exam: Present: regular rate, normal rhythm Extremities exam: Present: normal inspection Neurological exam: Present: alert, normal gait Psychiatric exam: Present: agitated Skin exam: Present: normal color Course Vital Signs 05/31/22 06/01/22 07:49 05:00 Temperature 97.6 F Pulse Rate 100 Respiratory 18 16 Rate Blood Pressure 121/71 O2 Sat by Pulse 99 Oximetry Medical Decision Making - Medical Decision Making Pending placement with assistance of Adult Protective Services or state help. Disposition Clinical Impression: Adjustment disorder Disposition: OTHER INSTITUTION NOT DEFINED Is patient prescribed a controlled substance at d/c from ED?: No Referrals: Lenny Colindres MD [Primary Care Provider] - 1-2 days - Out of Hospital Transfer - Req. Specs Out of Hospital Transfer - Requested Specifics: Other Non-Acute
[2022-05-31] MEDS: FLUDROCORTISONE 0.1 MG TAB PO SCH ×2 (17:13→19:35)
[2022-05-31] MEDS: chlorproMAZINE 100 MG TAB PO SCH (19:34)
[2022-05-31] MEDS: diphenhydrAMINE 50 MG CAP PO SCH (19:34)
[2022-05-31] MEDS: cloNIDine HCL 0.1 MG TAB PO SCH (19:34)
[2022-05-31] MEDS: DOCUSATE 100 MG CAP PO SCH (19:34)
[2022-05-31] MEDS: DOXEPIN 25 MG CAP PO SCH (19:34)
[2022-05-31] MEDS: LACTULOSE 20 GM/30 ML CUP PO SCH (19:35)
[2022-05-31] MEDS: MELATONIN 5 MG TABLET PO SCH (19:35)
[2022-05-31] MEDS: VALPROIC ACID ORAL SOLN 250 MG/5 ML CUP PO SCH (19:35)
[2022-05-31] MEDS: traZODone HCL 100 MG TAB PO SCH (19:36)
[2022-05-31] MEDS: lamoTRIgine 100 MG TAB PO SCH (19:36)
[2022-06-01] MEDS: DOCUSATE 100 MG CAP PO SCH ×2 (09:33→19:50)
[2022-06-01] MEDS: FLUDROCORTISONE 0.1 MG TAB PO SCH ×3 (09:33→19:33)
[2022-06-01] MEDS: chlorproMAZINE 100 MG TAB PO SCH ×2 (09:33→19:33)
[2022-06-01] MEDS: lamoTRIgine 100 MG TAB PO SCH ×2 (09:33→19:32)
[2022-06-01] MEDS: LACTULOSE 20 GM/30 ML CUP PO SCH ×2 (09:33→19:54)
[2022-06-01] MEDS: cloNIDine HCL 0.1 MG TAB PO SCH ×2 (09:33→19:34)
[2022-06-01] MEDS: VALPROIC ACID ORAL SOLN 250 MG/5 ML CUP PO SCH ×2 (09:34→19:50)
[2022-06-01] MEDS: traZODone HCL 100 MG TAB PO SCH (19:32)
[2022-06-01] MEDS: MELATONIN 5 MG TABLET PO SCH (19:33)
[2022-06-01] MEDS: DOXEPIN 25 MG CAP PO SCH (19:34)
[2022-06-01] MEDS: OLANZapine 10 MG TAB PO PRN (19:35)
[2022-06-01] MEDS: diphenhydrAMINE 50 MG CAP PO SCH (19:35)
[2022-06-02] MEDS: cloNIDine HCL 0.1 MG TAB PO SCH ×2 (06:14→19:31)
[2022-06-02] MEDS: DOCUSATE 100 MG CAP PO SCH ×2 (06:14→19:31)
[2022-06-02] MEDS: chlorproMAZINE 100 MG TAB PO SCH ×2 (06:14→19:32)
[2022-06-02] MEDS: FLUDROCORTISONE 0.1 MG TAB PO SCH ×3 (06:14→19:31)
[2022-06-02] MEDS: LACTULOSE 20 GM/30 ML CUP PO SCH ×2 (06:15→19:35)
[2022-06-02] MEDS: lamoTRIgine 100 MG TAB PO SCH ×2 (06:15→19:31)
[2022-06-02] MEDS: VALPROIC ACID ORAL SOLN 250 MG/5 ML CUP PO SCH ×2 (06:15→19:35)
[2022-06-02] MEDS ORDERED: ZIPRASIDONE 20 MG VIAL IM STA (18:06)
[2022-06-02] MEDS: DOXEPIN 25 MG CAP PO SCH (19:31)
[2022-06-02] MEDS: MELATONIN 5 MG TABLET PO SCH (19:31)
[2022-06-02] MEDS: OLANZapine 10 MG TAB PO PRN (19:31)
[2022-06-02] MEDS: diphenhydrAMINE 50 MG CAP PO SCH (19:31)
[2022-06-02] MEDS: traZODone HCL 100 MG TAB PO SCH (19:33)
[2022-06-03] MEDS: lamoTRIgine 100 MG TAB PO SCH ×2 (08:55→23:00)
[2022-06-03] MEDS: DOCUSATE 100 MG CAP PO SCH ×3 (08:55→23:00)
[2022-06-03] MEDS: FLUDROCORTISONE 0.1 MG TAB PO SCH ×3 (08:55→23:02)
[2022-06-03] MEDS: chlorproMAZINE 100 MG TAB PO SCH ×2 (08:55→23:01)
[2022-06-03] MEDS: cloNIDine HCL 0.1 MG TAB PO SCH ×3 (08:55→23:00)
[2022-06-03] MEDS: LACTULOSE 20 GM/30 ML CUP PO SCH (08:56)
[2022-06-03] MEDS: VALPROIC ACID ORAL SOLN 250 MG/5 ML CUP PO SCH (08:56)
[2022-06-03] MEDS: OLANZapine 10 MG TAB PO PRN (17:32)
[2022-06-03] MEDS ORDERED: ZIPRASIDONE 20 MG VIAL IM STA (18:47)
[2022-06-03] MEDS: traZODone HCL 100 MG TAB PO SCH ×2 (19:15→23:00)
[2022-06-03] MEDS: diphenhydrAMINE 50 MG CAP PO SCH (22:59)
[2022-06-03] MEDS: DOXEPIN 25 MG CAP PO SCH (23:01)
[2022-06-03] MEDS: MELATONIN 5 MG TABLET PO SCH (23:02)
[2022-06-04] MEDS ORDERED: ZIPRASIDONE 20 MG VIAL IM STA ×2 (00:26→15:59)
[2022-06-04] MEDS ORDERED: diphenhydrAMINE 50 MG/ML 1 ML VIAL IM STA ×2 (00:26→19:03)
[2022-06-04] MEDS ORDERED: PHENobarbital SODIUM 130 MG/ML 1 ML VIAL IM STA (00:31)
[2022-06-04] MEDS: VALPROIC ACID ORAL SOLN 250 MG/5 ML CUP PO SCH ×3 (01:12→20:07)
[2022-06-04] MEDS: LACTULOSE 20 GM/30 ML CUP PO SCH ×3 (01:12→20:06)
[2022-06-04] MEDS: cloNIDine HCL 0.1 MG TAB PO SCH ×2 (07:03→20:12)
[2022-06-04] MEDS: chlorproMAZINE 100 MG TAB PO SCH ×2 (07:03→20:12)
[2022-06-04] MEDS: lamoTRIgine 100 MG TAB PO SCH ×2 (07:04→20:09)
[2022-06-04] MEDS: DOCUSATE 100 MG CAP PO SCH ×2 (07:04→20:06)
[2022-06-04] MEDS: FLUDROCORTISONE 0.1 MG TAB PO SCH ×2 (07:04→17:02)
[2022-06-04] MEDS: OLANZapine 10 MG TAB PO PRN (15:07)
[2022-06-04] MEDS ORDERED: diphenhydrAMINE 50 MG/ML 1 ML VIAL IVP STA (19:01)
[2022-06-04] MEDS ORDERED: LORazepam 2 MG/ML INJ IV STA (19:01)
[2022-06-04] MEDS ORDERED: LORazepam 2 MG/ML INJ IM STA (19:03)
[2022-06-04] MEDS: diphenhydrAMINE 50 MG CAP PO SCH (20:06)
[2022-06-04] MEDS: MELATONIN 5 MG TABLET PO SCH (20:10)
[2022-06-04] MEDS: DOXEPIN 25 MG CAP PO SCH (20:11)
[2022-06-05] MEDS: FLUDROCORTISONE 0.1 MG TAB PO SCH ×4 (00:15→21:49)
[2022-06-05] MEDS ORDERED: LORazepam 2 MG/ML INJ IM STA ×2 (10:09→17:18)
[2022-06-05] MEDS ORDERED: ZIPRASIDONE 20 MG VIAL IM STA ×2 (10:09→22:47)
[2022-06-05] MEDS: lamoTRIgine 100 MG TAB PO SCH ×2 (11:06→21:21)
[2022-06-05] MEDS: chlorproMAZINE 100 MG TAB PO SCH ×2 (11:06→21:21)
[2022-06-05] MEDS: VALPROIC ACID ORAL SOLN 250 MG/5 ML CUP PO SCH ×2 (11:06→21:20)
[2022-06-05] MEDS: DOCUSATE 100 MG CAP PO SCH ×2 (11:07→21:21)
[2022-06-05] MEDS: cloNIDine HCL 0.1 MG TAB PO SCH ×2 (11:07→21:48)
[2022-06-05] MEDS: LACTULOSE 20 GM/30 ML CUP PO SCH ×2 (11:07→21:20)
--- NOTE | 2022-06-05 11:45 | ED ---
Medical Decision Making - Lab Data Lab Results 06/04/22 Range/Units 20:54 Coronavirus (PCR) Not Detected (Not Detectd) Disposition Clinical Impression: Encounter for psychiatric assessment Disposition: HOME SELF-CARE Condition: Fair Is patient prescribed a controlled substance at d/c from ED?: No Referrals: Lenny Colindres MD [Primary Care Provider] - 1-2 days Procedures - Restraint - Face to Face Restraint Occurrence 1 Patient's Immediate Situation: Endangers others' safety, Endangers staff safety Patient's Reaction to the Intervention: Aggressive, Resistive to care Patient's Medical & Behavioral Condition: Agitated, Bizarre behavior Need to Continue or Terminate Restraint or Seclusion: Continue Face to Face Eval of Restraint Date: 06/05/22 Face to Face Eval of Restraint Time: 10:18
[2022-06-05] MEDS: OLANZapine 10 MG TAB PO PRN ×2 (16:11→21:50)
--- NOTE | 2022-06-05 18:29 | ED ---
Medical Decision Making - Lab Data Lab Results 06/04/22 Range/Units 20:54 Coronavirus (PCR) Not Detected (Not Detectd) Disposition Clinical Impression: Adjustment disorder Disposition: HOME SELF-CARE Is patient prescribed a controlled substance at d/c from ED?: No Referrals: Lenny Colindres MD [Primary Care Provider] - 1-2 days Procedures - Restraint - Face to Face Restraint Occurrence 1 Patient's Immediate Situation: Endangers self safety, Endangers others' safety, Endangers staff safety Patient's Reaction to the Intervention: Uncooperative, Restless Patient's Medical & Behavioral Condition: Awake, Alert Need to Continue or Terminate Restraint or Seclusion: Continue Face to Face Eval of Restraint Date: 06/05/22 Face to Face Eval of Restraint Time: 17:51 Restraint Occurrence 2 Patient's Immediate Situation: Endangers self safety, Endangers others' safety, Endangers staff safety Patient's Reaction to the Intervention: Uncooperative, Aggressive, Combative Patient's Medical & Behavioral Condition: Agitated Need to Continue or Terminate Restraint or Seclusion: Continue Face to Face Eval of Restraint Date: 06/06/22 Face to Face Eval of Restraint Time: 19:16
[2022-06-05] MEDS: MELATONIN 5 MG TABLET PO SCH (21:20)
[2022-06-05] MEDS: diphenhydrAMINE 50 MG CAP PO SCH (21:21)
[2022-06-05] MEDS: traZODone HCL 100 MG TAB PO SCH (21:21)
[2022-06-05] MEDS: DOXEPIN 25 MG CAP PO SCH (21:21)
[2022-06-05] MEDS ORDERED: diphenhydrAMINE 50 MG/ML 1 ML VIAL IM STA (22:49)
--- NOTE | 2022-06-06 06:16 | ED ---
Medical Decision Making - Lab Data Lab Results 06/04/22 Range/Units 20:54 Coronavirus (PCR) Not Detected (Not Detectd) Disposition <Matthew Shankar - Last Filed: 06/06/22 06:15> Is patient prescribed a controlled substance at d/c from ED?: No <Brett Hart - Last Filed: 06/08/22 21:03> Clinical Impression: Adjustment disorder Disposition: HOME SELF-CARE Referrals: Lenny Colindres MD [Primary Care Provider] - 1-2 days Procedures - Restraint - Face to Face Restraint Occurrence 1 Patient's Immediate Situation: Endangers self safety, Endangers others' safety Patient's Reaction to the Intervention: Uncooperative Patient's Medical & Behavioral Condition: Anxious Need to Continue or Terminate Restraint or Seclusion: Continue Face to Face Eval of Restraint Date: 06/06/22 Face to Face Eval of Restraint Time: 06:10 <Matthew Shankar - Last Filed: 06/06/22 06:15> - Restraint - Face to Face Restraint Occurrence 2 Patient's Immediate Situation: Endangers self safety, Endangers others' safety, Endangers staff safety, Violent behavior Patient's Reaction to the Intervention: Uncooperative Patient's Medical & Behavioral Condition: Awake Need to Continue or Terminate Restraint or Seclusion: Continue Face to Face Eval of Restraint Date: 06/07/22 Face to Face Eval of Restraint Time: 19:55 <Brett Hart - Last Filed: 06/08/22 21:03>
[2022-06-06] MEDS: chlorproMAZINE 100 MG TAB PO SCH (10:20)
[2022-06-06] MEDS: DOCUSATE 100 MG CAP PO SCH (10:20)
[2022-06-06] MEDS: cloNIDine HCL 0.1 MG TAB PO SCH (10:20)
[2022-06-06] MEDS: lamoTRIgine 100 MG TAB PO SCH (10:21)
[2022-06-06] MEDS: VALPROIC ACID ORAL SOLN 250 MG/5 ML CUP PO SCH (10:21)
[2022-06-06] MEDS: FLUDROCORTISONE 0.1 MG TAB PO SCH ×2 (10:21→16:59)
[2022-06-06] MEDS: LACTULOSE 20 GM/30 ML CUP PO SCH (10:21)
[2022-06-06] MEDS ORDERED: ZIPRASIDONE 20 MG VIAL IM STA ×2 (11:11→19:27)
[2022-06-06] MEDS: OLANZapine 10 MG TAB PO PRN ×2 (14:51→16:23)
[2022-06-06] MEDS ORDERED: LORazepam 2 MG/ML INJ IM STA (19:28)
[2022-06-07] MEDS: DOXEPIN 25 MG CAP PO SCH (03:57)
[2022-06-07] MEDS: DOCUSATE 100 MG CAP PO SCH ×3 (03:59→20:15)
[2022-06-07] MEDS: lamoTRIgine 100 MG TAB PO SCH ×3 (04:00→20:14)
[2022-06-07] MEDS: chlorproMAZINE 100 MG TAB PO SCH ×4 (04:01→20:15)
[2022-06-07] MEDS: cloNIDine HCL 0.1 MG TAB PO SCH ×3 (04:02→20:15)
[2022-06-07] MEDS: traZODone HCL 100 MG TAB PO SCH ×2 (04:03→20:14)
[2022-06-07] MEDS: MELATONIN 5 MG TABLET PO SCH ×2 (04:03→20:13)
[2022-06-07] MEDS: diphenhydrAMINE 50 MG CAP PO SCH ×2 (04:05→20:14)
[2022-06-07] MEDS: VALPROIC ACID ORAL SOLN 250 MG/5 ML CUP PO SCH ×3 (04:07→20:13)
[2022-06-07] MEDS: LACTULOSE 20 GM/30 ML CUP PO SCH ×3 (04:08→20:13)
[2022-06-07] MEDS: FLUDROCORTISONE 0.1 MG TAB PO SCH ×4 (04:47→15:58)
[2022-06-07] MEDS ORDERED: OLANZapine 10 MG VIAL IM STA (05:05)
[2022-06-07] MEDS ORDERED: ZIPRASIDONE 20 MG VIAL IM PRN (11:54)
--- NOTE | 2022-06-07 12:20 | P.CN ---
Psychiatric Consult - . Consult date: 06/07/22 Consult:: 06/07/22 11:57 IDENTIFYING DATA: This patient is a 21-year-old male with a history of CP and developmental delay who was previously at a [facility] REASON FOR REFERRAL: Psychiatry was consulted for psychiatric care. HISTORY OF PRESENT ILLNESS: The patient presented to the hospital as she was brought in by a [facility]. Apparently patient was too agitated and aggressive at the [facility] and they refused to take him back. Patient was previously in the hospital and in the ER for approximately one month prior to going to this [facility] for 2 or 3 days. Patient has a significant history of cerebral palsy and developmental delay with aggressive behaviors. Patient was seen today in his room and was watching the tablet. Patient was nonverbal and appeared to be making humming noises. He apparently has been having poor sleep, aggression towards his staff members and also the sitters. Patient was nonverbal and did not follow any commands. Patient's nurse claims that patient has been aggressive at times however has been taking his medications. Patient was not able to provide any social history and any history in general. PAST PSYCHIATRIC HISTORY: Patient has a a history of developmental delay. Patient is currently on Thorazine, Sinequan and Depakene, Lamictal, trazodone and Benadryl. PAST MEDICAL HISTORY: As per medicine H&P ALLERGIES: as per EMR. CHEMICAL DEPENDENCY HISTORY: Unable to assess FAMILY PSYCHIATRIC/SUBSTANCE USE HISTORY: Unable to assess SOCIAL HISTORY: Patient came from a [facility]. He was unable to give any information. MENTAL STATUS EXAM: General Appearance: Patient appears to be walking around his room, laying in bed watching a video on his tablet, not following any commands. Fair grooming and hygiene, wearing hospital gown with poor eye contact. Behavior: walking around, watching his tablet. Speech: Nonverbal Mood/Affect: Unable to assess Suicidality/Homicidality: Unable to assess Perceptions: Unable to assess. Not responding to internal stimuli. Though content/process: Unable to assess. He is nonverbal. Memory and concentration: Unable to assess Judgment and insight: Chronically limited IMPRESSIONS: Developmental delay History of cerebral palsy PLAN: -At this time patient DOES meet criteria for inpatient psychiatric admission to a developmental delay psych unit. Please continue on with trying to find patient a bed. -Patient DOES NOT have decision making capacity. -Would recommend the following medication changes/additions: Continue Sinequan 50 mg daily at bedtime for sleep/mood, Depakene 1000 mg twice a day for mood stabilization/aggression, Melatonin 10 mg daily at bedtime for sleep. increase thorazine 200 mg daily + 100 mg at 12pm +200 mg qhs. lamictal 200 mg bid. added klonopin 1 mg bid for agitation. trazodone 300 mg qhs for insomnia. benadryl 50 mg qhs for sleep. zyprexa and geodon prn IM and PO option for severe agitation. -Continue 1:1 sitter for safety -Communicated plan to patient's nurse -Will continue to follow along -Please contact with any questions 06/07/22 12:13
[2022-06-07] MEDS: clonazePAM 1 MG TAB PO SCH ×2 (12:32→20:15)
[2022-06-07] MEDS ORDERED: chlorproMAZINE 25 MG TAB PO SCH (13:00)
[2022-06-08] MEDS ORDERED: OLANZapine 10 MG TAB PO PRN (06:37)
[2022-06-08] MEDS ORDERED: ZIPRASIDONE 20 MG VIAL IM PRN (06:38)
[2022-06-08] MEDS ORDERED: cloNIDine HCL 0.1 MG TAB PO SCH (08:00)
[2022-06-08] MEDS ORDERED: DOCUSATE 100 MG CAP PO SCH (08:00)
[2022-06-08] MEDS ORDERED: FLUDROCORTISONE 0.1 MG TAB PO SCH (08:00)
[2022-06-08] MEDS ORDERED: clonazePAM 1 MG TAB PO SCH (09:00)
[2022-06-08] MEDS: chlorproMAZINE 100 MG TAB PO SCH (10:53)
[2022-06-08] MEDS: LACTULOSE 20 GM/30 ML CUP PO SCH (10:54)
[2022-06-08] MEDS: lamoTRIgine 100 MG TAB PO SCH (10:54)
[2022-06-08] MEDS: VALPROIC ACID ORAL SOLN 250 MG/5 ML CUP PO SCH (10:54)
--- NOTE | 2022-06-08 11:30 | P.PN ---
Progress Note - Text Progress Note Date: 06/08/22 Interval History: Patient was seen on his tablet walking around his room. Patient was seen today for psychiatric follow-up. Patient continues to be nonverbal and mainly interested in watching his tablet. Nursing staff and also sitter's claim that patient has been better today and eat his food and also took his medications. He states that he slept a bit better last night. He has not been aggressive today. Mental Status Exam: General Appearance: Patient appears to be walking around his room, laying in bed watching a video on his tablet. Fair grooming and hygiene, wearing hospital gown with poor eye contact. Behavior: walking around, watching his tablet. Speech: Nonverbal Mood/Affect: Unable to assess Suicidality/Homicidality: Unable to assess Perceptions: Unable to assess. Not responding to internal stimuli. Though content/process: Unable to assess. He is nonverbal. Memory and concentration: Unable to assess Judgment and insight: Chronically limited IMPRESSIONS: Developmental delay History of cerebral palsy PLAN: -At this time patient is clear from a psychiatric standpoint to be discharged to a shelter with continued psych care and follow up. -Patient DOES NOT have decision making capacity. -Would recommend the following medication changes/additions: Continue Sinequan 50 mg daily at bedtime for sleep/mood, Depakene 1000 mg twice a day for mood stabilization/aggression, Melatonin 10 mg daily at bedtime for sleep. increase thorazine 200 mg daily + 200 mg at 12pm +200 mg qhs. lamictal 200 mg bid. klonopin 1 mg bid for agitation. trazodone 300 mg qhs for insomnia. benadryl 50 mg qhs for sleep. please give zyprexa 10 mg bid prn for agitationn. -Continue 1:1 sitter for safety -Communicated plan to patient's nurse -at this time will sign off -Please contact with any questions
[2022-06-08] MEDS ORDERED: chlorproMAZINE 100 MG TAB PO SCH (13:00)
[2022-06-08 14:59] VITALS: BP 118/74; PULSE 110; RESP 18; TEMP 97.7
[2022-06-08] MEDS ORDERED: diphenhydrAMINE 50 MG CAP PO SCH (20:00)
== END 2022-06-08 14:59 | disposition home or self-care (01) ==
LOC: EC 07:46
DX: F43.20 Adjustment disorder, unspecified (principal); F90.9 Attention-deficit hyperactivity disorder, unspecified type; R41.82 Altered mental status, unspecified; Z88.8 Allergy status to other drugs, medicaments and biological substances; Z20.822 Contact with and (suspected) exposure to COVID-19; Z79.899 Other long term (current) drug therapy
CPT/HCPCS: 99285; 96372 ×8; 36415; 80164; J2060 ×3; J1200 ×2; J2560; J3486 ×8

== ENCOUNTER 2023-01-27 08:31 | Emergency (ER) | payer MEDICARE, OTHER ==
[2023-01-27 08:43] VITALS: RESP 18; TEMP 97.8
--- NOTE | 2023-01-27 08:59 | ED ---
General Adult HPI - General Chief complaint: Seizure Stated complaint: Seizure Time Seen by Provider: 01/27/23 08:39 Source: EMS Mode of arrival: EMS Limitations: altered mental status - History of Present Illness Initial comments: Dictation was produced using [employer] dictation software. please excuse any grammatical, word or spelling errors. Chief Complaint: 22-year-old male well known to our emergency R presents for seizure History of Present Illness: 22-year-old male he has past medical history of autism, cerebral palsy, mental debility and seizures. History of of present illness obtained from [facility] staff member states that at around 8:00 AM he had a witnessed seizure that lasted for a minute. Apparently was associated with violent tonic-clonic activity. He is postictal for several minutes when shortly after he had a second seizure. Patient is brought to the emergency department. correction staff states that he was postictal. Since being in the ER seems to have returned back to baseline. The ROS documented in this emergency department record has been reviewed and confirmed by me. Those systems with pertinent positive or negative responses have been documented in the HPI. All other systems are other negative and/or noncontributory. - Related Data Home Medications Medication Instructions Recorded Confirmed Fludrocortisone [Florinef] 0.1 mg PO TID@0800,1600,199912/08/21 05/31/22 cloNIDine HCL [Catapres] 0.1 mg PO BID@0800,199912/19/21 05/31/22 Lactulose 10 gm PO BID@0800,199904/23/22 05/31/22 Docusate Sodium [Dok] 100 mg PO BID@0800,199905/31/22 05/31/22 Doxepin HCl 50 mg PO HS@199905/31/22 05/31/22 Melatonin 10 mg PO HS@199905/31/22 05/31/22 OLANZapine [ZyPREXA] 10 mg PO BID PRN 05/31/22 05/31/22 Valproic Acid [Depakene] 1,000 mg PO BID@0800,199905/31/22 05/31/22 chlorproMAZINE HCL [Thorazine] 200 mg PO BID@0800,199905/31/22 05/31/22 diphenhydrAMINE [Benadryl] 50 mg PO HS@199905/31/22 05/31/22 lamoTRIgine [LaMICtal] 200 mg PO BID@0800,199905/31/22 05/31/22 traZODone HCL 300 mg PO HS@199905/31/22 05/31/22 Previous Rx's Medication Instructions Recorded lamoTRIgine [LaMICtal] 225 mg PO BID 12 Days #24 tablet 01/27/23 Allergies Allergy/AdvReac Type Severity Reaction Status Date / Time haloperidol [From Haldol] AdvReac Unknown Verified 01/27/23 08:44 lorazepam [From Ativan] AdvReac Confusion Verified 01/27/23 08:44 Review of Systems ROS Statement: Those systems with pertinent positive or pertinent negative responses have been documented in the HPI. ROS Other: All systems not noted in ROS Statement are negative. Past Medical History Additional Past Medical History / Comment(s): autism, cerebral palsy, cognitive delay History of Any Multi-Drug Resistant Organisms: Unobtainable Past Surgical History: Unable to Obtain Past Psychological History: ADD/ADHD Smoking Status: Unknown if ever smoked Past Alcohol Use History: Unable to Obtain Past Drug Use History: Unable to Obtain General Exam - General Exam Comments Initial Comments: PHYSICAL EXAM: General Impression: Alert, not in acute distress HEENT: Normocephalic atraumatic, extra-ocular movements intact, pupils equal and reactive to light bilaterally, mucous membranes moist. Cardiovascular: Heart regular rate and rhythm Chest: Able to complete full sentences, no retractions, no tachypnea Abdomen: abdomen soft, non-tender, non-distended, no organomegaly Musculoskeletal: Pulses present and equal in all extremities, no peripheral edema Motor: no focal deficits noted Neurological: CN II-XII grossly intact, no focal motor or sensory deficits noted Skin: Intact with no visualized rashes Psych: Normal affect and mood Limitations: altered mental status Course Vital Signs 01/27/23 08:34 Temperature 97.8 F Pulse Rate 97 Respiratory 18 Rate Blood Pressure 103/60 O2 Sat by Pulse 99 Oximetry - Reevaluation(s) Reevaluation #1: 01/27/23 11:06 Case is discussed with on-call neurology regarding patient's clinical presentation, laboratory evaluation levels and antiseizure medications. Dr. Kwesi Barcenas requested patients limits increased by 25 mg. EKG Findings - EKG Comments: EKG Findings:: My EKG interpretation: Ventricular rate 94, sinus rhythm, QRS 104, QTc 380. No TN prolongation, no QTC prolongation, no ST or T-wave changes noted. Overall, this EKG is unremarkable Medical Decision Making - Medical Decision Making Was pt. sent in by a medical professional or institution (, [facility], D[employer] GRINDER, urgent care, hospital, or [facility]...) When possible be specific @ -correction Did you speak to anyone other than the patient for history (EMS, parent, family, police, friend...)? What history was obtained from this source @ -History of present also obtained from [facility] staff member Did you review nursing and triage notes (agree or disagree)? Why? @ -I reviewed and agree with nursing and triage notes Were old charts reviewed (outside hosp., previous admission, EMS record, old EKG, old radiological studies, urgent care reports/EKG's, [facility] records)? Report findings @ -No old charts were reviewed Differential Diagnosis (chest pain, altered mental status, abdominal pain women, abdominal pain men, vaginal bleeding, musculoskeletal, weakness, fever, dyspnea, syncope, headache, dizziness, GI bleed, back pain, seizure, CVA, palpatations, mental health)? @ -Differential Seizure: Recurrent seizure disorder, febrile seizure, alcohol withdrawal, stimulants, me ningitis, encephalitis, intercranial hemorrhage, intracranial tumor, stroke, eclampsia, thyrotoxicosis, hypocalcemia, hyponatremia, hypernatremia, hypomagnesemia, psychogenic, this is not meant to be an all-inclusive list. EKG interpreted by me (3pts min.). @ -see above X-rays interpreted by me (1pt min.). @ -None done CT interpreted by me (1pt min.). @ -None done U/S interpreted by me (1pt. min.). @ -None done What testing was considered but not performed or refused? (CT, X-rays, U/S, labs)? Why? @ -None What meds were considered but not given or refused? Why? @ -None Did you discuss the management of the patient with other professionals (prof darian i.e. , [employer], D[employer] GRINDER, lab, RT, psych nurse, social science professor, quality improvement specialist, teacher, environmental technical officer, complex case manager)? Give summary @ -No Was smoking cessation discussed for >3mins.? @ -No Was critical care preformed (if so, how long)? @ -No Were there social determinants of health that impacted care today? How? (Homelessness, low income, unemployed, alcoholism, drug addiction, transportat ion, low edu. Level, literacy, decrease access to med. care, penitentiary, rehab)? @ -No Was there de-escalation of care discussed even if they declined (Discuss DNR or withdrawal of care, Hospice)? DNR status @ -No What co-morbidities impacted this encounter? (DM, HTN, Smoking, COPD, CAD, Cancer, CVA, ARF, Chemo, Hep., AIDS, mental health diagnosis, sleep apnea, morbid obesity)? @ -None Was patient admitted / discharged? Hospital course, mention meds given and route, prescriptions, significant lab abnormalities, going to OR and other pertinent info. @ -22-year-old male past medical history of seizure disorder presents after having had a seizure today at the [facility]. Labs are unremarkable. Valproic acid is subtherapeutic. Patient observed in emergency department back to baseline. Case discussed with neurology recommended increasing his Lamictal dose and follow up with outpatient neurologist. Plan was discussed with [facility] staff member at the bedside is agreeable with discharge. She is told to keep a close eye on if he is compliant with all his medications Undiagnosed new problem with uncertain prognosis? @ -No Drug Therapy requiring intensive monitoring for toxicity (Heparin, Nitro, Ins ulin, Cardizem)? @ -No Were any procedures done? @ -No Diagnosis/symptom? Acute, or Chronic, or Acute on Chronic? Uncomplicated (without systemic symptoms) or Complicated (systemic symptoms)? @ -. Seizure Side effects of treatment? @ -No Exacerbation, Progression, or Severe Exacerbation? @ -No Poses a threat to life or bodily function? How? (Chest pain, USA, [place], pneumonia, PE, COPD, DKA, ARF, appy, cholecystitis, CVA, Diverticulitis, Homicidal, Suicidal, threat to staff... and all critical care pts) @ -yes - Lab Data Result diagrams: 01/27/23 09:03 01/27/23 09:03 Lab Results 01/27/23 01/27/23 01/27/23 Range/Units 09:03 09:03 09:03 WBC 6.5 (3.8-10.6) k/uL RBC 4.11 L (4.30-5.90) m/uL Hgb 12.6 L (13.0-17.5) gm/dL Hct 38.2 L (39.0-53.0) % MCV 93.0 (80.0-100.0) fL MCH 30.8 (25.0-35.0) pg MCHC 33.1 (31.0-37.0) g/dL RDW 13.4 (11.5-15.5) % Plt Count 192 (150-450) k/uL MPV 8.1 Neutrophils % 67 % Lymphocytes % 20 % Monocytes % 5 % Eosinophils % 5 % Basophils % 1 % Neutrophils # 4.4 (1.3-7.7) k/uL Lymphocytes # 1.3 (1.0-4.8) k/uL Monocytes # 0.4 (0-1.0) k/uL Eosinophils # 0.3 (0-0.7) k/uL Basophils # 0.0 (0-0.2) k/uL Sodium 137 (137-145) mmol/L Potassium 4.2 (3.5-5.1) mmol/L Chloride 101 (98-107) mmol/L Carbon Dioxide 29 (22-30) mmol/L Anion Gap 7 mmol/L BUN 12 (9-20) mg/dL Creatinine 0.49 L (0.66-1.25) mg/dL Est GFR (CKD-EPI)AfAm >90 (>60 ml/min/1.73 sqM) Est GFR (CKD-EPI)NonAf >90 (>60 ml/min/1.73 sqM) Glucose 106 H (74-99) mg/dL Plasma Lactic Acid Mino 1.0 (0.7-2.0) mmol/L Calcium 9.1 (8.4-10.2) mg/dL Magnesium 1.9 (1.6-2.3) mg/dL Total Bilirubin 0.2 (0.2-1.3) mg/dL AST 26 (17-59) U/L ALT 26 (4-49) U/L Alkaline Phosphatase 64 (38-126) U/L Total Protein 6.0 L (6.3-8.2) g/dL Albumin 3.6 (3.5-5.0) g/dL Valproic Acid 30.9 ug/mL Disposition Clinical Impression: Seizure Disposition: HOME SELF-CARE Condition: Good Instructions (If sedation given, give patient instructions): Recurrent Seizures in Adults (ED) Additional Instructions: 1. Increased dosage of Lamictal to 225 mg by mouth twice a day 2. Follow-up with outpatient neurologist for outpatient management of seizure disorder 3. Be mindful if patient may be missing doses of his medications Prescriptions: lamoTRIgine [LaMICtal] 225 mg PO BID 12 Days #24 tablet Is patient prescribed a controlled substance at d/c from ED?: No Referrals: Lenny Colindres MD [REFERRING] - 1-2 days Time of Disposition: 11:21
[2023-01-27 09:23] LABS: Basophils % (A) 1 %; Eosinophils # (A) 0.3 k/uL (0-0.7); Eosinophils % (A) 5 %; HCT 38.2 % (39.0-53.0); HGB 12.6 gm/dL (13.0-17.5); Lymphocytes # (A) 1.3 k/uL (1.0-4.8); Lymphocytes % (A) 20 %; MCH 30.8 pg (25.0-35.0); MCHC 33.1 g/dL (31.0-37.0); Mean Platelet Volume 8.1; Monocytes # (A) 0.4 k/uL (0-1.0); Monocytes % (A) 5 %; Neutrophils # (A) 4.4 k/uL (1.3-7.7); Neutrophils % (A) 67 %; Platelet Count 192 k/uL (150-450); RBC 4.11 m/uL (4.30-5.90); RDW 13.4 % (11.5-15.5); WBC 6.5 k/uL (3.8-10.6)
[2023-01-27 10:17] LABS: ALT 26 U/L (4-49); AST 26 U/L (17-59); African American GFR (CKD) >90 (>60 ml/min/1.73 sqM); Albumin 3.6 g/dL (3.5-5.0); Alkaline Phosphatase 64 U/L (38-126); Anion Gap 7 mmol/L; Blood Urea Nitrogen 12 mg/dL (9-20); Calcium 9.1 mg/dL (8.4-10.2); Carbon Dioxide 29 mmol/L (22-30); Chloride 101 mmol/L (98-107); Glucose 106 mg/dL (74-99); Magnesium 1.9 mg/dL (1.6-2.3); Non-African American GFR(CKD) >90 (>60 ml/min/1.73 sqM); Potassium 4.2 mmol/L (3.5-5.1); Sodium 137 mmol/L (137-145); Total Bilirubin 0.2 mg/dL (0.2-1.3)
[2023-01-27 10:23] LABS: Valproic Acid (Depakene) 30.9 ug/mL
[2023-01-27 11:30] VITALS: BP 127/87; PULSE 72
== END 2023-01-27 11:57 | disposition home or self-care (01) ==
LOC: EC 08:31
DX: R56.9 Unspecified convulsions (principal); F90.9 Attention-deficit hyperactivity disorder, unspecified type; Z79.899 Other long term (current) drug therapy; Z88.8 Allergy status to other drugs, medicaments and biological substances
CPT/HCPCS: 36415; 80053; 80164; 80175; 83605; 83735; 85025; 93005; 99285

== ENCOUNTER 2023-03-10 14:19 | Emergency (ER) | payer MEDICARE, OTHER ==
[2023-03-10 14:32] VITALS: TEMP 97.6
[2023-03-10] MEDS ORDERED: LIDOCAINE/EPINEPHR/TETRACAINE 5 ML BOTTLE TOPICAL ONE (15:03)
[2023-03-10] MEDS ORDERED: DIPH,PERTUS(ACELL)TETVAC-LF 0.5 ML VIAL IM ONE (15:14)
--- NOTE | 2023-03-10 15:14 | ED ---
Fall HPI <Axel Sosa - Last Filed: 03/10/23 19:25> - General Source: RN notes reviewed, Caregiver Mode of arrival: wheelchair - History of Present Illness When Fall Occurred: just prior to arrival <Yris Tavarez - Last Filed: 03/10/23 20:15> - General Chief Complaint: Fall Stated Complaint: fall Time Seen by Provider: 03/10/23 14:42 - History of Present Illness Initial Comments: Patient is a 22-year-old male well known to the emergency room who presents after a fall onto the cement earlier today. His caregivers report he was walking and stumbled causing him to fall to the ground. He has frequent falls with a healing abrasion to his right knee. His caregivers report that he is exhibiting some abnormal behaviors for him including chewing on his lap belt for his wheelchair and covering his ears continuously as if he had a headache. Unfortunately he is minimally verbal with minimal ability to follow commands or give appropriate verbal responses. He has an abrasion to the central aspect of his forehead along with a laceration to his right eye. He has abrasions to both knees the abrasion; abrasion to his left knee is now. Caregivers deny any range of motion impairments beyond normal range of motion impairments due to his cerebral palsy and developmental delay. In addition to his developmental delay and cerebral palsy. (Yris Tavarez) - Related Data Home Medications Medication Instructions Recorded Confirmed Fludrocortisone [Florinef] 0.1 mg PO TID@0800,1600,199912/08/21 05/31/22 cloNIDine HCL [Catapres] 0.1 mg PO BID@0800,199912/19/21 05/31/22 Lactulose 10 gm PO BID@0800,199904/23/22 05/31/22 Docusate Sodium [Dok] 100 mg PO BID@0800,199905/31/22 05/31/22 Doxepin HCl 50 mg PO HS@199905/31/22 05/31/22 Melatonin 10 mg PO HS@199905/31/22 05/31/22 OLANZapine [ZyPREXA] 10 mg PO BID PRN 05/31/22 05/31/22 Valproic Acid [Depakene] 1,000 mg PO BID@0800,199905/31/22 05/31/22 chlorproMAZINE HCL [Thorazine] 200 mg PO BID@0800,199905/31/22 05/31/22 diphenhydrAMINE [Benadryl] 50 mg PO HS@199905/31/22 05/31/22 lamoTRIgine [LaMICtal] 200 mg PO BID@0800,199905/31/22 05/31/22 traZODone HCL 300 mg PO HS@199905/31/22 05/31/22 Previous Rx's Medication Instructions Recorded lamoTRIgine [LaMICtal] 225 mg PO BID 12 Days #24 tablet 01/27/23 Allergies Allergy/AdvReac Type Severity Reaction Status Date / Time haloperidol [From Haldol] AdvReac Unknown Verified 03/10/23 14:32 lorazepam [From Ativan] AdvReac Confusion Verified 03/10/23 14:32 Review of Systems ROS Other: All systems not noted in ROS Statement are negative. <Axel Sosa - Last Filed: 03/10/23 19:25> ROS Other: All systems not noted in ROS Statement are negative. <Yris Tavarez - Last Filed: 03/10/23 20:15> ROS Statement: Those systems with pertinent positive or pertinent negative responses have been documented in the HPI. Past Medical History Additional Past Medical History / Comment(s): autism, cerebral palsy, cognitive delay History of Any Multi-Drug Resistant Organisms: Unobtainable Past Surgical History: Unable to Obtain Past Psychological History: ADD/ADHD Smoking Status: Unknown if ever smoked Past Alcohol Use History: Unable to Obtain Past Drug Use History: Unable to Obtain <Yris Tavarez - Last Filed: 03/10/23 20:15> General Exam Limitations: altered mental status General appearance: alert, in no apparent distress Head exam: Present: normocephalic Expanded Head exam: Present: laceration (right eye brow 2 cm), abrasion (center forehead oval 2.5 cm max diameter), contusion. Absent: hematoma Eye exam: Present: normal appearance, PERRL, periorbital swelling (right trace upper), periorbital tenderness (upper right). Absent: scleral icterus, conjunctival injection ENT exam: Present: mucous membranes moist, normal external ear exam Neck exam: Present: normal inspection. Absent: tenderness Respiratory exam: Present: normal lung sounds bilaterally. Absent: respiratory distress, wheezes, rales, rhonchi, stridor Cardiovascular Exam: Present: regular rate, normal rhythm, normal heart sounds. Absent: systolic murmur, diastolic murmur, rubs, gallop, clicks GI/Abdominal exam: Present: soft, normal bowel sounds. Absent: distended, tenderness, guarding, rebound, rigid Extremities exam: Present: other (Range of motion bilateral lower extremities limited due to cerebral palsy. Abrasions bilateral knee and left knee healing right knee acute). Absent: pedal edema, joint swelling Back exam: Present: normal inspection Neurological exam: Present: alert, abnormal gait Psychiatric exam: Present: agitated, anxious Skin exam: Present: abrasion (as above ), other (laceration) <Yris Tavarez - Last Filed: 03/10/23 20:15> Course Vital Signs 03/10/23 03/10/23 03/10/23 14:26 15:42 16:40 Temperature 97.6 F Pulse Rate 110 H 102 H 110 H Respiratory 20 18 18 Rate Blood Pressure 104/61 104/62 112/67 O2 Sat by Pulse 100 96 98 Oximetry 03/10/23 03/10/23 03/10/23 16:47 16:52 16:57 Temperature Pulse Rate 107 H 110 H 109 H Respiratory 18 18 18 Rate Blood Pressure 116/78 117/78 O2 Sat by Pulse 98 98 96 Oximetry 03/10/23 03/10/23 03/10/23 17:02 17:07 17:13 Temperature Pulse Rate 110 H 109 H 111 H Respiratory 18 18 18 Rate Blood Pressure 124/80 128/81 135/86 O2 Sat by Pulse 96 96 95 Oximetry 03/10/23 03/10/23 17:28 18:00 Temperature Pulse Rate 117 H 98 Respiratory 18 18 Rate Blood Pressure 132/82 108/66 O2 Sat by Pulse 96 99 Oximetry Procedures - Procedural Sedation *Indications: diagnostic imaging procedure *Previous Adverse Reaction to Anesthesia/Sedation?: No *ASA Class: II *Mallampati Airway Score: 3 Preparation: teletypesetter monitor applied, pulse oximeter, supplemental O2 applied, suction/airway equipment at bedside Ketamine: IM Complications: none Patient Tolerated Procedure: well, no complications <Axel Sosa - Last Filed: 03/10/23 19:25> - Laceration Laceration #1 Consent Obtained: written consent Indication: laceration Site: face Size (cm): 2 Description: linear Depth: simple, single layer Size of Sutures: 5-0 Number of Sutures: 5 Technique: simple, interrupted Patient Tolerated Procedure: well, no complications <Yris Tavarez - Last Filed: 03/10/23 20:15> - Laceration Laceration #1 Additional Comments: Laceration repair completed under general sedation with ketamine; conscious sedation by Dr. Sosa. (Yris Tavarez) Medical Decision Making - Radiology Data Radiology results: report reviewed, image reviewed <Yris Tavarez - Last Filed: 03/10/23 20:15> - Medical Decision Making Was pt. sent in by a medical professional or institution (, PA, [employer]EW[employer] PROJECT MANAGER, urgent care, hospital, or half-way...) When possible be specific @ -No Did you speak to anyone other than the patient for history (EMS, parent, family, police, friend...)? What history was obtained from this source @ -No Did you review nursing and triage notes (agree or disagree)? Why? @ -I reviewed and agree with nursing and triage notes Were old charts reviewed (outside hosp., previous admission, EMS record, old EKG, old radiological studies, urgent care reports/EKG's, half-way records)? Report findings @ -No old charts were reviewed Differential Diagnosis (chest pain, altered mental status, abdominal pain women, abdominal pain men, vaginal bleeding, weakness, fever, dyspnea, syncope, headache, dizziness, GI bleed, back pain, seizure, CVA, palpatations, mental health, musculoskeletal)? @ -not applicable EKG interpreted by me (3pts min.). @ -None done X-rays interpreted by me (1pt min.). @ -None done CT interpreted by me (1pt min.). @ -CT brain and facial bones: No facial bone fractures. No mass or intracranial hemorrhage. 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 This finding is consistent with known cerebral palsy, developmental delay, seizure disorder and autism. U/S interpreted by me (1pt. min.). @ -None done What testing was considered but not performed or refused? (CT, X-rays, U/S, labs)? Why? @ -None What meds were considered but not given or refused? Why? @ -None Did you discuss the management of the patient with other professionals (professionals i.e. , PA, [employer]EWATER PROJECT MANAGER, lab, RT, psych nurse, school social worker, tube worker, teacher, motorcycle police officer, returned case inspector)? Give summary @ -No Was smoking cessation discussed for >3mins.? @ -No Was critical care preformed (if so, how long)? @ -No Were there social determinants of health that impacted care today? How? (Homelessness, low income, unemployed, alcoholism, drug addiction, transportation, low edu. Level, literacy, decrease access to med. care, [facility], rehab)? @ -No Was there de-escalation of care discussed even if they declined (Discuss DNR or withdrawal of care, Hospice)? DNR status @ -No What co-morbidities impacted this encounter? (DM, HTN, Smoking, COPD, CAD, Cance r, CVA, ARF, Chemo, Hep., AIDS, mental health diagnosis, sleep apnea, morbid obesity)? @ -None Was patient admitted / discharged? Hospital course, mention meds given and route, prescriptions, significant lab abnormalities, going to OR and other pertinent info. @ -22-year-old male well known to the emergency room who presents after a fall onto the cement earlier today. His caregivers report he was walking and stumbled causing him to fall to the ground. He has frequent falls with a healing abrasion to his right knee. His caregivers report that he is exhibiting some abnormal behaviors for him including chewing on his lap belt for his wheelchair and covering his ears continuously as if he had a headache. Unfortunately he is minimally verbal with minimal ability to follow commands or give appropriate verbal responses. He has an abrasion to the central aspect of his forehead along with a laceration to his right eye. He has abrasions to both knees the abrasion; abrasion to his left knee is now. Caregivers deny any range of motion impairments beyond normal range of motion impairments due to his cerebral palsy and developmental delay. In addition to his developmental delay and cerebral palsy. Will obtain CT of the brain and facial bones and plan for laceration closure. Due to developmental delay, or system and cerebral palsy will need conscious sedation for computed tomography scan and laceration closure. Will apply let prior to sedation to help with local anesthesia to laceration above right eye. Patient tolerated conscious sedation well with IM ketamine administered by Dr. Sosa. Computed tomography scan completed and laceration closed without complication. Nonadherent bandage applied to avoid irritation and patient pulling on sutures. Wound care discussed with caregivers at bedside at length. Computed tomography scan results with no known chronic changes reiterated to caregivers. Questions and concerns answered. Return parameters discussed. Will discharge home with caregivers encouraging fall precautions and continued monitoring and localized wound care for laceration to right eyebrow. Undiagnosed new problem with uncertain prognosis? @ -No Drug Therapy requiring intensive monitoring for toxicity (Heparin, Nitro, Insulin, Cardizem)? @ -No Were any procedures done? @ -Yes, laceration closure with conscious sedation see procedures for details. Diagnosis/symptom? @ -Fall Acute, or Chronic, or Acute on Chronic? @ -Acute Uncomplicated (without systemic symptoms) or Complicated (systemic symptoms)? @ -Uncomplicated Side effects of treatment? @ -No Exacerbation, Progression, or Severe Exacerbation? @ -No Poses a threat to life or bodily function? How? (Chest pain, USA, [place], pneumonia, PE, COPD, DKA, ARF, appy, cholecystitis, CVA, Diverticulitis, Homicidal, Suicidal, threat to staff... and all critical care pts) @ -No Diagnosis/symptom? @ -Laceration right eyebrow Acute, or Chronic, or Acute on Chronic? @ -Acute Uncomplicated (without systemic symptoms) or Complicated (systemic symptoms)? @ -Uncomplicated Side effects of treatment? @ -none Exacerbation, Progression, or Severe Exacerbation] @ -no Poses a threat to life or bodily function? @ -no Case discussed with and conscious sedation completed with Dr. Sosa. (Yris Tavarez) Disposition <Axel Sosa - Last Filed: 03/10/23 19:25> Is patient prescribed a controlled substance at d/c from ED?: No Time of Disposition: 18:35 <Yris Tavarez - Last Filed: 03/10/23 20:15> Clinical Impression: Fall, Laceration of right eyebrow Disposition: HOME SELF-CARE Condition: Stable Instructions (If sedation given, give patient instructions): Care For Your Stitches (ED), Laceration (ED), Moderate Sedation (ED), Fall Prevention (ED) Additional Instructions: Please keep wound clean and dry. Monitor for signs and symptoms of infection and seek medical attention as appropriate if symptoms occur. Please return to the emergency department for suture removal in 5-7 days. Keep abrasions clean and dry. Continue to maintain safety and utilize helmet when ambulating. Please follow-up with primary care provider as needed. Please return to the Emergency Department if symptoms worsen or any other concerns. Referrals: Nonstaff,Physician [REFERRING] - 1-2 days
[2023-03-10] MEDS ORDERED: KETAMINE 50 MG/ML 10 ML VIAL IM ONE (15:17)
[2023-03-10 16:46] VITALS: RESP 18
--- NOTE | 2023-03-10 17:26 | CT ---
EXAMINATION TYPE: CT brain wo con, CT facial bones wo con CT DLP: 1436.4 mGycm, Automated exposure control for dose reduction was used. DATE OF EXAM: 03/10/2023 5:07 PM COMPARISON: CTs dating back to 01/18/2021. CLINICAL INDICATION:Male, 22 years old with history of fall, Fall TECHNIQUE: Brain: Axial CT images of the brain were obtained with coronal and sagittal reformats created and rev iewed. Facial: Axial imaging of facial structures with sagittal coronal reformats. Contrast used: None. Oral contrast used: None. FINDINGS: Brain: Extra-axial spaces: No abnormal extra-axial fluid collections. Ventricular system: Dilation of the ventricular system more than would be expected for patient's age. This is increased from the 01/18/2021 and 04/24/2022 studies. Cerebral parenchyma: No acute intraparenchymal hemorrhage or mass effect. The blair-white junction is well differentiated. Cerebellum: Unremarkable. Mass effect: No evidence of midline shift. Intracranial vasculature: unremarkable Soft tissues: Soft tissue swelling over the right zygomatic/cheek area. Calvarium/osseous structures: No depressed skull fracture. Paranasal sinuses and mastoid air cells: Mild scattered paranasal sinus disease. Visualized orbits: Orbital contents are intact. IMPRESSION: 1. No acute intracranial process. 2. Soft tissue swelling over the right zygomatic/cheek area. No evidence of fracture. 3. Dilation of the ventricular system more than would be expected for patient's age. This is increas ed from 01/18/2021 and 04/24/2022 studies, correlate for communicating hydrocephalus.
[2023-03-10 18:13] VITALS: BP 108/66; PULSE 98
== END 2023-03-10 18:54 | disposition home or self-care (01) ==
LOC: EC 14:19
DX: S01.111A Laceration without foreign body of right eyelid and periocular area, initial encounter (principal); S80.212A Abrasion, left knee, initial encounter; S80.211A Abrasion, right knee, initial encounter; Z88.8 Allergy status to other drugs, medicaments and biological substances; W01.198A Fall on same level from slipping, tripping and stumbling with subsequent striking against other object, initial encounter; Y93.01 Activity, walking, marching and hiking
CPT/HCPCS: 12011; 70450; 70486; 90471; 90715; 99152; 99283

== ENCOUNTER 2023-04-17 10:15 | Emergency (ER) | payer MEDICARE, OTHER ==
--- NOTE | 2023-04-17 10:53 | ED ---
Wound/Laceration HPI - General Chief Complaint: Wound/Laceration Stated Complaint: facial laceration Time Seen by Provider: 04/17/23 10:40 Source: family Limitations: altered mental status, physical limitation - History of Present Illness Initial Comments: The patient is a 22-year-old nonverbal autistic gentleman with a seizure history who presents to the emergency room accompanied by his caregivers for a laceration over the right eyebrow. The patient bumped the right eyebrow over a pantry door last night around 7 PM causing a previous laceration to really open not seen last night however, comes in today for further evaluation. The patient did not have any LOC. He has had no nausea vomiting or abnormal behavior. He is not on any anticoagulation. Vaccinations are up-to-date Patient Tetanus UTD: Yes Context: accidental - Related Data Home Medications Medication Instructions Recorded Confirmed Fludrocortisone [Florinef] 0.1 mg PO TID@0800,1600,199912/08/21 05/31/22 cloNIDine HCL [Catapres] 0.1 mg PO BID@0800,199912/19/21 05/31/22 Lactulose 10 gm PO BID@0800,199904/23/22 05/31/22 Docusate Sodium [Dok] 100 mg PO BID@0800,199905/31/22 05/31/22 Doxepin HCl 50 mg PO HS@199905/31/22 05/31/22 Melatonin 10 mg PO HS@199905/31/22 05/31/22 OLANZapine [ZyPREXA] 10 mg PO BID PRN 05/31/22 05/31/22 Valproic Acid [Depakene] 1,000 mg PO BID@0800,199905/31/22 05/31/22 chlorproMAZINE HCL [Thorazine] 200 mg PO BID@0800,199905/31/22 05/31/22 diphenhydrAMINE [Benadryl] 50 mg PO HS@199905/31/22 05/31/22 lamoTRIgine [LaMICtal] 200 mg PO BID@0800,199905/31/22 05/31/22 traZODone HCL 300 mg PO HS@199905/31/22 05/31/22 Previous Rx's Medication Instructions Recorded lamoTRIgine [LaMICtal] 225 mg PO BID 12 Days #24 tablet 01/27/23 Allergies Allergy/AdvReac Type Severity Reaction Status Date / Time haloperidol [From Haldol] AdvReac Unknown Verified 04/17/23 10:37 lorazepam [From Ativan] AdvReac Confusion Verified 04/17/23 10:37 Review of Systems ROS Statement: Those systems with pertinent positive or pertinent negative responses have been documented in the HPI. ROS Other: All systems not noted in ROS Statement are negative. Past Medical History Additional Past Medical History / Comment(s): autism, cerebral palsy, cognitive delay History of Any Multi-Drug Resistant Organisms: Unobtainable Past Surgical History: Unable to Obtain Past Psychological History: ADD/ADHD Smoking Status: Unknown if ever smoked Past Alcohol Use History: Unable to Obtain Past Drug Use History: Unable to Obtain General Exam - General Exam Comments Initial Comments: 2.9 cm laceration over the right eyebrow no active bleeding mild stranding swelling with no ecchymosis. He has already started no excoriation or surrounding erythema or warmth Limitations: altered mental status, physical limitation Head exam: Present: other (Laceration over the upper right eyebrow with moderate amount of swelling. No ecchymosisor any erythema or warmth no active bleeding. No hemotympanum bilaterally. Pupils are equal and reactive bilaterally. Negative for any vital sign or raccoon eyes.) Eye exam: Present: normal appearance, PERRL, EOMI Pupils: Present: normal accommodation ENT exam: Present: normal exam Expanded Neck exam: Present: other (No tenderness of palpation or range of motion no midline tenderness) Respiratory exam: Present: normal lung sounds bilaterally Cardiovascular Exam: Present: regular rate Extremities exam: Present: full ROM Neurological exam: Present: alert Skin exam: Present: other (2.9 cm laceration over the right eyebrow no active bleeding noted surrounding erythema or warmth.) Course Vital Signs 04/17/23 04/17/23 10:31 12:03 Temperature 97.7 F Pulse Rate 84 100 Respiratory 22 16 Rate Blood Pressure 115/68 O2 Sat by Pulse 100 Oximetry - Reevaluation(s) Time: 12:52 (Patient tolerated laceration repair well. The sedation worked well in on reevaluation patient is alert and moving his extremities as he went at baseline. They are eager to go home at this time.) Procedures - Procedures Initial comment: 2.9 cm laceration over the right eyebrow was repaired using 3 mL of 1% lidocaine. #6, 5-0 simple interrupted superficial sutures were applied. Wound was copiously cleaned with Betadine and normal saline prior to closure. Patient was pre-sedated with 10 mg IM Geodon and 2 mg IM of Ativan. He tolerated the suture repair well. Total time 16 minutes. - Laceration Laceration #1 Indication: laceration Site: face Description: irregular Depth: simple, single layer Sedation/Analgesia: none (IM Ativan, IM Geodon) Anesthetic Used: lidocaine 1% Anesthesia Technique: local infiltration Pre-repair: irrigated extensively Type of Sutures: nylon Size of Sutures: 5-0 Technique: simple, interrupted Patient Tolerated Procedure: well Medical Decision Making - Medical Decision Making Was pt. sent in by a medical professional or institution (KIMBERLY Abraham, AIR TUCKER, urgent care, hospital, or long-term...) When possible be specific @ -Sent in by [facility] Did you speak to anyone other than the patient for history (EMS, parent, family, police, friend...)? What history was obtained from this source @ -Caretakers at [facility] Did you review nursing and triage notes (agree or disagree)? Why? @ -[I reviewed and agree with nursing and triage notes] Were old charts reviewed (outside hosp., previous admission, EMS record, old EKG, old radiological studies, urgent care reports/EKG's, long-term records)? Report findings @ -Is old charts were reviewed Differential Diagnosis (chest pain, altered mental status, abdominal pain women, abdominal pain men, vaginal bleeding, weakness, fever, dyspnea, syncope, headache, dizziness, GI bleed, back pain, seizure, CVA, palpatations, mental health, musculoskeletal)? @ -Laceration of the face, abrasion EKG interpreted by me (3pts min.). @ -[As above] X-rays interpreted by me (1pt min.). @ -[None done] CT interpreted by me (1pt min.). @ -[None done] U/S interpreted by me (1pt. min.). @ -[None done] What testing was considered but not performed or refused? (CT, X-rays, U/S, labs)? Why? @ -[None] What meds were considered but not given or refused? Why? @ -[None] Did you discuss the management of the patient with other professionals (professionals i.e. Dr., PA, AIR TUCKER, lab, RT, psych nurse, social studies department chair, bailer tenders supervisor, teacher, uniform patrol police officer, casey saw operator)? Give summary @ -Discussed patient's injury, and management in the ER and sedation planned with attending ED physician Dr. Castle who also saw the patient in the room. Was smoking cessation discussed for >3mins.? @ -[No] Was critical care preformed (if so, how long)? @ -[No] Were there social determinants of health that impacted care today? How? (Ho melessness, low income, unemployed, alcoholism, drug addiction, transportation, low edu. Level, literacy, decrease access to med. care, assisted, rehab)? @ -[No] Was there de-escalation of care discussed even if they declined (Discuss DNR or withdrawal of care, Hospice)? DNR status @ -[No] What co-morbidities impacted this encounter? (DM, HTN, Smoking, COPD, CAD, Cancer, CVA, ARF, Chemo, Hep., AIDS, mental health diagnosis, sleep apnea, morbid obesity)? @ -History of autism and nonverbal. Patient required moderate sedation with IM Ativan and Geodon for suture repair. He did tolerate this well Was patient admitted / discharged? Hospital course, mention meds given and route, prescriptions, significant lab abnormalities, going to OR and other pertinent info. @ -Discharged home under the care of his caretakers at the [facility] Undiagnosed new problem with uncertain prognosis? @ -[No] Drug Therapy requiring intensive monitoring for toxicity (Heparin, Nitro, Insulin, Cardizem)? @ -[No] Were any procedures done? @ -Laceration repair was done, see procedure note attached Diagnosis/symptom? @ -Laceration of the right eyebrow Acute, or Chronic, or Acute on Chronic? @ -Acute Uncomplicated (without systemic symptoms) or Complicated (systemic symptoms)? @ -Uncomplicated Side effects of treatment? @ -Mild fatigue after moderate sedation Exacerbation, Progression, or Severe Exacerbation? @ -[No] Poses a threat to life or bodily function? How? (Chest pain, [place], [place], pneumonia, PE, COPD, DKA, ARF, appy, cholecystitis, CVA, Diverticulitis, Homicidal, Suicidal, threat to staff... and all critical care pts) @ -[No] Disposition Clinical Impression: Laceration Disposition: HOME SELF-CARE Condition: Good Instructions (If sedation given, give patient instructions): Laceration (ED), Moderate Sedation (ED), Facial Laceration (ED) Additional Instructions: Follow-up with PCP or ED in 7 days for suture removal Is patient prescribed a controlled substance at d/c from ED?: No Referrals: Lyle Rowley [Primary Care Provider] - 1-2 days Time of Disposition: 13:05
[2023-04-17] MEDS ORDERED: LORazepam 2 MG/ML INJ IM STA (11:21)
[2023-04-17] MEDS ORDERED: ZIPRASIDONE 20 MG VIAL IM STA (11:22)
[2023-04-17] MEDS ORDERED: LIDOCAINE 1% INJ 10MG/ML (20 ML MDV) SQ ONE (12:11)
[2023-04-17 13:14] VITALS: BP 132/79; PULSE 112; RESP 18; TEMP 97.9
== END 2023-04-17 13:21 | disposition home or self-care (01) ==
LOC: EC 10:15
DX: S01.111A Laceration without foreign body of right eyelid and periocular area, initial encounter (principal); F90.9 Attention-deficit hyperactivity disorder, unspecified type; Z88.8 Allergy status to other drugs, medicaments and biological substances; W22.09XA Striking against other stationary object, initial encounter
CPT/HCPCS: 99283; 12013; 96372 ×2; J2060; J2001; J3486

== ENCOUNTER 2023-05-19 09:53 | Emergency (ER) | payer MEDICARE, OTHER ==
[2023-05-19 10:16] VITALS: TEMP 98
[2023-05-19 10:55] VITALS: RESP 18
[2023-05-19] MEDS ORDERED: GELATIN SPONGE,ABSORB (SMALL) 1 EACH SPONGE TOPICAL STA (11:56)
--- NOTE | 2023-05-19 12:05 | ED ---
General Adult HPI - General Chief complaint: Head Injury Stated complaint: fall Time Seen by Provider: 05/19/23 11:12 Source: patient, RN notes reviewed Mode of arrival: ambulatory Limitations: no limitations - History of Present Illness Initial comments: 22-year-old male presents emergency department with chief complaint of fall. Patients caregiver states that he was walking when he tripped and fell hitting his forehead on the ground. This was witnessed by his caregivers who deny any loss of consciousness. Patient is on blood thinners. Patient is acting per his usual self. - Related Data Home Medications Medication Instructions Recorded Confirmed Fludrocortisone [Florinef] 0.1 mg PO TID@0800,1600,199912/08/21 05/31/22 cloNIDine HCL [Catapres] 0.1 mg PO BID@0800,199912/19/21 05/31/22 Lactulose 10 gm PO BID@0800,199904/23/22 05/31/22 Docusate Sodium [Dok] 100 mg PO BID@0800,199905/31/22 05/31/22 Doxepin HCl 50 mg PO HS@199905/31/22 05/31/22 Melatonin 10 mg PO HS@199905/31/22 05/31/22 OLANZapine [ZyPREXA] 10 mg PO BID PRN 05/31/22 05/31/22 Valproic Acid [Depakene] 1,000 mg PO BID@0800,199905/31/22 05/31/22 chlorproMAZINE HCL [Thorazine] 200 mg PO BID@0800,199905/31/22 05/31/22 diphenhydrAMINE [Benadryl] 50 mg PO HS@199905/31/22 05/31/22 lamoTRIgine [LaMICtal] 200 mg PO BID@0800,199905/31/22 05/31/22 traZODone HCL 300 mg PO HS@199905/31/22 05/31/22 Previous Rx's Medication Instructions Recorded lamoTRIgine [LaMICtal] 225 mg PO BID 12 Days #24 tablet 01/27/23 Allergies Allergy/AdvReac Type Severity Reaction Status Date / Time haloperidol [From Haldol] AdvReac Unknown Verified 05/19/23 10:14 lorazepam [From Ativan] AdvReac Confusion Verified 05/19/23 10:14 Review of Systems ROS Statement: Those systems with pertinent positive or pertinent negative responses have been documented in the HPI. ROS Other: All systems not noted in ROS Statement are negative. Past Medical History Additional Past Medical History / Comment(s): autism, cerebral palsy, cognitive delay History of Any Multi-Drug Resistant Organisms: Unobtainable Past Surgical History: Unable to Obtain Past Psychological History: ADD/ADHD Smoking Status: Unknown if ever smoked Past Alcohol Use History: Unable to Obtain Past Drug Use History: Unable to Obtain General Exam Limitations: no limitations General appearance: alert, in no apparent distress Head exam: Present: normocephalic, other (Abrasion to his central forehead) Eye exam: Present: normal appearance, PERRL, EOMI. Absent: scleral icterus, conjunctival injection, periorbital swelling ENT exam: Present: normal exam, mucous membranes moist Neck exam: Present: normal inspection. Absent: tenderness, meningismus, lymphadenopathy Respiratory exam: Present: normal lung sounds bilaterally. Absent: respiratory distress, wheezes, rales, rhonchi, stridor Cardiovascular Exam: Present: regular rate, normal rhythm, normal heart sounds. Absent: systolic murmur, diastolic murmur, rubs, gallop, clicks Extremities exam: Present: normal inspection, full ROM, normal capillary refill. Absent: tenderness, pedal edema, joint swelling, calf tenderness Back exam: Present: normal inspection Neurological exam: Present: alert, oriented X3 Psychiatric exam: Present: normal affect, normal mood Skin exam: Present: warm, dry, abrasion (Forehead) Course Vital Signs 05/19/23 05/19/23 05/19/23 10:11 10:52 12:22 Temperature 98 F Pulse Rate 74 99 82 Respiratory 20 18 18 Rate Blood Pressure 111/66 140/83 128/84 O2 Sat by Pulse 97 97 99 Oximetry Medical Decision Making - Medical Decision Making Was pt. sent in by a medical professional or institution (, PA, MACHINE PROGRAMMER, urgent care, hospital, or [facility]...) When possible be specific @ -No Did you speak to anyone other than the patient for history (EMS, parent, family, police, friend...)? What history was obtained from this source @ -caregivers provided the history Did you review nursing and triage notes (agree or disagree)? Why? @ -I reviewed and agree with nursing and triage notes Were old charts reviewed (outside hosp., previous admission, EMS record, old EKG, old radiological studies, urgent care reports/EKG's, [facility] records)? Report findings @ -No old charts were reviewed Differential Diagnosis (chest pain, altered mental status, abdominal pain women, abdominal pain men, vaginal bleeding, weakness, fever, dyspnea, syncope, headache, dizziness, GI bleed, back pain, seizure, CVA, palpatations, mental health, musculoskeletal)? @ -not applicable EKG interpreted by me (3pts min.). @ -none X-rays interpreted by me (1pt min.). @ -None done CT interpreted by me (1pt min.). @ -None done U/S interpreted by me (1pt. min.). @ -None done What testing was considered but not performed or refused? (CT, X-rays, U/S, labs)? Why? @ -CT considered but patient is not on blood thinners, did not lose consciousness, is not vomiting, and is acting per usual What meds were considered but not given or refused? Why? @ -None Did you discuss the management of the patient with other professionals (professionals i.e. , PA, MACHINE PROGRAMMER, lab, RT, psych nurse, social science research assistant, surgical aide, teacher, classifications officer cc/cm, caseworker intake)? Give summary @ -No Was smoking cessation discussed for >3mins.? @ -No Was critical care preformed (if so, how long)? @ -No Were there social determinants of health that impacted care today? How? (Homelessness, low income, unemployed, alcoholism, drug addiction, transportation, low edu. Level, literacy, decrease access to med. care, care home, rehab)? @ -No Was there de-escalation of care discussed even if they declined (Discuss DNR or withdrawal of care, Hospice)? DNR status @ -No What co-morbidities impacted this encounter? (DM, HTN, Smoking, COPD, CAD, Cancer, CVA, ARF, Chemo, Hep., AIDS, mental health diagnosis, sleep apnea, morbid obesity)? @ -None Was patient admitted / discharged? Hospital course, mention meds given and route, prescriptions, significant lab abnormalities, going to OR and other pertinent info. @ -Discharged Patient presented to emergency department for chief complaint of fall in which he fell hitting his head on the ground. He did not lose consciousness and is not on any blood thinners. He is acting as his typical self according to his caregivers who are with him. Patient has a small abrasion to his central forehead. Strict return precautions discussed. Patient stable at time of discharge. Case discussed with my attending, Dr. Shankar Undiagnosed new problem with uncertain prognosis? @ -No Drug Therapy requiring intensive monitoring for toxicity (Heparin, Nitro, Insulin, Cardizem)? @ -No Were any procedures done? @ -No Diagnosis/symptom? @ -fall Acute, or Chronic, or Acute on Chronic? @ -acute Uncomplicated (without systemic symptoms) or Complicated (systemic symptoms)? @ -uncomplicated Side effects of treatment? @ -No Exacerbation, Progression, or Severe Exacerbation? @ -No Poses a threat to life or bodily function? How? (Chest pain, [place], [place], pneumonia, PE, COPD, DKA, ARF, appy, cholecystitis, CVA, Diverticulitis, Homicidal, Suicidal, threat to staff... and all critical care pts) @ -No Disposition Clinical Impression: Contusion of scalp Disposition: HOME SELF-CARE Condition: Stable Instructions (If sedation given, give patient instructions): Acute Wound Care (ED) Additional Instructions: Please follow up with your primary care provider. Return to the emergency department for new or worsening symptoms. Is patient prescribed a controlled substance at d/c from ED?: No Referrals: Lyle Rowley [Primary Care Provider] - 1-2 days Time of Disposition: 12:18
[2023-05-19 12:28] VITALS: BP 128/84; PULSE 82
== END 2023-05-19 12:22 | disposition home or self-care (01) ==
LOC: EC 09:53
DX: S00.03XA Contusion of scalp, initial encounter (principal); F90.9 Attention-deficit hyperactivity disorder, unspecified type; Z79.899 Other long term (current) drug therapy; Z88.6 Allergy status to analgesic agent; Z88.8 Allergy status to other drugs, medicaments and biological substances; W01.10XA Fall on same level from slipping, tripping and stumbling with subsequent striking against unspecified object, initial encounter; Y93.01 Activity, walking, marching and hiking
CPT/HCPCS: 99283

== ENCOUNTER 2023-10-10 13:44 | Emergency (ER) | payer MEDICARE, OTHER ==
[2023-10-10 14:06] VITALS: RESP 16; TEMP 97.6
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
[2023-10-10] MEDS: TOPICAL SKIN ADHESIVE 1 EACH AMP TOPICAL ONE ×2 (15:03)
[2023-10-10 15:08] VITALS: BP 140/60; PULSE 86
== END 2023-10-10 15:24 | disposition home or self-care (01) ==
LOC: EC 13:44
DX: S01.111A Laceration without foreign body of right eyelid and periocular area, initial encounter (principal); F90.9 Attention-deficit hyperactivity disorder, unspecified type; Z79.899 Other long term (current) drug therapy; Z88.8 Allergy status to other drugs, medicaments and biological substances; W19.XXXA Unspecified fall, initial encounter; Y92.009 Unspecified place in unspecified non-institutional (private) residence as the place of occurrence of the external cause; Y93.01 Activity, walking, marching and hiking
CPT/HCPCS: 12013; 99283

== ENCOUNTER 2024-11-20 10:54 | Emergency (ER) | payer MEDICARE, OTHER ==
--- NOTE | 2024-11-20 11:01 | ED ---
Fall HPI - General Stated Complaint: Fall Time Seen by Provider: 11/20/24 10:59 Source: patient, RN notes reviewed Mode of arrival: EMS Limitations: language barrier - History of Present Illness Initial Comments: 24-year-old male presented to the ER via EMS for evaluation of falls. Patient currently resides at a assisted. History is limited given patient's history of autism, cerebral palsy and cognitive delay. Patient is nonverbal. Per [employer] tray worker, she was giving patient a shower this morning when he started to have jerking motions. She states while attempting to get patient out of the shower patient was stumbling backwards against the back wall. She states in a matter of 10 minutes patient had 3 falls. Patient has had increased agitation today as well. She denies any head injury, blood thinner use or loss of consciousness. She states when patient had previous grand mal seizures these were presenting symptoms. Patient did receive morning medications around 9 or 930 today. Patient currently takes Lamictal and Depakote. Caregivers at bedside state patient has been holding his head and they are concerned as he has history of brain bleeds. - Related Data Home Medications Medication Instructions Recorded Confirmed Lactulose 10 gm PO BID PRN 04/23/22 10/18/24 Docusate Sodium [Dok] 100 mg PO BID@0800,199905/31/22 10/18/24 Doxepin HCl 50 mg PO HS@199905/31/22 10/18/24 Melatonin 10 mg PO HS@199905/31/22 10/18/24 lamoTRIgine [LaMICtal] 200 mg PO Q12HR@0800,199905/31/22 10/18/24 Benztropine Mesylate [Cogentin] 1 mg PO BID@0800,199910/18/24 10/18/24 Cholecalciferol [Vitamin D3 (25 50 mcg PO DAILY@0800 10/18/24 10/18/24 Mcg = 1000 Iu)] QUEtiapine [SEROquel] 25 mg PO DAILY@1400 10/18/24 10/18/24 QUEtiapine [SEROquel] 50 mg PO HS@199910/18/24 10/18/24 Valproic Acid Oral Soln [Depakene 1,250 mg PO BID@0800,199910/18/24 10/18/24 Syrup] chlorproMAZINE [Thorazine] 25 mg PO TID@0800,1400,199910/18/24 10/18/24 chlorproMAZINE [Thorazine] 100 mg PO TID@0800,1400,199910/18/24 10/18/24 lamoTRIgine [LaMICtal] 25 mg PO Q12HR@0800,199910/18/24 10/18/24 polyethylene glycoL 3350 [Miralax] 17 gm PO DAILY@0800 10/18/24 10/18/24 traZODone HCL [Desyrel] 100 mg PO TID@0800,1400,199910/18/24 10/18/24 Allergies Allergy/AdvReac Type Severity Reaction Status Date / Time haloperidol [From Haldol] AdvReac Thought to Verified 11/20/24 11:00 have contributed to previous brain bleed. lorazepam [From Ativan] AdvReac Confusion, Verified 11/20/24 11:00 Paradoxical reaction - agitation. Review of Systems ROS Statement: Those systems with pertinent positive or pertinent negative responses have been documented in the HPI. ROS Other: All systems not noted in ROS Statement are negative. Past Medical History Additional Past Medical History / Comment(s): autism, cerebral palsy, cognitive delay History of Any Multi-Drug Resistant Organisms: Unobtainable Past Surgical History: Unable to Obtain Past Psychological History: ADD/ADHD Smoking Status: Unknown if ever smoked Past Alcohol Use History: Unable to Obtain Past Drug Use History: Unable to Obtain General Exam - General Exam Comments Initial Comments: Visual Physical Exam Vital signs reviewed General: Well-appearing, nontoxic, no acute distress. Head: Normocephalic, atraumatic Eyes: PERRLA, EOMI ENT: Airway patent Chest: Nonlabored breathing Skin: No visual rash, normal skin tone Musculoskeletal: No gross abnormalities Limitations: language barrier (nonverbal), altered mental status (austism and cognative delay) General appearance: alert, in no apparent distress Head exam: Present: atraumatic, normocephalic, normal inspection Eye exam: Present: normal appearance, PERRL, EOMI. Absent: scleral icterus, conjunctival injection, periorbital swelling Pupils: Present: normal accommodation ENT exam: Present: normal exam, normal oropharynx, mucous membranes moist, TM's normal bilaterally Respiratory exam: Present: normal lung sounds bilaterally. Absent: respiratory distress, wheezes, rales, rhonchi, stridor Cardiovascular Exam: Present: regular rate, normal rhythm, normal heart sounds. Absent: systolic murmur, diastolic murmur, rubs, gallop, clicks GI/Abdominal exam: Present: soft, normal bowel sounds. Absent: distended, tenderness, guarding, rebound, rigid Extremities exam: Present: normal inspection, full ROM, normal capillary refill, other (patient freely moving all extremities) Neurological exam: Present: alert Skin exam: Present: warm, dry, intact, normal color. Absent: rash Course Vital Signs 11/20/24 11/20/24 10:55 17:03 Temperature 98.6 F Pulse Rate 111 H 83 Respiratory 18 16 Rate Blood Pressure 116/80 114/77 O2 Sat by Pulse 98 98 Oximetry Medical Decision Making - Medical Decision Making I performed the quick note portion of this chart. Electronically signed by Rufino Hernandez PA-C Was pt. sent in by a medical professional or institution ([facility] Abraham, GRADUATE NURSE, urgent care, hospital, or [facility]...) When possible be specific @ -Patient sent by assisted for evaluation of multiple falls Did you speak to anyone other than the patient for history (EMS, parent, family, police, friend...)? What history was obtained from this source @ -Case discussed with tray worker [employer] over the phone. Case was also discussed with 2 caregivers that arrived to the emergency department. They provided HPI and past medical history as patient is nonverbal. Did you review nursing and triage notes (agree or disagree)? Why? @ -I reviewed and agree with nursing and triage notes Were old charts reviewed (outside hosp., previous admission, EMS record, old EKG, old radiological studies, urgent care reports/EKG's, [facility] records)? Report findings @ -Prior ED visit Differential Diagnosis (chest pain, altered mental status, abdominal pain women, abdominal pain men, vaginal bleeding, weakness, fever, dyspnea, syncope, headache, dizziness, GI bleed, back pain, seizure, CVA, palpatations, mental h ealth, musculoskeletal)? @ -Fracture, dislocation, contusion, hematoma, intracranial hemorrhage, c oncussion, abrasion, laceration this list does not like to be all-inclusive EKG interpreted by me (3pts min.). @ -None done X-rays interpreted by me (1pt min.). @ -CXR interpreted by me showing no focal consolidations, pneumothorax or pleural effusions CT interpreted by me (1pt min.). @ -CT brain showing no acute intracranial hemorrhage. Mild hydrocephalus same as prior U/S interpreted by me (1pt. min.). @ -None done What testing was considered but not performed or refused? (CT, X-rays, U/S, labs)? Why? @ -None What meds were considered but not given or refused? Why? @ -None Did you discuss the management of the patient with other professionals (professionals i.e. , PA, GRADUATE NURSE, lab, RT, psych nurse, director social service, urgent care physician, teacher, seismology technical officer, disability case manager)? Give summary @ -No Was smoking cessation discussed for >3mins.? @ -No Was critical care preformed (if so, how long)? @ -No Were there social determinants of health that impacted care today? How? (Homelessness, low income, unemployed, alcoholism, drug addiction, transportation, low edu. Level, literacy, decrease access to med. care, detention, rehab)? @ -Patient resides at assisted. Was there de-escalation of care discussed even if they declined (Discuss DNR or withdrawal of care, Hospice)? DNR status @ -No What co-morbidities impacted this encounter? (DM, HTN, Smoking, COPD, CAD, Cancer, CVA, ARF, Chemo, Hep., AIDS, mental health diagnosis, sleep apnea, morbid obesity)? @ -Autism, seizure disorder, cognitive delay, cerebral palsy Was patient admitted / discharged? Hospital course, mention meds given and rout e, prescriptions, significant lab abnormalities, going to OR and other pertinent info. @ -Discharge. 24-year-old male presented to the ER via EMS for evaluation of multiple falls. Patient is tachycardic upon arrival likely due to agitation, improved, vitals otherwise within acceptable limits. Initial examination unable to be performed given patient's agitation and nonverbal, IM Geodon given. Once caregivers arrived at bedside, history and physical exam completed. Patient in no signs of acute distress. Laboratory studies obtained unremarkable. Valproic acid level 73.6, Lamictal level 11.2. Viral swabs negative. Chest x-ray negative. CT brain performed given patient's history of brain bleed and is negative for acute process. Upon reevaluation, patient resting comfortably in exam room no signs of acute distress. Results discussed with caregivers, all questions answered. I advised close follow-up with PCP. Strict return parameters discussed caregivers verbally expressed understanding and agreement with care plan. Case discussed with ED attending, Dr. Ramírez. Undiagnosed new problem with uncertain prognosis? @ -No Drug Therapy requiring intensive monitoring for toxicity (Heparin, Nitro, Insulin, Cardizem)? @ -No Were any procedures done? @ -No Diagnosis/symptom? @ -Fall Acute, or Chronic, or Acute on Chronic? @ -Acute Uncomplicated (without systemic symptoms) or Complicated (systemic symptoms)? @ -Uncomplicated Side effects of treatment? @ -No Exacerbation, Progression, or Severe Exacerbation? @ -No Poses a threat to life or bodily function? How? (Chest pain, [place], [place], pneumonia, PE, COPD, DKA, ARF, appy, cholecystitis, CVA, Diverticulitis, Homicidal, Suici january, threat to staff... and all critical care pts) @ -No - Lab Data Result diagrams: 11/20/24 14:21 11/20/24 14:21 Lab Results 11/20/24 11/20/24 11/20/24 Range/Units 13:56 14:21 14:21 WBC 4.6 (3.8-10.6) k/uL RBC 5.21 (4.30-5.90) m/uL Hgb 15.1 (13.0-17.5) gm/dL Hct 45.3 (39.0-53.0) % MCV 87.1 (80.0-100.0) fL MCH 29.0 (25.0-35.0) pg MCHC 33.3 (31.0-37.0) g/dL RDW 12.2 (11.5-15.5) % Plt Count 184 (150-450) k/uL MPV 8.0 Neutrophils % 61 % Lymphocytes % 29 % Monocytes % 7 % Eosinophils % 0 % Basophils % 0 % Neutrophils # 2.8 (1.3-7.7) k/uL Lymphocytes # 1.3 (1.0-4.8) k/uL Monocytes # 0.3 (0-1.0) k/uL Eosinophils # 0.0 (0-0.7) k/uL Basophils # 0.0 (0-0.2) k/uL Sodium 139 (137-145) mmol/L Potassium 4.3 (3.5-5.1) mmol/L Chloride 99 (98-107) mmol/L Carbon Dioxide 30 (22-30) mmol/L Anion Gap 10 mmol/L BUN 13 (9-20) mg/dL Creatinine 0.60 L (0.66-1.25) mg/dL Est GFR (CKD-EPI)AfAm >90 (>60 ml/min/1.73 sqM) Est GFR (CKD-EPI)NonAf >90 (>60 ml/min/1.73 sqM) Glucose 94 (74-99) mg/dL Plasma Lactic Acid Mino (0.7-2.0) mmol/L Calcium 10.3 H (8.4-10.2) mg/dL Total Bilirubin 0.4 (0.2-1.3) mg/dL AST 24 (17-59) U/L ALT 18 (4-49) U/L Alkaline Phosphatase 76 (38-126) U/L Total Protein 7.3 (6.3-8.2) g/dL Albumin 4.6 (3.5-5.0) g/dL Valproic Acid 73.6 ug/mL Lamotrigine (2.0-15.0) ug/mL Influenza Type A (PCR) Not Detected (Not Detectd) Influenza Type B (PCR) Not Detected (Not Detectd) RSV (PCR) Not Detected (Not Detectd) SARS-CoV-2 (PCR) Not Detected (Not Detectd) 11/20/24 11/20/24 Range/Units 14:21 14:21 WBC (3.8-10.6) k/uL RBC (4.30-5.90) m/uL Hgb (13.0-17.5) gm/dL Hct (39.0-53.0) % MCV (80.0-100.0) fL MCH (25.0-35.0) pg MCHC (31.0-37.0) g/dL RDW (11.5-15.5) % Plt Count (150-450) k/uL MPV Neutrophils % % Lymphocytes % % Monocytes % % Eosinophils % % Basophils % % Neutrophils # (1.3-7.7) k/uL Lymphocytes # (1.0-4.8) k/uL Monocytes # (0-1.0) k/uL Eosinophils # (0-0.7) k/uL Basophils # (0-0.2) k/uL Sodium (137-145) mmol/L Potassium (3.5-5.1) mmol/L Chloride (98-107) mmol/L Carbon Dioxide (22-30) mmol/L Anion Gap mmol/L BUN (9-20) mg/dL Creatinine (0.66-1.25) mg/dL Est GFR (CKD-EPI)AfAm (>60 ml/min/1.73 sqM) Est GFR (CKD-EPI)NonAf (>60 ml/min/1.73 sqM) Glucose (74-99) mg/dL Plasma Lactic Acid Mino 1.0 (0.7-2.0) mmol/L Calcium (8.4-10.2) mg/dL Total Bilirubin (0.2-1.3) mg/dL AST (17-59) U/L ALT (4-49) U/L Alkaline Phosphatase (38-126) U/L Total Protein (6.3-8.2) g/dL Albumin (3.5-5.0) g/dL Valproic Acid ug/mL Lamotrigine 11.2 (2.0-15.0) ug/mL Influenza Type A (PCR) (Not Detectd) Influenza Type B (PCR) (Not Detectd) RSV (PCR) (Not Detectd) SARS-CoV-2 (PCR) (Not Detectd) - Radiology Data Radiology results: report reviewed, image reviewed Disposition Clinical Impression: Fall Disposition: HOME SELF-CARE Condition: Stable Additional Instructions: Follow-up with PCP. Return to the ER for any new or worsening symptoms. Is patient prescribed a controlled substance at d/c from ED?: No Referrals: Lyle Rowley [Primary Care Provider] - 1-2 days Time of Disposition: 16:30
[2024-11-20 11:04] VITALS: TEMP 98.6
[2024-11-20] MEDS: QUEtiapine 25 MG TAB PO STA (12:22)
[2024-11-20] MEDS: ZIPRASIDONE 20 MG VIAL IM STA ×2 (12:30→14:22)
[2024-11-20 14:29] LABS: Basophils % (A) 0 %; Eosinophils % (A) 0 %; HCT 45.3 % (39.0-53.0); HGB 15.1 gm/dL (13.0-17.5); Lymphocytes # (A) 1.3 k/uL (1.0-4.8); Lymphocytes % (A) 29 %; MCHC 33.3 g/dL (31.0-37.0); MCV 87.1 fL (80.0-100.0); Monocytes # (A) 0.3 k/uL (0-1.0); Monocytes % (A) 7 %; Neutrophils # (A) 2.8 k/uL (1.3-7.7); Neutrophils % (A) 61 %; Platelet Count 184 k/uL (150-450); RBC 5.21 m/uL (4.30-5.90); RDW 12.2 % (11.5-15.5); WBC 4.6 k/uL (3.8-10.6)
[2024-11-20 14:44] LABS: ALT 18 U/L (4-49); AST 24 U/L (17-59); African American GFR (CKD) >90 (>60 ml/min/1.73 sqM); Albumin 4.6 g/dL (3.5-5.0); Alkaline Phosphatase 76 U/L (38-126); Anion Gap 10 mmol/L; Blood Urea Nitrogen 13 mg/dL (9-20); Calcium 10.3 mg/dL (8.4-10.2); Carbon Dioxide 30 mmol/L (22-30); Chloride 99 mmol/L (98-107); Glucose 94 mg/dL (74-99); Non-African American GFR(CKD) >90 (>60 ml/min/1.73 sqM); Potassium 4.3 mmol/L (3.5-5.1); Sodium 139 mmol/L (137-145); Total Bilirubin 0.4 mg/dL (0.2-1.3); Total Protein 7.3 g/dL (6.3-8.2)
[2024-11-20 14:49] LABS: Valproic Acid (Depakene) 73.6 ug/mL
[2024-11-20 15:04] LABS: Influenza A Not Detected (Not Detectd); Influenza B Not Detected (Not Detectd); RSV Not Detected (Not Detectd)
--- NOTE | 2024-11-20 15:12 | CT ---
EXAMINATION TYPE: CT brain wo con CT DLP: 1405.4 mGycm, Automated exposure control for dose reduction was used. DATE OF EXAM: 11/20/2024 2:58 PM COMPARISON: CT brain facial bones 03/20/2023, CT brain 04/24/2022, 12/19/2021, 12/08/2021 CLINICAL INDICATION:Male, 24 years old with history of agitation, Fall x 3 today, no injuries. No thi nners, did not hit head. TECHNIQUE: Brain: Multiple axial CT images of the brain were obtained without IV contrast. . Coronal and sagitta l reformats reviewed. FINDINGS: Brain: Extra-axial spaces: No abnormal extra-axial fluid collections. Ventricular system: Stable hydrocephalus. Cerebral parenchyma: No acute intraparenchymal hemorrhage or mass effect. The blair-white junction is well differentiated. Cerebellum: Unremarkable. Mass effect: No evidence of midline shift. Intracranial vasculature: unremarkable Soft tissues: Normal. Calvarium/osseous structures: No depressed skull fracture. Paranasal sinuses and mastoid air cells: Inferior left maxillary sinus 2.5 cm mucous retention cyst. The remaining paranasal sinuses are clear. The mastoid air cells are clear. Visualized orbits: Orbital contents are intact. IMPRESSION: 1. No acute intracranial hemorrhage. 2. Similar mild hydrocephalus from prior CT. [facility], , 11/20/2024 3:10 PM
--- NOTE | 2024-11-20 16:08 | XR ---
EXAMINATION TYPE: XR chest 1V DATE OF EXAM: 11/20/2024 3:50 PM COMPARISON: 09/02/2021 CLINICAL INDICATION: Male, 24 years old with history of agitation, TECHNIQUE: Single frontal view of the chest is obtained. FINDINGS: There is no focal air space opacity, pleural effusion, or pneumothorax seen. The cardiac silhouette size is within normal limits. The osseous structures are intact. IMPRESSION: No acute process. [facility], , 11/20/2024 4:05 PM
[2024-11-20 17:06] VITALS: BP 114/77; PULSE 83; RESP 16
== END 2024-11-20 17:20 | disposition home or self-care (01) ==
LOC: EC 10:54
DX: R45.1 Restlessness and agitation (principal); G80.9 Cerebral palsy, unspecified; F84.0 Autistic disorder; G40.909 Epilepsy, unspecified, not intractable, without status epilepticus; R41.89 Other symptoms and signs involving cognitive functions and awareness; Z88.8 Allergy status to other drugs, medicaments and biological substances; W18.30XA Fall on same level, unspecified, initial encounter; Y93.E1 Activity, personal bathing and showering
CPT/HCPCS: 36415; 80164; 80053; 80175; 83605; 85025; 87636; 71045; 70450; 99284; 96372 ×2; J3486